=== PATIENT | female | born 1940 | race Caucasian/White ===

== ENCOUNTER 2021-05-08 10:19 | Emergency (ER) | payer OTHER ==
--- OUTSIDE RECORDS SUMMARY | 2021-05-08 10:22 | XMS REPORT | Continuity of Care Document ---
:1940 Author Organization [facility] t Address [address] [place] [address] Care Team Providers Name Role Phone Unavailable Unavailable Unavailable Problems This patient has no known problems. Allergies, Adverse Reactions, Alerts This patient has no known allergies or adverse reactions. Medications This patient has no known medications. Procedures This patient has no known procedures. Encounters Start End Encounter Admission Attending Care Care Encounter Source Date/Time Date/Time Type Type Clinicians Facility Department ID 2021-03-26 Outpatient [facility] [id number] [facility] 14:26:11 [id number] [facility] ent Clinics 2021-03-26 Outpatient [facility] [id number] [facility] 14:24:29 [id number] [facility] ent [facility] Results This patient has no known results.
--- NOTE | 2021-05-08 11:59 | RAD REPORT ---
EXAM DESCRIPTION: US - Extremity Venous Uni Ltd - 05/08/2021 11:47 am CLINICAL HISTORY: PAIN Leg swelling and edema. COMPARISON: Upper Lower Extrem Art Multi dated 04/16/2021 FINDINGS: Left lower extremity venous system was interrogated with Doppler technique. Normal flow, c ompressibility and augmentation was noted. There is no DVT present. IMPRESSION: No evidence of left lower extremity deep venous thrombosis.
--- NOTE | 2021-05-08 12:05 | EDPHYS ---
Physician Documentation [facility] Name: Jami Woodruff Age: 80 yrs Sex: Female : 1940 Arrival Date: 05/08/2021 Time: 10:22 Bed 23 Private MD: ED Physician Trevon De La Cruz HPI: 05/08 10:22 This 80 yrs old Female presents to ER via EMS with complaints of Wound Check. ms3 10:22 Patient presents to ED for recheck of: Ulcerations. The affected area is on the left ms3 leg. Previous treatment: [facility]. Progress: The patient reports no change in pain. 80 yo female presents from [place] via [facility] for Left leg pain. Patient states the pain is a 5/10 and aching. Patient denies alleviating or inciting factors. Patient denies fever, chills, cp, or sob.. Historical: - Allergies: 10:33 No Known Allergies; aa5 - PMHx: 10:33 Venous Insufficiency; aa5 - Immunization history:: Adult Immunizations up to date. - Social history:: Smoking status: Patient denies any tobacco usage or history of. ROS: 10:22 Constitutional: Negative for fever, and chills. Eyes: Negative for injury, pain, ms3 redness, and discharge, ENT: Negative for injury, pain, and discharge, Cardiovascular: Negative for chest pain, and palpitations. Respiratory: Negative for shortness of breath, cough, wheezing, and pleuritic chest pain, Abdomen/GI: Negative for abdominal pain, nausea, vomiting, diarrhea, and constipation, Back: Negative for injury and pain, MS/Extremity: Negative for injury and deformity. 10:22 Skin: Positive for Bilateral leg wounds. Exam: 10:22 Constitutional: This is a well developed, well nourished patient who is awake, alert, ms3 and in no acute distress. Head/Face: Normocephalic, atraumatic. Eyes: Pupils equal round and reactive to light, extra-ocular motions intact. Lids and lashes normal. Conjunctiva and sclera are non-icteric and not injected. Periorbital areas with no swelling, redness, or edema. Neck: Trachea midline, no cervical lymphadenopathy. Supple, full range of motion without nuchal rigidity, or vertebral point tenderness. No Meningismus. Chest/axilla: Normal chest wall appearance and motion. Nontender with no deformity. Cardiovascular: Regular rate and rhythm with a normal S1 and S2. No gallops, murmurs, or rubs. Normal PMI, no JVD. No pulse deficits. Respiratory: Lungs have equal breath sounds bilaterally, clear to auscultation and percussion. No rales, rhonchi or wheezes noted. No increased work of breathing, no retractions or nasal flaring. Abdomen/GI: Soft, non-tender, with normal bowel sounds. No distension or tympany. No guarding or rebound. No evidence of tenderness throughout. 10:22 Skin: lesion(s), located on the left leg, Scabbed patches on bilateral lower extremities. No surrounding erythema, no drainage, no fluctuance.. Vital Signs: 10:22 BP 117 / 60; Pulse 75; Resp 16 S; Temp 97.9(O); Pulse Ox 100% on R/A; Weight 72.57 kg aa5 (R); 12:20 BP 135 / 64; Pulse 79; Resp 18; Pulse Ox 100% on R/A; lr4 13:13 BP 132 / 74; Pulse 76; Resp 18; Pulse Ox 100% ; Pain 3/10; jh6 MDM: 10:22 Differential diagnosis: Venous insufficiency vs DVT vs Cellulitis. Data reviewed: vital ms3 signs, nurses notes, radiologic studies. 10:41 Patient medically screened. ms3 12:05 Data interpreted: Pulse oximetry: on is 100 %. Counseling: I had a detailed discussion ms3 with the patient and/or guardian regarding: the historical points, exam findings, and any diagnostic results supporting the discharge/admit diagnosis, radiology results, the need for outpatient follow up, [facility], to return to the emergency department if symptoms worsen or persist or if there are any questions or concerns that arise at home. ED course: Discussed US results with patient. Wounds do not appear to be cellulitis. Patient to continue wound treatment with [facility]. patient understands/ agrees with plan. All questions answered. Return precautions given to include worsening symptoms, or any other concerns.. 05/08 11:09 Order name: US Extremity Venous Unilateral Ltd; Complete Time: 12:04 ms3 Administered Medications: 12:27 Not Given (Patient Refused): HYDROcodone-acetaminophen 5 mg-325 mg 1 tabs PO once; RASS lr4 on ADMIN: Combtv4, Very Agttd3, Agttd2, Rstlss1, AlertClm0, Drwsy-1, Lt Sdtn-2, Mod Sdtn-3, Dp Sdtn-4, UnArsble-5 Disposition Summary: 05/08/21 12:05 Discharge Ordered Location: Home ms3 Condition: Stable ms3 Diagnosis - Pain in left leg ms3 - Venous insufficiency (chronic) (peripheral) ms3 Followup: ms3 - With: Private Physician - When: 2 - 3 days - Reason: Recheck today's complaints Forms: - Medication Reconciliation Form ms3 - Thank You Letter ms3 - Antibiotic Education ms3 - Prescription Opioid Use ms3 Signatures: Dispatcher [employer] EDMS Klaudia Powers, RN RN aa5 Trevon De La Cruz, DO ms3 Vidya Daniels RN RN jh6 Faiza Campbell RN lr4
--- NOTE | 2021-05-08 12:05 | ER ---
Nurse's Notes [facility] Name: Jami Woodruff Age: 80 yrs Sex: Female : 1940 Arrival Date: 05/08/2021 Time: 10:22 Bed 23 Private MD: Diagnosis: Pain in left leg;Venous insufficiency (chronic) (peripheral) Presentation: 05/08 10:22 Chief complaint: EMS states: pt has history of venous insufficiency with multiple aa5 wounds to mary lower extremities. Sent here for possible infection to wounds and increased pain. Pt lives at [facility] and has wound care by [facility]. 10:22 Acuity: MARTIR 4 aa5 10:22 Method Of Arrival: EMS: [facility] aa5 10:22 Onset of symptoms was May 08, 2021. aa5 10:22 Coronavirus screen: At this time, the client does not indicate any symptoms associated aa5 with coronavirus-19. Ebola Screen: No symptoms or risks identified at this time. Initial Sepsis Screen: Does the patient meet any 2 criteria? No. Patient's initial sepsis screen is negative. Does the patient have a suspected source of infection? No. Patient's initial sepsis screen is negative. Risk Assessment: Do you want to hurt yourself or someone else? Patient reports no desire to harm self or others. 10:22 Care prior to arrival: Glucose check: 140. aa5 Historical: - Allergies: 10:33 No Known Allergies; aa5 - PMHx: 10:33 Venous Insufficiency; aa5 - Immunization history:: Adult Immunizations up to date. - Social history:: Smoking status: Patient denies any tobacco usage or history of. Screenin:39 Abuse screen: Denies threats or abuse. jh6 10:39 Nutritional screening: No deficits noted. Tuberculosis screening: No symptoms or risk jh6 factors identified. Fall Risk None identified. Assessment: 10:39 General: Appears in no apparent distress. Behavior is calm, cooperative. jh6 10:39 Pain: Complains of pain in left leg Pain currently is 6 out of 10 on a pain scale. jh6 Quality of pain is described as aching, Pain began 2-3 days ago. Is continuous. 12:31 Reassessment: Report given to Lilliana palmer, at [facility]. Pt departed ed via wheelchair lr4 with all personal effects, pt in nad, vss. 12:34 Reassessment: Pt awaiting [facility] ride. lr4 Vital Signs: 10:22 BP 117 / 60; Pulse 75; Resp 16 S; Temp 97.9(O); Pulse Ox 100% on R/A; Weight 72.57 kg aa5 (R); 12:20 BP 135 / 64; Pulse 79; Resp 18; Pulse Ox 100% on R/A; lr4 13:13 BP 132 / 74; Pulse 76; Resp 18; Pulse Ox 100% ; Pain 3/10; 6 ED Course: 10:22 Patient arrived in ED. em1 10:22 Arm band placed on Patient placed in an exam room, on a stretcher. aa5 10:22 Patient has correct armband on for positive identification. Bed in low position. Call aa5 light in reach. Side rails up X2. 10:25 Trevon De La Cruz DO is Attending Physician. ms3 10:33 Triage completed. aa5 11:01 Vidya Daniels, RN is Primary Nurse. jh6 11:25 No provider procedures requiring assistance completed. jh6 11:26 Patient taken to ultrasound. via stretcher. jh6 11:47 US Extremity Venous Unilateral Ltd In Process Unspecified. EDMS 12:35 Patient did not have IV access during this emergency room visit. lr4 Administered Medications: 12:27 Not Given (Patient Refused): HYDROcodone-acetaminophen 5 mg-325 mg 1 tabs PO once; RASS lr4 on ADMIN: Combtv4, Very Agttd3, Agttd2, Rstlss1, AlertClm0, Drwsy-1, Lt Sdtn-2, Mod Sdtn-3, Dp Sdtn-4, UnArsble-5 Outcome: 12:05 Discharge ordered by . ms3 12:34 Discharged to [facility]. Report called to Lilliana Pt going back to assisted living lr4 facility[facility] 12:34 Condition: stable 12:34 Discharge instructions given to patient, [facility]. 13:13 Patient left the ED. 6 Signatures: Dispatcher [employer] EDMS Jace Catalan em1 Klaudia Powers, RN RN aa5 Trevon De La Cruz DO DO ms3 Vidya Daniels, RN RN 6 Campbell, Faiza, RN RN lr4
[2021-05-08] MEDS ORDERED: HYDROCODONE/APAP 5/325 MG TAB ONE (12:13)
[2021-05-08 13:23] VITALS: TEMP 97.9; O2SAT 100
[2021-05-08 13:26] VITALS: BP 132/74
== END 2021-05-08 13:13 | disposition home or self-care (01) ==
LOC: ER 10:19
DX: I87.2 Venous insufficiency (chronic) (peripheral) (principal)
CPT/HCPCS: 93971; 99284

== ENCOUNTER 2021-05-29 18:36 | Emergency (ER) | payer OTHER ==
--- OUTSIDE RECORDS SUMMARY | 2021-05-29 18:41 | XMS REPORT | Continuity of Care Document ---
:1940 Author Organization [facility] t Address [address] [place] [address] Care Team Providers Name Role Phone MARY Attending Clinician Unavailable Payers Payer Name Policy Type Policy Number Effective Date Expiration Date S emy [employer] MEDICARE [id number] 2021 ADVANTAGE HMO 00:00:00 Problems This patient has no known problems. Allergies, Adverse Reactions, Alerts This patient has no known allergies or adverse reactions. Medications This patient has no known medications. Procedures This patient has no known procedures. Encounters Start End Encounter Admission Attending Care Care Encounter Source Date/Time Date/Time Type Type Clinicians Facility Department ID 2021-05-29 Outpatient [facility] [id number] [place] 14:19:57 [place] [id number] [facility] 2021-05-19 Outpatient [facility] [id number] [place] 10:27:29 [facility] 2021-03-26 Outpatient [facility] [id number] [facility] 14:26:11 [id number] [facility] ent Clinics 2021-03-26 Outpatient [facility] [id number] [facility] [address] 14:24:29 [id number] [facility] Clinics Results This patient has no known results.
--- NOTE | 2021-05-29 20:38 | RAD REPORT ---
EXAM DESCRIPTION: CT - Head Brain Wo Cont - 05/29/2021 8:10 pm CLINICAL HISTORY: ams COMPARISON: No comparisons TECHNIQUE: Axial 5 mm thick images of the head were obtained without IV contrast. All CT scans are performed using dose optimization technique as appropriate and may include automated exposure control or mA/KV adjustment according to patient size. FINDINGS: No intracranial hemorrhage, mass, edema or shift of mid-line structures. No cortical level acute infarction. Moderate severity atrophy changes are present with ventricles in proportion. No ab normal extra-axial fluid collections. Advanced chronic ischemic change seen throughout the cerebral w jhon matter extending into the basal ganglia. Dense arterial tree calcifications are present. Mastoid air cells and visualized portions of the paranasal sinuses are clear. No acute bony findings. IMPRESSION: No acute intracranial finding identifiable. Prominent atrophy and advanced chronic ische serenity changes are present.
--- NOTE | 2021-05-29 20:40 | RAD REPORT ---
EXAM DESCRIPTION: RAD - Chest Single View - 05/29/2021 8:30 pm CLINICAL HISTORY: DYSPNEA COMPARISON: Two view chest 02/04/2021 TECHNIQUE: AP portable chest image was obtained 05/29/2021 8:30 pm . FINDINGS: Minimal focus of opacification in the left base in the setting of a mild chronic interstit ial pattern. A very minimal left base pneumonia cannot be excluded. Patient can be monitored for any left base clinical findings with re- imaging performed the patient has persistent or progressive find ings. Elsewhere the lung celis are clear. Heart and vasculature are normal. No measurable pleural effusion and no pneumothorax. No acute bony abnormality seen. No acute aortic findings suspected. IMPRESSION: Very minimal left base opacification possibly atelectasis rather than early pneumonia pe er Correlation be made with any left base symptoms with follow-up imaging obtained of the patient has pe rsistent or progressive exam findings.
[2021-05-29 20:45] LABS: Absolute Lymphocytes (CBC) 1.5 K/uL (0.7-4.9); Hematocrit 31.7 % (36.0-45.0); MPV 6.4 fL (7.6-11.3); RBC Red Blood Cell Count 3.59 M/uL (3.86-4.86)
[2021-05-29 20:46] LABS: Protime INR 1.13
[2021-05-29 21:10] LABS: Potassium 3.2 mmol/L (3.5-5.1)
[2021-05-29 21:10] LABS: Blood Gas Oxyhemoglobin 96.7 % (94-97); Blood O2 Saturation 98.8 % (92-98.5)
[2021-05-29 21:11] LABS: Albumin 2.2 g/dL (3.4-5.0); Bilirubin Direct 0.1 mg/dL (0-0.2); Bilirubin Total 0.4 mg/dL (0.2-1.0); Protein, Total 7.2 g/dL (6.4-8.2)
[2021-05-29 21:12] LABS: Troponin High Sensitivity 8.6 (<58.9)
[2021-05-29 21:27] LABS: Urine Blood 3+ (Negative); Urine Glucose Negative (Negative); Urine Protein 2+ (Negative)
--- NOTE | 2021-05-29 21:53 | RAD REPORT ---
EXAM DESCRIPTION: CT - Thorax Wo Con - 05/29/2021 9:41 pm CLINICAL HISTORY: pna COMPARISON: <Comparisons> TECHNIQUE: Axial 5 mm thick images of the chest were obtained without IV contrast. All CT scans are performed using dose optimization technique as appropriate and may include automated exposure control or mA/KV adjustment according to patient size. FINDINGS: No acute infiltrate, pulmonary hemorrhage or other acute lung parenchymal finding. Patient has a few scattered less than 6 mm sized noncalcified nodules in the lung parenchyma. No worrisome m ass or infiltrate. No pleural thickening or pleural effusion. No pneumothorax. No abnormal mediastinal or hilar masses or lymphadenopathy seen. No gross aortic or pulmonary artery finding suspected. Assessment is limited in the absence of IV contrast. No cardiomegaly or pericardi al effusion. Coronary artery and aortic calcifications are present. Small hiatal hernia is present wi th approximately 20% of the stomach intrathoracic. There is tortuosity of the aorta. No chest wall mass or abnormal axillary lymphadenopathy. Thoracic spine degenerative changes are present. No acute findings seen. The small pulmonary nodules are not likely of significance. Fleischner Society 2017 criteria indicate no follow-up recommended if the patient is considered low risk. A 12 month follow-up CT chest could be obtained if the patient is considered high risk. IMPRESSION: CT chest imaging shows no acute or significant finding. The small less than 6 mm pulmonary nodules are not likely clinically significant. Follow-up recommen dation detailed in the body of the report.
--- NOTE | 2021-05-29 22:19 | ER ---
Nurse's Notes [facility] Name: Jami Woodruff Age: 80 yrs Sex: Female : 1940 Arrival Date: 05/29/2021 Time: 18:51 Bed 18 Private MD: Diagnosis: Dementia in other diseases classified elsewhere without behavioral disturbance;Solitary pulmonary nodule;Hypokalemia;Unspecified kidney failure-renal insufficency Presentation: 05/29 18:53 Chief complaint: Patient states: pt presented to ED with EMS reporting low O2 sats. mariee when EMS got to facility O2 around 96-97 RA. EMS assess mental status and pt unable to answer time and date and current president correctly. per facility unaware that PT has any memory issues. Pt presented to ED with Alter mental status. Coronavirus screen: Vaccine status: Patient reports being unvaccinated. Coronavirus screen: Vaccine status: Patient reports receiving the 2nd dose of the covid vaccine. Ebola Screen: Patient denies travel to an Ebola-affected area in the 21 days before illness onset. Initial Sepsis Screen: Does the patient meet any 2 criteria? No. Patient's initial sepsis screen is negative. Does the patient have a suspected source of infection? No. Patient's initial sepsis screen is negative. Risk Assessment: Do you want to hurt yourself or someone else? Patient reports no desire to harm self or others. Onset of symptoms was May 29, 2021. 18:53 Method Of Arrival: EMS: [facility] 18:53 Acuity: MARTIR 3 mariee Triage Assessment: 19:01 General: Appears in no apparent distress. Behavior is cooperative, agitated. Pain: mariee Denies pain. Historical: - Allergies: 18:58 No Known Allergies; mariee - Home Meds: 18:58 clopidogrel 75 mg oral tab [Active]; hydrochlorothiazide 12.5 mg Oral cap [Active]; mariee Myrbetriq 50 mg oral Tb24 1 tab once daily [Active]; Santyl 250 unit/gram Topical oint [Active]; - PMHx: 19:01 venous insufficiency; mariee - Immunization history:: Adult Immunizations up to date. - Social history:: Smoking status: Patient denies any tobacco usage or history of. - Family history:: not pertinent. Screenin:01 Abuse screen: Denies threats or abuse. Denies injuries from another. Nutritional mariee screening: No deficits noted. Tuberculosis screening: No symptoms or risk factors identified. Fall Risk Mental Status-. Assessment: 19:01 General: Appears in no apparent distress. Behavior is cooperative, agitated. Pain: mariee Denies pain. 19:01 Neuro: Level of Consciousness is awake, alert, obeys commands, Oriented to person. mariee 20:00 General: Appears in no apparent distress. Behavior is cooperative, appropriate for age. sm5 Pain: Denies pain. Neuro: Level of Consciousness is awake, alert, obeys commands, Oriented to person. Cardiovascular: No deficits noted. Capillary refill < 3 seconds Patient's skin is warm and dry. Respiratory: No deficits noted. Airway is patent Trachea midline Respiratory effort is even, unlabored. 21:04 Reassessment: No changes from previously documented assessment. Patient and/or family 5 updated on plan of care and expected duration. Pain level reassessed. 22:00 Reassessment: No changes from previously documented assessment. 5 23:17 Reassessment: No changes from previously documented assessment. [facility] Vital Signs: 18:53 BP 122 / 98; Pulse 70; Resp 16; Temp 97.6; Pulse Ox 98% on R/A; Weight 61.23 kg; Height mariee 5 ft. 4 in. (162.56 cm); 21:00 BP 125 / 89; Pulse 79; Resp 18; Pulse Ox 100% on R/A; sm5 23:16 BP 117 / 87; Pulse 75; Resp 17; Pulse Ox 99% on R/A; sm5 18:53 Body Mass Index 23.17 (61.23 kg, 162.56 cm) ED Course: 18:51 Patient arrived in ED. kz 18:53 Maria Eugenia Nevarez, RN is Primary Nurse. mariee 18:58 Triage completed. mariee 19:01 Arm band placed on. mariee 19:01 Patient has correct armband on for positive identification. Bed in low position. mariee 19:22 Bryce Perez MD is Attending Physician. [facility] 20:12 CT Head Brain wo Cont In Process Unspecified. EDMS 20:30 X-ray completed. Portable x-ray completed in exam room. Patient tolerated procedure mh1 well. 20:32 XRAY Chest (1 view) In Process Unspecified. EDMS 20:50 Inserted saline lock: 22 gauge in right antecubital area, using aseptic technique. 5 Blood collected. 21:29 Urine Culture Sent. 5 21:43 CT Chest Wo Con In Process Unspecified. EDMS 23:17 No provider procedures requiring assistance completed. IV discontinued, intact, sm5 bleeding controlled, No redness/swelling at site. Pressure dressing applied. Administered Medications: 22:29 Drug: NS 0.9% 500 ml Route: IV; Rate: bolus; Site: left antecubital; 5 Outcome: 22:18 Discharge ordered by MD. stewart 23:18 Discharged to home via ambulance. 5 23:18 Condition: stable 23:18 Discharge instructions given to patient, Instructed on discharge instructions, follow up and referral plans. Demonstrated understanding of instructions, follow-up care. 23:19 Patient left the ED. 5 Signatures: Dispatcher [employer] EDMS Bryce Perez MD MD cha Harvey, [facility] Clarice Nieves RN Maria Eugenia Minor RN RN ha Zapata, Kelly kz Corrections: (The following items were deleted from the chart) 20:50 19:01 Assist provider with bone marrow aspiration jaylene campbell
--- NOTE | 2021-05-29 22:19 | EDPHYS ---
Physician Documentation [facility] Name: Jami Woodruff Age: 80 yrs Sex: Female : 1940 Arrival Date: 05/29/2021 Time: 18:51 Bed 18 Private MD: ED Physician Bryce Perez HPI: 05/29 19:55 This 80 yrs old Female presents to ER via EMS with unknown complaint. terry 19:55 This 80 yrs old Female presents to ER via EMS with complaints of dementia and terry sob. 19:55 The patient has shortness of breath at rest, with light activity. Onset: The terry symptoms/episode began/occurred just prior to arrival. Duration: The symptoms are continuous, and are unchanged since they started. The patient's shortness of breath has no apparent modifying factors. The patient presents with confusion. Possible causes: unknown. Associated signs and symptoms: The patient has no apparent associated signs or symptoms. Severity of symptoms: At their worst the symptoms were mild in the emergency department the symptoms are unchanged. Associated signs and symptoms: The patient has no apparent associated signs or symptoms. Historical: - Allergies: 18:58 No Known Allergies; mariee - Home Meds: 18:58 clopidogrel 75 mg oral tab [Active]; hydrochlorothiazide 12.5 mg Oral cap [Active]; mariee Myrbetriq 50 mg oral Tb24 1 tab once daily [Active]; Santyl 250 unit/gram Topical oint [Active]; - PMHx: 19:01 venous insufficiency; mariee - Immunization history:: Adult Immunizations up to date. - Social history:: Smoking status: Patient denies any tobacco usage or history of. - Family history:: not pertinent. ROS: 19:55 Constitutional: Negative for fever, chills, and weight loss, Eyes: Negative for injury, terry pain, redness, and discharge, ENT: Negative for injury, pain, and discharge, Neck: Negative for injury, pain, and swelling, Cardiovascular: Negative for chest pain, palpitations, and edema, Respiratory: Negative for shortness of breath, cough, wheezing, and pleuritic chest pain, Abdomen/GI: Negative for abdominal pain, nausea, vomiting, diarrhea, and constipation, Back: Negative for injury and pain, : Negative for injury, bleeding, discharge, and swelling, MS/Extremity: Negative for injury and deformity, Skin: Negative for injury, rash, and discoloration, Psych: Negative for depression, anxiety, suicide ideation, homicidal ideation, and hallucinations, Allergy/Immunology: Negative for hives, rash, and allergies, Endocrine: Negative for neck swelling, polydipsia, polyuria, polyphagia, and marked weight changes, Hematologic/Lymphatic: Negative for swollen nodes, abnormal bleeding, and unusual bruising. 19:55 Neuro: Positive for dementia. Exam: 19:55 Constitutional: This is a well developed, well nourished patient who is awake, alert, terry and in no acute distress. Head/Face: Normocephalic, atraumatic. Eyes: Pupils equal round and reactive to light, extra-ocular motions intact. Lids and lashes normal. Conjunctiva and sclera are non-icteric and not injected. Cornea within normal limits. Periorbital areas with no swelling, redness, or edema. ENT: Nares patent. No nasal discharge, no septal abnormalities noted. Tympanic membranes are normal and external auditory canals are clear. Oropharynx with no redness, swelling, or masses, exudates, or evidence of obstruction, uvula midline. Mucous membranes moist. Neck: Trachea midline, no thyromegaly or masses palpated, and no cervical lymphadenopathy. Supple, full range of motion without nuchal rigidity, or vertebral point tenderness. No Meningismus. Chest/axilla: Normal chest wall appearance and motion. Nontender with no deformity. No lesions are appreciated. Cardiovascular: Regular rate and rhythm with a normal S1 and S2. No gallops, murmurs, or rubs. Normal PMI, no JVD. No pulse deficits. Respiratory: Lungs have equal breath sounds bilaterally, clear to auscultation and percussion. No rales, rhonchi or wheezes noted. No increased work of breathing, no retractions or nasal flaring. Abdomen/GI: Soft, non-tender, with normal bowel sounds. No distension or tympany. No guarding or rebound. No evidence of tenderness throughout. Back: No spinal tenderness. No costovertebral tenderness. Full range of motion. Female : Normal external genitalia. Skin: Warm, dry with normal turgor. Normal color with no rashes, no lesions, and no evidence of cellulitis. MS/ Extremity: Pulses equal, no cyanosis. Neurovascular intact. Full, normal range of motion. Psych: Awake, alert, with orientation to person, place and time. Behavior, mood, and affect are within normal limits. 19:55 Neuro: Orientation: to person, Not oriented to place, time, situation, Mentation: is normal, Memory: immediate memory is impaired, remote memory is impaired, recent memory is impaired, Cerebellar function: is grossly normal, Motor: is grossly normal based on the patient's age, no acute changes, moves all fours, Sensation: is normal, Gait: not tested. seizure activity, is not displayed by the patient. 21:01 ECG was reviewed by the Attending Physician. terry 22:16 Musculoskeletal/extremity: DVT Exam: No signs of deep vein thrombosis. no pain, no terry swelling, no tenderness, negative Homans' sign noted on exam, no appreciated bluish discoloration, no erythema, no increased warmth. Vital Signs: 18:53 BP 122 / 98; Pulse 70; Resp 16; Temp 97.6; Pulse Ox 98% on R/A; Weight 61.23 kg; Height mariee 5 ft. 4 in. (162.56 cm); 21:00 BP 125 / 89; Pulse 79; Resp 18; Pulse Ox 100% on R/A; sm5 23:16 BP 117 / 87; Pulse 75; Resp 17; Pulse Ox 99% on R/A; sm5 18:53 Body Mass Index 23.17 (61.23 kg, 162.56 cm) mariee MDM: 19:22 Patient medically screened. terry 20:01 Differential diagnosis: Anxiety Reaction asthma, Bronchitis CHF exacerbation, Chronic terry Obstructive Pulmonary Disease pneumonia, Pneumothorax reactive airway disease. Antibiotic administration: Not indicated. Antibiotic administration: Not indicated, the patient does not have an appreciated infiltrate. Differential Diagnosis: CVA, electrolyte abnormality, hypoglycemia, intracranial bleed, pneumonia, volume depletion. The patient's Wells Deep Vein Thrombosis Score was calculated as follows: Total Score: 0-2 Pts- Low Risk. The patient's pulmonary embolism risk score was calculated as follows: Total Score: 0-2 points. This patient was found to be at low risk for a pulmonary embolism by using the Well's assessment criteria. Immunization status: Pneumococcal vaccine: Influenza vaccine: Data reviewed: vital signs, nurses notes, lab test result(s), EKG, radiologic studies, CT scan, plain films. Data interpreted: manager bridge: rate is 70 beats/min, rhythm is regular, Pulse oximetry: on room air is 98 %. Test interpretation: by ED physician or midlevel provider: ECG, plain radiologic studies. Counseling: I had a detailed discussion with the patient and/or guardian regarding: the historical points, exam findings, and any diagnostic results supporting the discharge/admit diagnosis, lab results, radiology results, the need for outpatient follow up, for definitive care, an physician advisor, a psychiatrist. 05/29 19:52 Order name: Basic Metabolic Panel; Complete Time: 21:20 [facility] 05/29 19:52 Order name: CBC with Diff; Complete Time: 20:56 [facility] 05/29 19:52 Order name: LFT's; Complete Time: 21:20 [facility] 05/29 19:52 Order name: Magnesium; Complete Time: 21:20 [facility] 05/29 19:52 Order name: NT PRO-BNP; Complete Time: 21:20 [facility] 05/29 19:52 Order name: PT-INR; Complete Time: 20:56 [facility] 05/29 19:00 Order name: XRAY Chest (1 view); Complete Time: 20:56 05/29 19:52 Order name: Troponin HS; Complete Time: 21:20 [facility] 05/29 19:52 Order name: Urine Culture [facility] 05/29 19:52 Order name: CT Head Brain wo Cont; Complete Time: 20:56 [facility] 05/29 20:04 Order name: ABG; Complete Time: 21:12 [facility] 05/29 21:21 Order name: CT Chest Wo Con; Complete Time: 22:15 [facility] 05/29 21:27 Order name: Urine Dipstick-Ancillary; Complete Time: 21:41 [facility] 05/29 19:52 Order name: EKG; Complete Time: 19:53 [facility] 05/29 19:52 Order name: Cardiac monitoring; Complete Time: 20:29 [facility] 05/29 19:52 Order name: EKG - Nurse/Tech; Complete Time: 20:29 [facility] 05/29 19:52 Order name: IV Saline Lock; Complete Time: 20:49 [facility] 05/29 19:52 Order name: Labs collected and sent; Complete Time: 20:49 [facility] 05/29 19:52 Order name: O2 Per Protocol; Complete Time: 20:29 [facility] 05/29 19:52 Order name: O2 Sat Monitoring; Complete Time: 20:29 [facility] 05/29 19:52 Order name: Urine Dipstick-Ancillary (obtain specimen); Complete Time: terry 05/29 22:17 Order name: PO challenge: juice; Complete Time: : [facility] EC: Rate is 73 beats/min. Rhythm is regular. QRS [place] is Normal. [place] interval is normal. QRS terry interval is normal. QT interval is normal. No Q waves. T waves are Normal. No ST changes noted. Clinical impression: Normal ECG and No evidence of ischemia. Interpreted by me. Reviewed by me. Administered Medications: Drug: NS 0.9% 500 ml Route: IV; Rate: bolus; Site: left antecubital; sm5 Disposition Summary: 05/29/21 22:18 Discharge Ordered Location: Home terry Problem: new terry Symptoms: have improved terry Condition: Stable terry Diagnosis - Dementia in other diseases classified elsewhere without behavioral disturbance terry - Solitary pulmonary nodule terry - Hypokalemia terry - Unspecified kidney failure - renal insufficency terry Followup: terry - With: Private Physician - When: 2 - 3 days - Reason: Recheck today's complaints, Continuance of care, Re-evaluation by your physician Discharge Instructions: - Discharge Summary Sheet terry - Dementia terry - Chronic Kidney Disease, Adult, Cllt-yq-Nhhm terry - Pulmonary Nodule terry - Pulmonary Nodule, Ijro-sl-Fbrt terry - Hypokalemia terry - Dementia, Svch-if-Apzt terry Forms: - Medication Reconciliation Form terry - Thank You Letter terry - Antibiotic Education terry - Prescription Opioid Use terry Signatures: Dispatcher [employer] EDMS Bryce Perez MD MD cha Attema, Lee, CAREER CENTER DIRECTOR-C CAREER CENTER DIRECTOR-[facility] Clarice Nieves, RN RN sm5 Au-ChristopherrMaria Eugenia RN RN mariee Corrections: (The following items were deleted from the chart) 21: 21:11 Chest For PE Angio+CT.RAD.BRZ ordered. EDMS EDMS
[2021-05-29] MEDS ORDERED: NA CHLORIDE 0.9% 500 ML ONE (22:22)
[2021-05-30 04:03] VITALS: TEMP 97.6
[2021-05-30 04:06] VITALS: BP 117/87; O2SAT 99
--- NOTE | 2021-06-02 11:23 | EKG ---
Test Date: 2021-05-29 Test Time: 20:20:30 Vp Human Resources: SARAI MEASUREMENT RESULTS: Intervals: Rate: 73 UT: 182 QRSD: 80 QT: 442 QTc: 486 [place]: P: 96 UT: 182 QRS: 23 T: 49 INTERPRETIVE STATEMENTS: Sinus rhythm with premature supraventricular complexes Low voltage QRS Cannot rule out Anterior infarct, age undetermined Abnormal ECG Compared to ECG 12/24/2020 12:50:32 Atrial premature complex(es) now present Low QRS voltage now present Myocardial infarct finding now present Ventricular premature complex(es) no longer present Electronically Signed On 06-02-21 11:13:57 CDT by Toni Madera
== END 2021-05-29 23:19 | disposition home or self-care (01) ==
LOC: ER 18:36
DX: R91.1 Solitary pulmonary nodule (principal); F03.90 Unspecified dementia, unspecified severity, without behavioral disturbance, psychotic disturbance, mood disturbance, and anxiety; E87.6 Hypokalemia; N19 Unspecified kidney failure
CPT/HCPCS: 93005; 87088; 85025; 87086; 80048; 36415; 83735; 85610; 80076; 81003; 84484; 83880; 70450; 71250; 71045; 82805; 99284; J7040

== ENCOUNTER 2021-06-03 20:48 | Inpatient (IN) | payer OTHER ==
--- OUTSIDE RECORDS SUMMARY | 2021-06-03 20:51 | XMS REPORT | Continuity of Care Document ---
:1940 Author Organization [facility] t Address [address] [place] [address] Care Team Providers Name Role Phone MATTHEW Attending Clinician Unavailable Payers Payer Name Policy Type Policy Number Effective Date Expiration Date S ource [employer] MEDICARE [id number] 2021 2021 ADVANTAGE HMO 00:00:00 00:00:00 Problems Condition Condition Condition Status Onset Resolution Last Treating Co mments Source Name Details Category Date Date Treatment Clinician Date Venous Venous Disease Active [facility] stasis stasis [facility] 00:00: 00 Varicose Varicose Disease Active [facility] veins of veins of [facility] both lower both lower 00:00: extremitie extremitie 00 s with s with inflammati inflammati on on Allergies, Adverse Reactions, Alerts This patient has no known allergies or adverse reactions. Social History Social Habit Start Date Stop Date Quantity Comments Source Tobacco use and 2021-06-02 2021-06-02 [facility]okeless tobacco [facility] exposure 00:00:00 00:00:00 non-user Sex [facility]igned At [birth year] [facility] 00:[facility] 00[facility]:00 Smoking Status Start Date Stop Date Source Never smoked tobacco [facility] [place] [facility] Medications Ordered Filled Start Stop Current Ordering Indication Dosage Frequency Signature Comments Components Source Medication Medication Date Date Medication? Clinician (SIG) Name Name acetaminoph 2021- Yes 1 (one) [facility] en-codeine 330 04-10 time each Hea lth (Tylenol 00:00: 04:59 day at the #4) 300-60 00 :00 same time. MG tablet clopidogrel Yes 1{tbl} 1 tablet. [facility] (Plavix) 75 3-09 Health MG tablet 00:00: 00 hydroCHLORO Yes 1 (one) [facility] thiazide 3-02 time each Health (HYDRODiuri 00:00: day at the ) 12.5 MG 00 same time. tablet Mirabegron Yes 1{tbl} 1 tablet. [facility] 1-05 [facility] (Myrbetriq) 00:00: 50 MG 00 tablet sustained-r elease 24 hour Procedures This patient has no known procedures. Encounters Start End Encounter Admission Attending Care Care Encounter Source Date/Time Date/Time Type Type Clinicians Facility Department ID 2021-06-03 Outpatient [facility] [id number] [facility] 07:[place] [place] [address] 2021-06-02 Outpatient [facility] [id number] [facility] 10:25:35 [place] [id number] [facility] 2021-05-30 [facility] [id number] 10:21:15 JORGE [id number] [facility] 2021-05-29 Outpatient [facility] [id number] [facility] 14:19:57 JORGE [id number] [facility] 2021-03-26 Outpatient [facility] [id number] [facility] [address] 14:26:11 [id number] [facility] 2021-03-26 Outpatient [facility] [id number] 14:24:29 [id number] [facility] 2021-06-02 2021-06-02 Office Matthew [facility] [id number] [facility] 10:00:00 10:15:00 Visit Jorge HERZOG [id number] Jose F [facility]ADLEY [id number] [facility] [id number] 1 Results This patient has no known results.
--- NOTE | 2021-06-03 21:30 | EDPHYS ---
Physician Documentation [facility] Name: Jami Woodruff Age: 80 yrs Sex: Female : 1940 Arrival Date: 06/03/2021 Time: 20:54 Bed 5 Private MD: ED Physician Bryce Perez HPI: 06/03 21:18 This 80 yrs old Female presents to ER via EMS with complaints of bilateral le terry venous ulcerations. 21:18 The patient presents with decreased range of motion, an injury, pain. The complaints terry affect the right leg and left leg. Context: The problem was sustained at home, resulted from venous ulcerations. Onset: The symptoms/episode began/occurred 14 day(s) ago. Modifying factors: The symptoms are alleviated by nothing. the symptoms are aggravated by nothing. Associated signs and symptoms: The patient has no apparent associated signs or symptoms. The patient presents with decreased range of motion, an injury. The complaints affect the right foot, left foot, right leg and left leg. Context: The problem was sustained at home, resulted from a chronic condition, venous stasis. Historical: - Allergies: 21:04 No Known Allergies; bb - Home Meds: 21:04 Tylenol-Codeine #4 300-60 mg Oral tab daily [Active]; clopidogrel 75 mg Oral tab bb [Active]; hydrochlorothiazide 12.5 mg Oral cap [Active]; Myrbetriq 50 mg Oral Tb24 1 tab once daily [Active]; Santyl 250 unit/gram Topical oint [Active]; Zofran Oral [Active]; - PMHx: 21:04 venous insufficiency; bb - Immunization history:: Adult Immunizations up to date. - Social history:: Smoking status: unknown. - Family history:: not pertinent. ROS: 21:18 Constitutional: Negative for fever, chills, and weight loss, Eyes: Negative for injury, terry pain, redness, and discharge, ENT: Negative for injury, pain, and discharge, Neck: Negative for injury, pain, and swelling, Cardiovascular: Negative for chest pain, palpitations, and edema, Respiratory: Negative for shortness of breath, cough, wheezing, and pleuritic chest pain, Abdomen/GI: Negative for abdominal pain, nausea, vomiting, diarrhea, and constipation, Back: Negative for injury and pain, : Negative for injury, bleeding, discharge, and swelling, Neuro: Negative for headache, weakness, numbness, tingling, and seizure, Psych: Negative for depression, anxiety, suicide ideation, homicidal ideation, and hallucinations, Allergy/Immunology: Negative for hives, rash, and allergies, Endocrine: Negative for neck swelling, polydipsia, polyuria, polyphagia, and marked weight changes, Hematologic/Lymphatic: Negative for swollen nodes, abnormal bleeding, and unusual bruising. 21:18 MS/extremity: Positive for decreased range of motion, erythema, pain, swelling, tenderness, of the right foot, left foot, right leg and left leg. Exam: 21:18 Constitutional: This is a well developed, well nourished patient who is awake, alert, terry and in no acute distress. Head/Face: Normocephalic, atraumatic. Eyes: Pupils equal round and reactive to light, extra-ocular motions intact. Lids and lashes normal. Conjunctiva and sclera are non-icteric and not injected. Cornea within normal limits. Periorbital areas with no swelling, redness, or edema. ENT: Nares patent. No nasal discharge, no septal abnormalities noted. Tympanic membranes are normal and external auditory canals are clear. Oropharynx with no redness, swelling, or masses, exudates, or evidence of obstruction, uvula midline. Mucous membranes moist. Neck: Trachea midline, no thyromegaly or masses palpated, and no cervical lymphadenopathy. Supple, full range of motion without nuchal rigidity, or vertebral point tenderness. No Meningismus. Chest/axilla: Normal chest wall appearance and motion. Nontender with no deformity. No lesions are appreciated. Cardiovascular: Regular rate and rhythm with a normal S1 and S2. No gallops, murmurs, or rubs. Normal PMI, no JVD. No pulse deficits. Respiratory: Lungs have equal breath sounds bilaterally, clear to auscultation and percussion. No rales, rhonchi or wheezes noted. No increased work of breathing, no retractions or nasal flaring. Abdomen/GI: Soft, non-tender, with normal bowel sounds. No distension or tympany. No guarding or rebound. No evidence of tenderness throughout. Back: No spinal tenderness. No costovertebral tenderness. Full range of motion. Female : Normal external genitalia. Skin: Warm, dry with normal turgor. Normal color with no rashes, no lesions, and no evidence of cellulitis. Neuro: Awake and alert, GCS 15, oriented to person, place, time, and situation. Cranial nerves II-XII grossly intact. Motor strength 5/5 in all extremities. Sensory grossly intact. Cerebellar exam normal. Normal gait. Psych: Awake, alert, with orientation to person, place and time. Behavior, mood, and affect are within normal limits. 21:18 Musculoskeletal/extremity: Circulation is intact in all extremities. Sensation intact. Compartment Syndrome exam of affected extremity: is normal. DVT Exam: negative Homans' sign noted on exam, no appreciated bluish discoloration, no erythema, no increased warmth, pain, swelling, tenderness. 23:36 ECG was reviewed by the Attending Physician. [facility] Vital Signs: 21:02 BP 129 / 72; Pulse 89; Resp 16 S; Pulse Ox 95% on R/A; Weight 67.59 kg (R); Height 5 bb ft. 8 in. (172.72 cm) (R); 21:45 BP 124 / 71; Pulse 89; Resp 16; Pulse Ox 100% on R/A; al4 22:45 BP 119 / 55; Pulse 69; Resp 17; Pulse Ox 100% on R/A; al4 23:15 BP 134 / 64; Pulse 86; Resp 16 S; Pulse Ox 100% on R/A; al4 06/04 02:31 BP 112 / 56; Pulse 90; Resp 17; Pulse Ox 100% on R/A; al4 02:49 BP 116 / 56; Pulse 89; Resp 17; Pulse Ox 99% ; al4 06/03 21:02 Body Mass Index 22.66 (67.59 kg, 172.72 cm) Procedures: 01:30 Peripheral line: by aseptic technique a peripheral line was placed in the left external [facility] jugular vein. MDM: 06/03 21:05 Patient medically screened. [facility] 21:25 Differential diagnosis: contusion, tendonitis, sprain, cellulitis. Data reviewed: vital [facility] signs, nurses notes, lab test result(s), EKG, radiologic studies, plain films. Data interpreted: site monitor: rate is 89 beats/min. Test interpretation: by ED physician or midlevel provider: ECG, plain radiologic studies. Counseling: I had a detailed discussion with the patient and/or guardian regarding: the historical points, exam findings, and any diagnostic results supporting the discharge/admit diagnosis, lab results, radiology results, the need for further work-up and treatment in the hospital. 06/03 21:18 Order name: Basic Metabolic Panel; Complete Time: :26 06/03 21:18 Order name: CBC with Diff; Complete Time: 23:19 06/03 21:18 Order name: LFT's; Complete Time: :06/03 21:18 Order name: Magnesium; Complete Time: :06/03 21:18 Order name: NT PRO-BNP; Complete Time: :06/03 21:18 Order name: PT-INR; Complete Time: :06/03 21:18 Order name: Troponin HS; Complete Time: :06/03 21:18 Order name: XRAY Chest (1 view); Complete Time: :06/03 21:18 Order name: Foot Left 3 View XRAY; Complete Time: :06/03 21:18 Order name: Foot Right 3 View XRAY; Complete Time: :06/03 21:18 Order name: Wound Culture 06/03 21:18 Order name: SARS-COV-2 RT PCR (Document "Date of Onset" if Symptomatic) 06/03 23:35 Order name: Blood Culture Adult (2) 06/03 21:18 Order name: EKG; Complete Time: 21:19 06/03 21:18 Order name: Cardiac monitoring; Complete Time: 00:01 06/03 21:18 Order name: EKG - Nurse/Tech; Complete Time: 23:24 06/03 21:18 Order name: IV Saline Lock; Complete Time: 00:01 06/03 21:18 Order name: Labs collected and sent; Complete Time: 23:23 06/03 21:18 Order name: O2 Per Protocol; Complete Time: 23:23 06/03 21:18 Order name: O2 Sat Monitoring; Complete Time: 23:23 terry EC:36 Rate is 91 beats/min. Rhythm is regular. QRS [place] is Normal. [place] interval is normal. QRS terry interval is normal. QT interval is normal. No Q waves. T waves are Normal. No ST changes noted. Clinical impression: Normal ECG and No evidence of ischemia. Interpreted by me. Reviewed by me. Administered Medications: 23:08 Drug: Tetanus-Diphtheria Toxoid Adult 0.5 ml {Aging Room Operator: Camp[place]. Exp: al4 05/10/2023. Lot #: [id number]. } Route: IM; Site: right deltoid; 06/04 01:28 Follow up: Response: No adverse reaction al4 00:00 Drug: Zosyn (piperacillin-tazobactam) 3.375 grams Route: IVPB; Infused Over: 60 mins; al4 Site: left antecubital; 03:05 Follow up: IV Status: Completed infusion al4 00:00 Drug: NS 0.9% 1000 ml Route: IV; Rate: 125 ml/hr; Site: left antecubital; al4 02:30 Drug: Zofran (Ondansetron) 4 mg Route: IVP; Site: left jugular; al4 03:05 Follow up: Response: No adverse reaction al4 02:31 Drug: morphine 2 mg Route: IVP; Site: left jugular; al4 03:05 Follow up: Response: No adverse reaction; RASS: Alert and Calm (0) al4 Disposition Summary: 06/03/21 21:29 Hospitalization Ordered Hospitalization Status: Inpatient Admission terry Provider: Vic Mejia cha [facility] Condition: Fair terry Problem: new terry Symptoms: have improved terry Bed/Room Type: Standard terry Room Assignment: 204(06/04/21 00:48) cg Diagnosis - Venous insufficiency (chronic) (peripheral) terry - Cellulitis of other parts of limb - bilateral lower extremties, bilateral feet terry Forms: - Medication Reconciliation Form terry - SBAR form terry Signatures: Dispatcher [employer] Bryce Bush MD MD cha Ballard, Brenda, RN RN Bhavani Diaz RN RN cg Ledbetter, Alexis al4 Jessica Camarillo PA PA sb3 Corrections: (The following items were deleted from the chart) 00:48 06/03 21:29 terry cg
--- NOTE | 2021-06-03 21:30 | ER ---
Nurse's Notes [facility] Name: Jami Woodruff Age: 80 yrs Sex: Female : 1940 Arrival Date: 06/03/2021 Time: 20:54 Bed 5 Private MD: Diagnosis: Venous insufficiency (chronic) (peripheral);Cellulitis of other parts of limb-bilateral lower extremties, bilateral feet Presentation: 06/03 21:02 Chief complaint: EMS states: they were toned out for report of pt with stain to sock bb possible bleeding pt was seen by wound care yesterday and had dressing changed kevin wrap does not have a stain. Coronavirus screen: At this time, the client does not indicate any symptoms associated with coronavirus-19. Ebola Screen: No symptoms or risks identified at this time. Initial Sepsis Screen: Does the patient meet any 2 criteria? No. Patient's initial sepsis screen is negative. Does the patient have a suspected source of infection? No. Patient's initial sepsis screen is negative. Risk Assessment: Do you want to hurt yourself or someone else? Patient reports no desire to harm self or others. Onset of symptoms was June 03, 2021. 21:02 Method Of Arrival: EMS: [facility] bb 21:02 Acuity: MARTIR 5 bb Historical: - Allergies: 21:04 No Known Allergies; bb - Home Meds: 21:04 Tylenol-Codeine #4 300-60 mg Oral tab daily [Active]; clopidogrel 75 mg Oral tab bb [Active]; hydrochlorothiazide 12.5 mg Oral cap [Active]; Myrbetriq 50 mg Oral Tb24 1 tab once daily [Active]; Santyl 250 unit/gram Topical oint [Active]; Zofran Oral [Active]; - PMHx: 21:04 venous insufficiency; bb - Immunization history:: Adult Immunizations up to date. - Social history:: Smoking status: unknown. - Family history:: not pertinent. Screenin/06 00:03 Abuse screen: Denies threats or abuse. Nutritional screening: No deficits noted. al4 Tuberculosis screening: No symptoms or risk factors identified. 01:39 Fall Risk No fall in past 12 months (0 pts). IV access (20 points). Ambulatory Aid- al4 Furniture (30 pts.). Gait- Impaired (20 pts.). Mental Status- Overestimates/Forgets Limitations (15 pts.). Total Acuna Fall Scale indicates High Risk Score (45 or more points). Fall prevention measures have been instituted. Side Rails Up X 2. Assessment: 06/03 22:44 Reassessment: lab called to come draw labs. al4 22:45 General: Appears in no apparent distress. uncomfortable, Behavior is calm, cooperative. al4 Neuro: Level of Consciousness is awake, alert, obeys commands, Oriented to person, situation. Cardiovascular: Capillary refill < 3 seconds Patient's skin is warm and dry. Respiratory: Airway is patent Respiratory effort is unlabored, Respiratory pattern is regular. 22:45 Pain: Complains of pain in left foot and right foot and left leg and right leg. Derm: al4 Wound noted left foot and right foot and left leg and right leg Wound is open, oozing, bleeding BL LL Reports pain. 23:30 Reassessment: Patient appears in no apparent distress at this time. Patient and/or al4 family updated on plan of care and expected duration. Pain level reassessed. Patient is awake and alert. 06/04 00:00 Reassessment: Patient and/or family updated on plan of care and expected duration. Pain al4 level reassessed. 00:30 Reassessment: Patients IV quit working. notified of need for EJ. Antibiotics and al4 Fluids on hold waiting for access. 01:39 Reassessment: Antibiotics and NS restarted. al4 01:41 Reassessment: patient assisted to BSC. patient overestimates strength in legs. al4 02:19 Reassessment: Patient appears in no apparent distress at this time. Patient and/or al4 family updated on plan of care and expected duration. Pain level reassessed. 02:33 Reassessment: patient is c/o pain in right foot. pain medication given as ordered. al4 02:34 Reassessment: Krystal Camarillo gave permission for patient to have a sandwich and water. al4 food and drink given. 02:35 Reassessment: Patient is alert, oriented x 3, equal unlabored respirations, skin al4 warm/dry/pink. Vital Signs: 06/03 21:02 BP 129 / 72; Pulse 89; Resp 16 S; Pulse Ox 95% on R/A; Weight 67.59 kg (R); Height 5 bb ft. 8 in. (172.72 cm) (R); 21:45 BP 124 / 71; Pulse 89; Resp 16; Pulse Ox 100% on R/A; al4 22:45 BP 119 / 55; Pulse 69; Resp 17; Pulse Ox 100% on R/A; al4 23:15 BP 134 / 64; Pulse 86; Resp 16 S; Pulse Ox 100% on R/A; al4 06/04 02:31 BP 112 / 56; Pulse 90; Resp 17; Pulse Ox 100% on R/A; al4 02:49 BP 116 / 56; Pulse 89; Resp 17; Pulse Ox 99% ; al4 06/03 21:02 Body Mass Index 22.66 (67.59 kg, 172.72 cm) ED Course: 06/03 20:54 Patient arrived in ED. mw2 21:04 Triage completed. bb 21:04 Arm band placed on Patient placed in an exam room, on a stretcher, on pulse oximetry. bb 21:05 Bryce Perez MD is Attending Physician. terry 21:28 Vic Mejia MD is Hospitalizing Provider. terry 21:58 XRAY Chest (1 view) In Process Unspecified. EDMS 21:58 Foot Left 3 View XRAY In Process Unspecified. EDMS 21:58 Foot Right 3 View XRAY In Process Unspecified. EDMS 22:44 Jaquan Ross is Primary Nurse. al4 22:45 Missed attempt(s): 20 gauge in right forearm. Bleeding controlled, band aid applied, al4 catheter tip intact. 23:50 Inserted saline lock: 22 gauge in left antecubital area, using aseptic technique. 06/04 00:03 Patient has correct armband on for positive identification. Bed in low position. al4 01:49 No provider procedures requiring assistance completed. Patient admitted, IV remains in al4 place. Administered Medications: 06/03 23:08 Drug: Tetanus-Diphtheria Toxoid Adult 0.5 ml {Ammonia Box Tender: [employer]. Exp: al4 05/10/2023. Lot #: [id number]. } Route: IM; Site: right deltoid; 06/04 01:28 Follow up: Response: No adverse reaction al4 00:00 Drug: Zosyn (piperacillin-tazobactam) 3.375 grams Route: IVPB; Infused Over: 60 mins; al4 Site: left antecubital; 03:05 Follow up: IV Status: Completed infusion al4 00:00 Drug: NS 0.9% 1000 ml Route: IV; Rate: 125 ml/hr; Site: left antecubital; al4 02:30 Drug: Zofran (Ondansetron) 4 mg Route: IVP; Site: left jugular; al4 03:05 Follow up: Response: No adverse reaction al4 02:31 Drug: morphine 2 mg Route: IVP; Site: left jugular; al4 03:05 Follow up: Response: No adverse reaction; RASS: Alert and Calm (0) al4 Outcome: 06/03 21:29 Decision to Hospitalize by Provider. terry 06/04 01:50 Admitted to Med/surg Report called to GARRETT Davenport al4 Condition: stable Instructed on the need for admit, Demonstrated understanding of instructions. 03:11 Patient left the ED. al4 Signatures: Dispatcher [employer] EDMS Bryce Perez MD MD cha Ballard, Brenda, RN RN Edmar Mathur 2 Jaquan Ross al4 Corrections: (The following items were deleted from the chart) 01:29 06/03 23:30 Reassessment: Patient appears in no apparent distress at this time. Patient al4 is awake and alert. al4 06/04 01:44 04 22:45 Neuro: Level of Consciousness is awake, alert, obeys commands, Oriented to al4 person, place, time, al4
--- NOTE | 2021-06-03 22:07 | RAD REPORT ---
EXAM DESCRIPTION: RAD - Chest Single View - 06/03/2021 9:56 pm CLINICAL HISTORY: COUGH Chest pain. COMPARISON: Chest Single View dated 05/29/2021; Chest Pa And Lat (2 Views) dated 02/04/2021 FINDINGS: Portable technique limits examination quality. The lungs are grossly clear. The heart is normal in size. No displaced fractures. IMPRESSION: No acute intrathoracic process suspected.
--- NOTE | 2021-06-03 22:08 | RAD REPORT ---
EXAM DESCRIPTION: RAD - Foot Left 3 View - 06/03/2021 9:56 pm CLINICAL HISTORY: PAIN COMPARISON: Foot Left 3 View dated 06/02/2021 FINDINGS: Soft tissue swelling is seen along the dorsum of the forefoot with mild soft tissue ulcera tion. The bones are diffusely osteopenic. No fracture seen. Small calcaneal spurs. No radiographic ev idence of osteomyelitis seen.
--- NOTE | 2021-06-03 22:09 | RAD REPORT ---
EXAM DESCRIPTION: RAD - Foot Right 3 View - 06/03/2021 9:56 pm CLINICAL HISTORY: PAIN COMPARISON: Foot Right 3 View dated 01/29/2021 FINDINGS: Diffuse osteopenia is noted. Moderate calcaneal spur is seen. Extensive ankle hardware is in place. 2 screws are present medial ankle which are not fully flush with the bone. Soft tissue swel ling with focal soft tissue ulceration is noted adjacent to the more anterior screw. No osteomyelitis evident.
[2021-06-03] MEDS ORDERED: NA CHLORIDE 0.9% 1,000 ML ONE (22:59)
[2021-06-03] MEDS ORDERED: PIPERACIL/TAZO 3.375 GM VIAL IV ONE (22:59)
[2021-06-03] MEDS ORDERED: NA CHLORIDE 0.9% 100 ML IV ONE (22:59)
[2021-06-03] MEDS ORDERED: TETANUS & DIPHTHERIA TOX,ADULT 0.5 ML VIAL ONE (22:59)
[2021-06-03 23:09] LABS: Absolute Lymphocytes (CBC) 1.7 K/uL (0.7-4.9); Hematocrit 28.9 % (36.0-45.0); Lymphocytes % 32.4 % (15.3-44.8); MPV 6.6 fL (7.6-11.3); RBC Red Blood Cell Count 3.27 M/uL (3.86-4.86)
[2021-06-03 23:10] LABS: Protime INR 1.16
[2021-06-03 23:20] LABS: Bilirubin Direct 0.2 mg/dL (0-0.2); Bilirubin Total 0.4 mg/dL (0.2-1.0); Magnesium 1.8 mg/dL (1.8-2.4); Potassium 3.5 mmol/L (3.5-5.1); Protein, Total 6.6 g/dL (6.4-8.2); Troponin High Sensitivity 7.8 pg/mL (<58.9)
[2021-06-04] MEDS ORDERED: ONDANSETRON 4 MG/2 ML VIAL ONE (00:11)
[2021-06-04] MEDS ORDERED: MORPHINE 2 MG/ML SYR ONE (00:11)
--- NOTE | 2021-06-04 00:17 | P.HP ---
Certification for Inpatient Patient admitted to: Inpatient With expected LOS: <2 Midnights Patient will require the following post-hospital care: None Practitioner: I am a practitioner with admitting privileges, knowledge of patient current condition, hospital course, and medical plan of care. Services: Services provided to patient in accordance with Admission requirements found in Title 42 Section 412.3 of the Code of Federal Regulations <Jessica Camarillo - Last Filed: 06/04/21 00:39> Patient History Date of Service: 06/04/21 Primary Care Provider: Dr. Lowe Reason for admission: BLE Cellulitus History of Present Illness: Patient is a 80-year-old female with venous insufficiency and chronic venous stasis ulcers of bilateral lower extremities who presented to the ED via EMS who stated that they were toned out for report of patient with possible bleeding/oozing of her wounds. However EMS stated that there was no evidence of that. Patient was seen by wound care yesterday and had her dressing changed. In the ED, wounds appear erythematous and infected. X-rays did not show any willi dence of osteomyelitis. WBC within normal limits. Other labs significant for creatinine 1.39 (unsure of baseline), hemoglobin 10 calcium 8.2, AST 62, alk phos 138, BNP 735. Patient does have a history of memory loss/dementia and she is slightly confused in the ED. She does not understand why she is being admitted to the hospital however explained to her multiple times. She received a Tdap shot, normal saline, and Zosyn in the ED. Will admit for further evaluation and treatment. Home medications list reviewed: Yes - Past Medical/Surgical History Diabetic: No -: Overactive Bladder -: Lymphedema -: Depression -: Venous Insufficiency -: Appendectomy -: Cholecystectomy Psychosocial/ Personal History: Patient lives at [facility]. - Family History Sister -: Diabetes - Social History Smoking Status: Never smoker Alcohol use: No CD- Drugs: No Caffeine use: Yes [facility] <Jessica Camarillo - Last Filed: 06/04/21 00:39> Date of Service: 06/04/21 <Vci Mejia - Last Filed: 06/07/21 16:35> Allergies No Known Allergies Allergy (Verified 06/04/21 03:58) Home Medications: Acetaminophen 500 mg PO Q6HP PRN 04/14/21 Ascorbic Acid [Vitamin C] 500 mg PO DAILY 04/14/21 Cholecalciferol (Vitamin D3) [Vitamin D3] 25 mcg PO DAILY 04/14/21 Mirabegron [Myrbetriq] 50 mg PO DAILY 04/14/21 Naproxen Sodium 220 mg PO Q12HP PRN 04/14/21 Zinc Sulfate 50 mg PO DAILY 04/14/21 Review of Systems 10-point ROS is otherwise unremarkable Musculoskeletal: Leg Pain <Jessica Camarillo - Last Filed: 06/04/21 00:39> Physical Examination - Physical Exam General: Alert, In no apparent distress, Confused HEENT: Atraumatic, PERRLA, Mucous membr. moist/pink, EOMI, Sclerae nonicteric Neck: Supple, 2+ carotid pulse no bruit, No LAD, Without JVD or thyroid abnormality Respiratory: Clear to auscultation bilaterally, Normal air movement Cardiovascular: Regular rate/rhythm, Normal S1 S2 Gastrointestinal: Normal bowel sounds, No tenderness Musculoskeletal: No tenderness Integumentary: Warmth, Venous stasis ulcer Neurological: Normal speech, Normal strength at 5/5 x4 extr, Normal tone, Normal affect - Studies Laboratory Data (last 24 hrs) 06/03/21 22:50: PT 12.8 H, INR 1.16 06/03/21 22:50: WBC 5.3, Hgb 10.0 L, Hct 28.9 L, Plt Count 195 06/03/21 22:50: Sodium 138, Potassium 3.5, BUN 30 H, Creatinine 1.39 H, Glucose 102, Magnesium 1.8, Total Bilirubin 0.4, AST 62 H, ALT 35, Alkaline Phosphatase 138 H <Jessica Camarillo - Last Filed: 06/04/21 00:39> - Studies Microbiology Data (last 24 hrs): 06/03/21 23:00 Wound - Left Foot Gram Stain - Final 06/03/21 23:00 Wound - Left Foot Culture & Sensitivity - Final Meth Resistant Staph Aureus Citrobacter Freundii Complex <Vic Mejia - Last Filed: 06/07/21 16:35> Assessment and Plan - Problems (Diagnosis) (1) Dementia Current Visit: Yes Status: Acute Qualifiers: Dementia type: unspecified type Dementia behavioral disturbance: without behavioral disturbance Qualified Code(s): F03.90 - Unspecified dementia without behavioral disturbance (2) Chronic venous hypertension (idiopathic) with ulcer of left lower extremity Current Visit: Yes Status: Chronic (3) Chronic venous hypertension (idiopathic) with ulcer of right lower extremity Current Visit: Yes Status: Chronic (4) Lymphedema Current Visit: Yes Status: Chronic - Plan -wounds appear to be somewhat infected. Wound culture has been sent. WBC within normal limits. Patient is not showing any signs of systemic infection. Received 1 dose of Zosyn in the ED. -Unsure of patient's baseline kidney function but creatinine is elevated at 1.39. We will continue gentle IV hydration and to monitor renal function -X-rays did not show signs of osteomyelitis. Consider MRI if worsening signs of infection. Patient will require wound care consult. Wet-to-dry dressings recommended by ED provider. -Patient's liver enzymes are slightly elevated. Will monitor. -Reconcile continue home medications DVT PPx: Lovenox Code: Full Discharge Plan: [facility] Plan to discharge in: Greater than 2 days - Advance Directives Does patient have a Living Will: No Does patient have a Durable POA for Healthcare: No - Code Status/Comfort Care Code Status Assessed: Yes (Full) Critical Care: No Time Spent Managing Pts Care (In Minutes): 70 <Jessica Camarillo - Last Filed: 06/04/21 00:39> - Problems (Diagnosis) (1) Osteomyelitis Current Visit: Yes Status: Acute (2) Exposed orthopaedic hardware Current Visit: Yes Status: Acute (3) Chronic venous hypertension (idiopathic) with ulcer of left lower extremity Current Visit: Yes Status: Chronic (4) Chronic venous hypertension (idiopathic) with ulcer of right lower extremity Current Visit: Yes Status: Chronic (5) Open wound of right foot with complication Current Visit: No Status: Ruled-out <Vic Mejia - Last Filed: 06/07/21 16:35> Date of Service: 06/04/21 Subjective: HPI as mentioned above Physical Examination: Vitals: Afebrile vital signs are stable Physical exam: Cardiovascular: Within normal limits. Lungs: Within normal limits Abdomen: Within normal limits Neuro: Awake, alert, oriented to person place and time Assessment: 1. Questionable osteomyelitis Plan: 1. Continue with current plan of care as mentioned above <Vic Mejia - Last Filed: 06/07/21 16:35>
[2021-06-04] MEDS ORDERED: ZOLPIDEM TARTRATE 5 MG TABLET PO PRN (02:21)
[2021-06-04] MEDS ORDERED: ONDANSETRON 4 MG/2 ML VIAL IV PRN (02:21)
[2021-06-04 04:14] VITALS: BMI 25.1
[2021-06-04 04:56] LABS: Absolute Lymphocytes (CBC) 1.2 K/uL (0.7-4.9); Hematocrit 26.8 % (36.0-45.0); Lymphocytes % 26.9 % (15.3-44.8); MPV 6.8 fL (7.6-11.3); RBC Red Blood Cell Count 2.97 M/uL (3.86-4.86)
[2021-06-04 05:18] LABS: Albumin 1.7 g/dL (3.4-5.0); Bilirubin Total 0.5 mg/dL (0.2-1.0); Protein, Total 5.7 g/dL (6.4-8.2); Thyroid Stimulating Hormone 2.21 uIU/mL (0.360-3.740)
--- NOTE | 2021-06-04 07:10 | EKG ---
Test Date: 2021-06-03 Test Time: 23:17:18 Hospitality Associate: KP MEASUREMENT RESULTS: Intervals: Rate: 91 KS: 168 QRSD: 84 QT: 392 QTc: 482 [place]: P: 64 KS: 168 QRS: 23 T: 55 INTERPRETIVE STATEMENTS: Normal sinus rhythm Normal ECG Compared to ECG 05/29/2021 20:20:30 Atrial premature complex(es) no longer present Myocardial infarct finding no longer present Electronically Signed On 06-04-21 07:09:25 CDT by Toni Madera
[2021-06-04] MEDS ORDERED: PNEUMOCOCCAL VACCINE 0.5 ML IMVAC ONE (08:00)
[2021-06-04] MEDS: ACETAMINOPHEN 500 MG TAB PO PRN ×2 (08:14→20:02)
[2021-06-04] MEDS: ENOXAPARIN 40 MG/0.4 ML SQ SCH (08:14)
[2021-06-04] MEDS: CALCIUM CARB 500MG/VIT D 200 IU TAB PO SCH ×2 (08:15→20:02)
[2021-06-05 05:30] LABS: Absolute Lymphocytes (CBC) 1.4 K/uL (0.7-4.9); Hematocrit 26.6 % (36.0-45.0); MPV 6.7 fL (7.6-11.3); RBC Red Blood Cell Count 2.93 M/uL (3.86-4.86)
[2021-06-05 06:02] LABS: Albumin 1.6 g/dL (3.4-5.0); Bilirubin Total 0.5 mg/dL (0.2-1.0); Potassium 3.2 mmol/L (3.5-5.1); Protein, Total 5.8 g/dL (6.4-8.2)
[2021-06-05] MEDS: CALCIUM CARB 500MG/VIT D 200 IU TAB PO SCH ×2 (08:59→20:18)
[2021-06-05] MEDS: ENOXAPARIN 40 MG/0.4 ML SQ SCH (08:59)
[2021-06-05] MEDS ORDERED: POTASSIUM CL SA 10 MEQ TAB PO ONE ×2 (09:00→21:00)
[2021-06-05 12:01] LABS: Urine Appearance CLOUDY (Clear); Urine Bilirubin NEGATIVE (Negative); Urine Blood 3+ (Negative); Urine Color DK YELLOW (Yellow); Urine Glucose NEGATIVE (Negative); Urine Protein 2+ (Negative); Urine Specific Gravity 1.015 (1.005-1.030); Urine Urobilinogen 0.2 mg/dL (0.2-1.0)
[2021-06-05 12:11] LABS: Urine Microscopic Reflex ORDER UMIC
[2021-06-05 12:26] LABS: Urine Bacteria 20-50 /HPF (<20); Urine RBC >50 /HPF (NONE SEEN)
[2021-06-05] MEDS: ACETAMINOPHEN 500 MG TAB PO PRN (12:41)
[2021-06-05] MEDS: COLLAGENASE 30 GM OINTMENT TOP SCH (13:26)
[2021-06-05] MEDS: MORPHINE 2 MG/ML SYR IV PRN ×2 (14:22→21:48)
[2021-06-06] MEDS: MORPHINE 2 MG/ML SYR IV PRN ×2 (03:31→18:32)
[2021-06-06 03:45] LABS: Absolute Lymphocytes (CBC) 1.2 K/uL (0.7-4.9); Hematocrit 27.7 % (36.0-45.0); RBC Red Blood Cell Count 3.04 M/uL (3.86-4.86)
[2021-06-06 03:58] LABS: Albumin 1.6 g/dL (3.4-5.0); Bilirubin Total 0.3 mg/dL (0.2-1.0); Potassium 3.9 mmol/L (3.5-5.1)
[2021-06-06] MEDS ORDERED: ALBUMIN HUMAN 25% 50 ML IV ONE (08:05)
[2021-06-06] MEDS: ENOXAPARIN 40 MG/0.4 ML SQ SCH (09:00)
[2021-06-06] MEDS ORDERED: POTASSIUM CL SA 10 MEQ TAB PO ONE (09:00)
[2021-06-06] MEDS: VANCOMYCIN 1.25 GM in NA CHLORIDE 0.9% 250 ML IVPB SCH (10:14)
[2021-06-06] MEDS: CALCIUM CARB 500MG/VIT D 200 IU TAB PO SCH ×2 (10:16→22:46)
[2021-06-06] MEDS: COLLAGENASE 30 GM OINTMENT TOP SCH (10:17)
--- NOTE | 2021-06-06 14:17 | P.PN ---
Subjective Date of Service: 06/05/21 Patient is a 72-year-old female who came to the hospital with venous insufficiency ulcers bilaterally. The ulcer on her right foot was opened and tendons and bone is exposed. Patient also has a screw that is protruding out of the tissue. Patient with osteomyelitis. She will need IV antibiotic therapy for minimal 6 weeks along with aggressive wound care. She will probably need a skin graft once this is completed healing. If it does not heal completely she is at high risk for amputation. Review of Systems 10-point ROS is otherwise unremarkable Physical Examination - Vital Signs Temperature: 98.4 F Blood Pressure: 113/56 Pulse: 75 Respirations: 16 Pulse Ox (%): 100 - Physical Exam General: Alert, In no apparent distress, Oriented x3 Respiratory: Clear to auscultation bilaterally, Normal air movement Cardiovascular: Regular rate/rhythm, Normal S1 S2 Gastrointestinal: Normal bowel sounds, Soft and benign, Non-distended, No tenderness Integumentary: Skin breakdown, Tenderness/swelling, Erythema, Warmth, Pressure ulcer, Venous stasis ulcer Neurological: Sensation intact, Cranial nerves 3-12 intact - Studies Microbiology Data (last 24 hrs): 06/03/21 23:00 Wound - Left Foot Gram Stain - Final Medications List Reviewed: Yes Assessment & Plan - Problems (Diagnosis) (1) Osteomyelitis Current Visit: Yes Status: Acute (2) Exposed orthopaedic hardware Current Visit: Yes Status: Acute (3) Chronic venous hypertension (idiopathic) with ulcer of left lower extremity Current Visit: Yes Status: Chronic (4) Chronic venous hypertension (idiopathic) with ulcer of right lower extremity Current Visit: Yes Status: Chronic (5) Open wound of right foot with complication Current Visit: No Status: Ruled-out - Plan PLAN: 1. Continue with IV antibiotic x 6 weeks 2. Continue with local wound care 3. Wound care consultation/surgical consultation 4. Gentle IV hydration 5. Monitor CBC 6. Strict blood sugar monitoring 7. Pain control 8. GI and DVT prophylaxis Discharge Plan: Home Plan to discharge in: Greater than 2 days - Advance Directives Does patient have a Living Will: No Does patient have a Durable POA for Healthcare: No - Code Status/Comfort Care Code Status Assessed: Yes Code Status: Full Code Critical Care: No Time Spent Managing PTS Care (In Minutes): 40
--- NOTE | 2021-06-06 14:18 | P.PN ---
Date of Service: 06/06/21 Subjective Wound still draining and extremely painful Review of Systems 10-point ROS is otherwise unremarkable Physical Examination - Vital Signs reviewed - Physical Exam General: Alert, In no apparent distress, Oriented x3 Respiratory: Clear to auscultation bilaterally, Normal air movement Cardiovascular: Regular rate/rhythm, Normal S1 S2 Gastrointestinal: Normal bowel sounds, Soft and benign, Non-distended, No tenderness Integumentary: Skin breakdown, Tenderness/swelling, Erythema, Warmth, Pressure ulcer, Venous stasis ulcer; exposed tendons and bone; screw exposure Neurological: Sensation intact, Cranial nerves 3-12 intact Assessment & Plan - Problems (Diagnosis) (1) Osteomyelitis Current Visit: Yes Status: Acute (2) Exposed orthopaedic hardware Current Visit: Yes Status: Acute (3) Chronic venous hypertension (idiopathic) with ulcer of left lower extremity Current Visit: Yes Status: Chronic (4) Chronic venous hypertension (idiopathic) with ulcer of right lower extremity Current Visit: Yes Status: Chronic (5) Open wound of right foot with complication Current Visit: No Status: Ruled-out - Plan PLAN: 1. Continue with IV antibiotic x 6 weeks 2. Continue with local wound care 3. Wound care consultation/surgical consultation/orthopedic consult 4. Gentle IV hydration 5. Monitor CBC 6. Strict blood sugar monitoring 7. Pain control 8. GI and DVT prophylaxis Discharge Plan: Home Plan to discharge in: Greater than 2 days - Advance Directives Does patient have a Living Will: No Does patient have a Durable POA for Healthcare: No - Code Status/Comfort Care Code Status Assessed: Yes Code Status: Full Code Critical Care: No Time Spent Managing PTS Care (In Minutes): 40
[2021-06-07 04:20] LABS: Albumin 1.6 g/dL (3.4-5.0); Bilirubin Total 0.3 mg/dL (0.2-1.0); Potassium 3.9 mmol/L (3.5-5.1); Protein, Total 5.5 g/dL (6.4-8.2)
[2021-06-07] MEDS: ENOXAPARIN 30 MG/0.3 ML SQ SCH (08:57)
[2021-06-07] MEDS: CALCIUM CARB 500MG/VIT D 200 IU TAB PO SCH ×2 (08:57→20:20)
[2021-06-07] MEDS: COLLAGENASE 30 GM OINTMENT TOP SCH (08:57)
[2021-06-07] MEDS: MORPHINE 2 MG/ML SYR IV PRN ×2 (11:27→16:24)
--- NOTE | 2021-06-07 14:03 | CON ---
Date of Consultation: 06/07/2021 Brief History Of Present Illness: The patient is a 80-year-old female with a history of ve nous insufficiency, chronic venous stasis ulcers of bilateral lower extremities, who presented to the ER via EMS with complaints that she had bleeding/worsening and oozing of her bilateral lower extremi ty venous stasis wounds. She was brought to the hospital with the above-stated issue, and I am consu lted for the above-stated issue. She has had surgical repair with hardware placement of a right ankl e before in the past for fractures apparently. Past Medical History: Significant for overactive bladder, lymphedema, depression, venous insufficien cy. Past Surgical History: Includes an appendectomy, cholecystectomy, and repair of right foot and ankle fracture. Allergies: NO KNOWN DRUG ALLERGIES. Home Medications: Include Tylenol, vitamin C, vitamin D, Myrbetriq, Naprosyn, zinc sulfate. Social History: She denies smoking, alcohol, or recreational drug use. She lives in a retirement currently. Review of Systems: 10-point review of systems other than HPI, she complains of bilateral lower extremity pain, tendernes s, burning in her wounds which were predominantly over the bilateral lower extremities. There are mu ltiple wounds of her lower extremities. They have been tender and burning by her report. Physical Examination: Vital Signs: At the time of my examination, her blood pressure was 118/57, respiratory rate was 16, heart rate 88, temperature 97.9. Her pain level was 5. SpO2 98% on room air. GENERAL: She is awake, alert, and oriented. PSYCHIATRIC: She is appropriately conversive. HEENT: She is normocephalic. Sclerae are icteric. Mucous membranes are moist. Oropharynx clear. Neck: Supple without JVD. Chest: Expansion excursion. Cardiovascular: Regular rate and rhythm. Pulmonary: Clear to auscultation bilaterally. Abdomen: Soft, nontender, nondistended. Pelvis: Stable. Extremities: Focused examination of the bilateral lower extremities, she has multiple venous stasis ulcers in the calf area as well as anterior tibial area. Both dorsal aspects of the foot have bilate ral wounds. The left has a large necrotic wound with exposed tendon. Significant necrosis is eviden t here. She has exposed hardware on the medial ankle of the right foot near the malleolus. These wo unds all appear infected, and there is surrounding cellulitis and edema surrounding these areas. Laboratory Data: She had a laboratory exam which revealed a white blood cell count of 4.6, hemoglobi n 9.3, hematocrit 27.7, platelet count was 181. Neutrophils were 63%. Her sodium 142, potassium 3.9 , chloride 111, carbon dioxide 29, BUN 32, creatinine 1.16, glucose was 101. She had imaging perform ed which included x-rays of her bilateral lower extremities, officially read as left foot three-view x-ray showed soft tissue swelling along the dorsum of the forefoot with mild soft tissue ulceration. The bones are diffusely osteopenic. No fracture seen. Small calcaneal spur. There is no radiologi c evidence of osteomyelitis seen. She additionally had an x-ray of the right foot, three-view, which was officially read as diffuse osteopenia is noted, moderate calcaneal spur, extensive ankle hardwar e is in place. Two screws are present medial ankle which are not fully flush with the bone. Soft ti ssue swelling with focal soft tissue ulceration is noted adjacent to the more anterior screw. No ost eomyelitis is seen. Assessment And Plan: This is a 80-year-old female who comes in with venous stasis ulcers and necroti c wounds of bilateral lower extremities. 1.Medical management. 2.Antibiotic coverage with vancomycin. 3.The patient is in need of debridement of these obviously infected wounds with necrosis. 4.I have recommended Orthopedic Surgery consultation as her right ankle appears to have infected [place] dware. 5.I recommend surgical debridement of her soft tissue wounds in the interim of the left lower extrem ity, and we will attempt to consult Orthopedic Surgery. However, if none is available, we will likel y proceed with surgery on the affected areas not involving the affected hardware and as such we will await consultation from Orthopedic Surgery or discuss timing with Orthopedic Surgery to see if we can proceed at the same time to subject the patient to only one anesthesia time. Additionally, I will o rder a duplex venous ultrasound of bilateral lower extremities. 6.Continue wound care currently with Hydrofera Blue wraps until surgical debridement is performed, w raps elevation required and pressure reduction strategies in addition. I have explained the risks, b enefits, and alternatives of the above-stated plan. The patient agrees to proceed as indicated. TK/SANJIV Voice ID: [id number] Report ID: [id number]
--- NOTE | 2021-06-07 16:34 | P.PN ---
Date of Service: 06/07/21 Subjective Spoke with general surgery and they will debride on Wednesday.-Orthopedic can evaluate on Wednesday and remove hardware if needed. Continue with IV antibiotic therapy. Arrange for placement. Patient will need prolonged IV antibiotic and wound care along with therapy. Infectious disease consulted as well. Review of Systems 10-point ROS is otherwise unremarkable Physical Examination - Vital Signs reviewed - Physical Exam General: Alert, In no apparent distress, Oriented x3 Respiratory: Clear to auscultation bilaterally, Normal air movement Cardiovascular: Regular rate/rhythm, Normal S1 S2 Gastrointestinal: Normal bowel sounds, Soft and benign, Non-distended, No tenderness Integumentary: Skin breakdown, Tenderness/swelling, Erythema, Warmth, Pressure ulcer, Venous stasis ulcer; exposed tendons and bone; screw exposure Neurological: Sensation intact, Cranial nerves 3-12 intact Assessment & Plan - Problems (Diagnosis) (1) Osteomyelitis Current Visit: Yes Status: Acute (2) Exposed orthopaedic hardware Current Visit: Yes Status: Acute (3) Chronic venous hypertension (idiopathic) with ulcer of left lower extremity Current Visit: Yes Status: Chronic (4) Chronic venous hypertension (idiopathic) with ulcer of right lower extremity Current Visit: Yes Status: Chronic (5) Open wound of right foot with complication Current Visit: No Status: Ruled-out - Plan PLAN: 1. Continue with IV antibiotic x 6 weeks 2. Continue with local wound care 3. Wound care consultation/surgical consultation/orthopedic consult to remove hardware-plan to go to operating room on Wednesday 4. Hep-Lock IV 5. Monitor labs closely 6. Strict blood sugar monitoring 7. Pain control 8. GI and DVT prophylaxis Discharge Plan: Home Plan to discharge in: Greater than 2 days - Advance Directives Does patient have a Living Will: No Does patient have a Durable POA for Healthcare: No - Code Status/Comfort Care Code Status Assessed: Yes Code Status: Full Code Critical Care: No Time Spent Managing PTS Care (In Minutes): 40
[2021-06-07] MEDS ORDERED: TRAMADOL HCL 50 MG TAB PO ONE (20:44)
[2021-06-07] MEDS ORDERED: SODIUM HYPOCHLORITE 0.25% 473 ML TOP SCH (21:00)
[2021-06-07] MEDS: VANCOMYCIN 1.25 GM in NA CHLORIDE 0.9% 250 ML IVPB SCH (21:16)
--- NOTE | 2021-06-07 22:03 | RAD REPORT ---
EXAM DESCRIPTION: USExtrem Venous W Compress Bil06/07/2021 9:48 pm CLINICAL HISTORY: Leg swelling COMPARISON: April 2021 FINDINGS: The common femoral, superficial femoral and popliteal veins bilaterally are compressible a nd demonstrate augmentation. Posterior tibial veins were not imaged due to overlying dressings Doppler demonstrates good flow. IMPRESSION: No evidence of deep venous thrombosis involving either lower extremity.
[2021-06-08] MEDS: ENOXAPARIN 30 MG/0.3 ML SQ SCH (08:26)
[2021-06-08] MEDS: SODIUM HYPOCHLORITE 0.125% TOP SCH (08:26)
[2021-06-08] MEDS: COLLAGENASE 30 GM OINTMENT TOP SCH (08:26)
[2021-06-08] MEDS: CALCIUM CARB 500MG/VIT D 200 IU TAB PO SCH ×2 (08:26→22:13)
--- NOTE | 2021-06-08 12:15 | P.PN ---
Subjective Date of Service: 06/08/21 Primary Care Provider: Dr. Lowe Chief Complaint: BLE Cellulitus Subjective: No new changes (Patient feels well.) Physical Examination - Vital Signs Temperature: 97.6 F Blood Pressure: 106/57 Pulse: 75 Respirations: 16 Pulse Ox (%): 94 - Physical Exam General: Alert, In no apparent distress, Cooperative Integumentary: Other (Bilateral lower extremity necrotic wound are unchanged.) - Studies Microbiology Data (last 24 hrs): 06/03/21 23:00 Wound - Left Foot Gram Stain - Final 06/03/21 23:00 Wound - Left Foot Culture & Sensitivity - Final Meth Resistant Staph Aureus Citrobacter Freundii Complex Medications List Reviewed: Yes Assessment And Plan - Current Problems (Diagnosis) (1) Venous stasis ulcer limited to breakdown of skin without varicose veins Current Visit: Yes Status: Acute Plan: Bilateral lower extremity venous stasis ulcers - continue antibiotics - continue local wound care - I have recommeded surgical debridment of bilateral lower extremity wounds and await orthopedic surgery consult for exposed RIGHT Lower extremity hardware - continue medical management (2) Exposed orthopaedic hardware Current Visit: Yes Status: Acute
[2021-06-08] MEDS: MORPHINE 2 MG/ML SYR IV PRN (13:12)
[2021-06-08] MEDS: VANCOMYCIN 1.25 GM in NA CHLORIDE 0.9% 250 ML IVPB SCH (22:14)
--- NOTE | 2021-06-09 04:22 | P.PN ---
Date of Service: 06/08/21 Subjective Patient scheduled to get wound debridement tomorrow; however, decided to be put on hold because patient has screws that are exposed and these will need to be removed on Wednesday. Patient will be seen by Dr. Covington for consultation. Dr. Adame will do the debridement of the wounds on the foot. Continue with wound care arrange for outpatient IV antibiotics with retirement facility placement ; Review of Systems 10-point ROS is otherwise unremarkable Physical Examination - Vital Signs reviewed - Physical Exam General: Alert, In no apparent distress, Oriented x3 Respiratory: Clear to auscultation bilaterally, Normal air movement Cardiovascular: Regular rate/rhythm, Normal S1 S2 Gastrointestinal: Normal bowel sounds, Soft and benign, Non-distended, No tenderness Integumentary: Skin breakdown, Tenderness/swelling, Erythema, Warmth, Pressure ulcer, Venous stasis ulcer; exposed tendons and bone; (R)screw exposure Neurological: Sensation intact, Cranial nerves 3-12 intact Assessment & Plan - Problems (Diagnosis) (1) Osteomyelitis Current Visit: Yes Status: Acute (2) Exposed orthopaedic hardware Current Visit: Yes Status: Acute (3) Chronic venous hypertension (idiopathic) with ulcer of left lower extremity Current Visit: Yes Status: Chronic (4) Chronic venous hypertension (idiopathic) with ulcer of right lower extremity Current Visit: Yes Status: Chronic (5) Open wound of right foot with complication Current Visit: No Status: Ruled-out - Plan Continue with plan of care as mentioned below: 1. Continue with IV antibiotic x 6 weeks 2. Continue with local wound care 3. Wound care consultation/surgical consultation/orthopedic consult pending 4. Diet as tolerated; Hep-Lock IV pending surgery 5. Monitor CBC 6. Strict blood sugar monitoring 7. Pain control 8. GI and DVT prophylaxis Discharge Plan: Home Plan to discharge in: Greater than 2 days - Advance Directives Does patient have a Living Will: No Does patient have a Durable POA for Healthcare: No - Code Status/Comfort Care Code Status Assessed: Yes Code Status: Full Code Critical Care: No Time Spent Managing PTS Care (In Minutes): 40
[2021-06-09 06:12] LABS: Absolute Lymphocytes (CBC) 1.4 K/uL (0.7-4.9); Hematocrit 26.9 % (36.0-45.0); RBC Red Blood Cell Count 2.99 M/uL (3.86-4.86)
[2021-06-09 06:21] LABS: Protime INR 1.1
[2021-06-09 06:27] LABS: Albumin 1.5 g/dL (3.4-5.0); Bilirubin Total 0.4 mg/dL (0.2-1.0); Magnesium 1.8 mg/dL (1.8-2.4); Potassium 3.6 mmol/L (3.5-5.1); Protein, Total 5.6 g/dL (6.4-8.2)
[2021-06-09 07:48] LABS: Blood Morphology Comment NOT SEEN (NOT SEEN); Platelet Estimate ADEQ
[2021-06-09] MEDS ORDERED: KCL 20 MEQ/100 mL IVPB 20 MEQ/100 ML BAG IV SCH (08:00)
[2021-06-09] MEDS: ENOXAPARIN 30 MG/0.3 ML SQ SCH (08:16)
[2021-06-09] MEDS: COLLAGENASE 30 GM OINTMENT TOP SCH ×2 (08:16→10:41)
[2021-06-09] MEDS: CALCIUM CARB 500MG/VIT D 200 IU TAB PO SCH ×2 (08:16→22:01)
[2021-06-09] MEDS: SODIUM HYPOCHLORITE 0.125% TOP SCH (08:16)
--- NOTE | 2021-06-09 08:53 | P.PN ---
Subjective Date of Service: 06/10/21 Primary Care Provider: Dr. Lowe Chief Complaint: BLE Cellulitus Subjective: No new changes Physical Examination - Vital Signs Temperature: 97.6 F Blood Pressure: 111/62 Pulse: 70 Respirations: 16 Pulse Ox (%): 96 - Physical Exam General: Alert HEENT: Atraumatic, Normocephalic Respiratory: Normal air movement Cardiovascular: Regular rate/rhythm, Normal S1 S2 Gastrointestinal: Soft and benign Neurological: Normal speech - Studies Microbiology Data (last 24 hrs): 06/03/21 23:27 Blood - Blood Aerobic Blood Culture - Final No growth in 5 days. 06/03/21 23:27 Blood - Blood Anaerobic Blood Culture - Final 06/03/21 23:38 Blood - Blood Aerobic Blood Culture - Final No growth in 5 days. 06/03/21 23:38 Blood - Blood Anaerobic Blood Culture - Final Medications List Reviewed: Yes Assessment And Plan - Plan Continue with plan of care as mentioned below: 1. Continue with IV antibiotic x 6 weeks 2. Continue with local wound care 3. Wound care consultation/surgical consultation/orthopedic consult pending 4. Diet as tolerated; Hep-Lock IV pending surgery 5. Monitor CBC 6. Strict blood sugar monitoring 7. Pain control 8. GI and DVT prophylaxis
[2021-06-09] MEDS: MORPHINE 2 MG/ML SYR IV PRN ×2 (10:40→16:34)
--- NOTE | 2021-06-09 10:52 | RAD REPORT ---
EXAM DESCRIPTION: NM - Bone Imaging Three Phase - 06/09/2021 10:10 am CLINICAL HISTORY: osteomyelitis COMPARISON: Foot Right 3 View dated 06/03/2021; Foot Left 3 View dated 06/03/2021 TECHNIQUE: The patient was administered 26.8 mCi Tc 99m MDP. Dynamic flow imaging was performed at t he area of interest. Immediate blood pool and 3-4 hour delayed images were obtained. FINDINGS: The blood flow study show increased activity to the feet more pronounced in the distal lef t foot. Delayed imaging shows abnormal activity in the right ankle. The patient does have very extensive surg ical hardware in the distal tibia and fibula. The presence of this hardware can result in chronic act ivity. Additional abnormal right foot activity is seen near the head of the fifth metatarsal, calcane us and to a lesser degree the first metatarsal head and first phalanx. Left foot shows abnormal activity near the tibiotalar joint space posteriorly. Abnormal activity is s een in the dorsum of the midfoot. Soft tissue ulceration is evident on the recent plain film. IMPRESSION: Numerous bilateral foot and ankle areas of abnormal three-phase imaging including at a s ite of surgical hardware in the distal left tibia and fibula. Abnormal activity can be present in the setting of surgical hardware is well is the setting of degene rative change. However, collective findings would favor bilateral foci of osteomyelitis.
--- NOTE | 2021-06-09 11:04 | P.PN ---
Subjective Date of Service: 06/09/21 Primary Care Provider: Dr. Lowe Chief Complaint: BLE Cellulitus Subjective: Other (no acute changes, wounds are stable) Physical Examination - Vital Signs Temperature: 97.6 F Blood Pressure: 111/62 Pulse: 70 Respirations: 16 Pulse Ox (%): 96 - Physical Exam General: Alert, In no apparent distress, Cooperative Integumentary: Other (wounds of bilateral lower extremities unchanged, exposed hardware noted on RIGHT foot) - Studies Microbiology Data (last 24 hrs): 06/03/21 23:27 Blood - Blood Aerobic Blood Culture - Final No growth in 5 days. 06/03/21 23:27 Blood - Blood Anaerobic Blood Culture - Final 06/03/21 23:38 Blood - Blood Aerobic Blood Culture - Final No growth in 5 days. 06/03/21 23:38 Blood - Blood Anaerobic Blood Culture - Final Medications List Reviewed: Yes Assessment And Plan - Current Problems (Diagnosis) (1) Venous stasis ulcer limited to breakdown of skin without varicose veins Current Visit: Yes Status: Acute Plan: Bilateral lower extremity venous stasis ulcers - continue antibiotics - continue local wound care - I have recommeded surgical debridment of bilateral lower extremity wounds and await orthopedic surgery consult for exposed RIGHT Lower extremity hardware - continue medical management (2) Exposed orthopaedic hardware Current Visit: Yes Status: Acute
--- NOTE | 2021-06-09 11:09 | P.CNS ---
Date of Consult: 06/09/21 Primary Care Provider: Dr. Lowe Chief Complaint: BLE Cellulitus History of Present Illness: The patient is a 80-year-old female with a past medical history of venous insufficiency and bilateral chronic venous stasis ulcers who presented to the emergency department via EMS. Patient states that she does not remember why/how she came to the hospital, states that she just woke up and she was here. Per chart review patient has a history of memory loss/dementia. On admission she was slightly confused and did not understand why she was being admitted. On exam patient was noted to have multiple bilateral lower extremity ulcers, with exposed hardware to the right medial malleoli. Bone nuclear medicine scan showed signs concerning for bilateral foci of osteomyelitis. Surgical team plans to take the patient to the OR this Wednesday for debridement of wounds and possible removal of it eroded hardware. Patient had left arm PICC line placed on 06/07. Left foot wound cultures growing MRSA and Citrobacter freundii. Patient was empirically started on vancomycin, Rocephin will be answered to patient's antibiotic regimen. Blood culture showed no growth. Patient currently denies nausea/vomiting/diarrhea/shortness of breath/chest pain. Patient reports pain and a burning sensation to her bilateral lower extremity wounds. Allergies No Known Allergies Allergy (Verified 06/04/21 03:58) Home Medications: Acetaminophen 500 mg PO Q6HP PRN 04/14/21 Ascorbic Acid [Vitamin C] 500 mg PO DAILY 04/14/21 Cholecalciferol (Vitamin D3) [Vitamin D3] 25 mcg PO DAILY 04/14/21 Mirabegron [Myrbetriq] 50 mg PO DAILY 04/14/21 Naproxen Sodium 220 mg PO Q12HP PRN 04/14/21 Zinc Sulfate 50 mg PO DAILY 04/14/21 - Past Medical/Surgical History Diabetic: No -: Overactive Bladder -: Lymphedema -: Depression -: Venous Insufficiency -: Appendectomy -: Cholecystectomy Psychosocial/ Personal History: Patient lives at [facility]. - Family History Sister Medical History: Diabetes - Social History Smoking Status: Unknown if ever smoked Alcohol use: No CD- Drugs: No Caffeine use: Yes Place of Residence: [facility] Review of Systems 10-point ROS is otherwise unremarkable Physical Examination Temp Pulse Resp BP Pulse Ox 97.6 F 70 16 111/62 96 06/09/21 08:53 06/09/21 08:53 06/09/21 08:53 06/09/21 08:53 06/09/21 08:53 General: Mild distress, Confused HEENT: Atraumatic, Normocephalic Neck: Supple, 2+ carotid pulse no bruit Respiratory: Clear to auscultation bilaterally, Normal air movement Cardiovascular: Normal pulses, Regular rate/rhythm Gastrointestinal: Normal bowel sounds, Soft and benign Integumentary: Other (Multiple wounds to bilateral lower extremities. Right medial malleoli wound has hardware that has eroded to the skin.) Conclusions/Impression: Antibiotics: Vancomycin: 06/08current Rocephin: urrent Assessment/plan Multiple bilateral lower extremity venous stasis ulcerations with right medial malleoli exposed hardware -Secondary to exposed hardware and bone nuclear medicine scan findings patient will need IV antibiotics for 6 weeks Wound culture growing MRSA and Citrobacter freundii, recommend continuing vancomycin and Rocephin. Patient had left arm PICC line placed on 06/07 General surgery consulted, plans to take patient to the OR this Wednesday for surgical debridement of wounds and possible removal of eroded hardware Continue local wound care. Recommend keeping legs elevated Protein caloric malnutrition Recommend supplemental Ensure protein drinks. Adequate nutrition needed for proper wound healing/infection control Anemia Continue to monitor H&H Altered mental status with history of underlying dementia -Medical management per primary team Plan of care discussed with Dr. Pruitt Thank you for consultation
--- NOTE | 2021-06-09 12:58 | RAD REPORT ---
EXAM DESCRIPTION: RAD - Chest Single View - 06/07/2021 2:16 am CLINICAL HISTORY: The patient is 80 years old and is Female; S/P PICC insertion TECHNIQUE: Frontal view of the chest. COMPARISON: No relevant prior studies available. FINDINGS: Lungs: Haziness in the right lung base which may be due to atelectasis. Pleural space: Unremarkable. No pneumothorax. Heart: Unremarkable. Mediastinum: Unremarkable. Bones/joints: Unremarkable. Tubes, lines and devices: Right PICC with tip in the SVC. IMPRESSION: 1. Right PICC with tip in the SVC. 2. Haziness in the right lung base which may be due to atelectasis. Electronically signed by: Saleem Hensley MD 06/07/2021 2:25 AM CDT Due to temporary technical issues with the PACS/Fluency reporting system, reports are being signed by the in house radiologist without review as a courtesy to ensure prompt reporting. The interpreting r adiologist is fully responsible for the content of the report.
[2021-06-09] MEDS: ACETAMINOPHEN 500 MG TAB PO PRN (13:18)
[2021-06-09] MEDS ORDERED: MORPHINE 2 MG/ML SYR IV ONE (14:28)
[2021-06-09] MEDS: VANCOMYCIN 1.25 GM in NA CHLORIDE 0.9% 250 ML IVPB SCH (22:01)
[2021-06-10 05:00] LABS: Potassium 3.7 mmol/L (3.5-5.1)
[2021-06-10] MEDS ORDERED: NA CHLORIDE 0.9% 100 ML ONE (08:35)
[2021-06-10] MEDS ORDERED: POTASSIUM CL SA 10 MEQ TAB PO ONE (09:00)
[2021-06-10] MEDS: CEFTRIAXONE 2,000 MG in NA CHLORIDE 0.9% 100 ML IV SCH (09:06)
[2021-06-10] MEDS: CALCIUM CARB 500MG/VIT D 200 IU TAB PO SCH ×2 (09:06→20:13)
[2021-06-10] MEDS: ENOXAPARIN 30 MG/0.3 ML SQ SCH (09:06)
[2021-06-10] MEDS: COLLAGENASE 30 GM OINTMENT TOP SCH (09:07)
[2021-06-10] MEDS: SODIUM HYPOCHLORITE 0.125% TOP SCH (09:07)
[2021-06-10] MEDS: MORPHINE 2 MG/ML SYR IV PRN ×2 (09:08→21:35)
--- NOTE | 2021-06-10 11:37 | P.PN ---
Subjective Date of Service: 06/10/21 Primary Care Provider: Dr. Lowe Chief Complaint: BLE Cellulitus Patient seen and examined at bedside, still having pain to bilateral lower extremities/feet. Review of Systems 10-point ROS is otherwise unremarkable Physical Examination - Vital Signs Temperature: 98.8 F Blood Pressure: 119/60 Pulse: 79 Respirations: 17 Pulse Ox (%): 93 - Studies Microbiology 06/03/21 23:27 Blood - Blood Aerobic Blood Culture - Final No growth in 5 days. 06/03/21 23:27 Blood - Blood Anaerobic Blood Culture - Final 06/03/21 23:38 Blood - Blood Aerobic Blood Culture - Final No growth in 5 days. 06/03/21 23:38 Blood - Blood Anaerobic Blood Culture - Final 06/03/21 23:00 Wound - Left Foot Gram Stain - Final 06/03/21 23:00 Wound - Left Foot Culture & Sensitivity - Final Meth Resistant Staph Aureus Citrobacter Freundii Complex Medications List Reviewed: Yes Assessment And Plan - Plan Physical Exam: General: Mild distress, Confused HEENT: Atraumatic, Normocephalic Neck: Supple, 2+ carotid pulse no bruit Respiratory: Clear to auscultation bilaterally, Normal air movement Cardiovascular: Normal pulses, Regular rate/rhythm Gastrointestinal: Normal bowel sounds, Soft and benign Integumentary: Other (Multiple wounds to bilateral lower extremities. Right medial malleoli wound has hardware that has eroded to the skin.) Conclusions/Impression: Antibiotics: Vancomycin: 06/08current Rocephin: urrent Assessment/plan Multiple bilateral lower extremity venous stasis ulcerations with right medial malleoli exposed hardware -Secondary to exposed hardware and bone nuclear medicine scan findings patient will need IV antibiotics for 6 weeks Wound culture growing MRSA and Citrobacter freundii, recommend continuing vancomycin and Rocephin. Patient had left arm PICC line placed on 06/07 General surgery consulted, plans to take patient to the OR this Wednesday for surgical debridement of wounds and possible removal of eroded hardware Continue local wound care. Recommend keeping legs elevated Protein caloric malnutrition Recommend supplemental Ensure protein drinks. Adequate nutrition needed for proper wound healing/infection control Anemia Continue to monitor H&H Altered mental status with history of underlying dementia -Medical management per primary team Plan of care discussed with Dr. Pruitt Thank you for consultation
[2021-06-10] MEDS: ACETAMINOPHEN 500 MG TAB PO PRN ×2 (12:24→20:13)
--- NOTE | 2021-06-10 13:28 | P.PN ---
Subjective Date of Service: 06/10/21 Primary Care Provider: Dr. Lowe Chief Complaint: BLE Cellulitus Subjective: No new changes, Improving Physical Examination - Vital Signs Temperature: 97.6 F Blood Pressure: 111/62 Pulse: 70 Respirations: 16 Pulse Ox (%): 96 - Physical Exam General: Alert, Oriented x3 HEENT: Atraumatic, Normocephalic Neck: Supple Respiratory: Normal air movement Cardiovascular: Regular rate/rhythm, Normal S1 S2 Gastrointestinal: Soft and benign Musculoskeletal: No swelling Neurological: Normal strength at 5/5 x4 extr, Sensation intact - Studies Medications List Reviewed: Yes Assessment And Plan - Plan Continue with plan of care as mentioned below: 1. Continue with IV antibiotic x 6 weeks 2. Continue with local wound care 3. Wound care consultation/surgical consultation/orthopedic consult pending 4. Diet as tolerated; Hep-Lock IV pending surgery 5. Monitor CBC 6. Strict blood sugar monitoring 7. Pain control as needed. 8. we will add gabapentin for better neuropathy management. 9. GI and DVT prophylaxis
--- NOTE | 2021-06-10 17:24 | CON ---
Date of Consultation: 06/09/2021 Reason For Consultation: Right ankle exposed hardware. History Of Present Illness: Ms. Woodruff is a 80-year-old female who presented to the ER with bilater al lower extremity cellulitis as well as history of venous insufficiency and stasis ulcers. Upon carolyn luation in the emergency room, she was noted to have exposed hardware over the medial aspect of her r ight ankle. The patient is also under the care of Dr. Adame who has scheduled the patient for debr idement of her wounds on her bilateral lower extremities. I was called for help with removal of the exposed hardware. The patient does not recall when she had the procedure done and no outside records from her prior surgery were available at this time. She was started on IV antibiotics after admissi on and was noted to have some increased uptake on her bone scan in her bilateral feet. Review of Systems: As above, otherwise negative. Past Medical History: Includes lymphedema, depression, magnesium deficiency. Past Surgical History: Includes appendectomy, cholecystectomy, and right ankle ORIF with tibial nail . Family History: Positive for diabetes in her sister. Social History: Denies tobacco or alcohol use. [facility] at [facility]. Allergies: NO KNOWN DRUG ALLERGIES. Medications: Per home med rec. Physical Examination: General: No apparent distress. HEENT: Normocephalic, atraumatic. Neck: Supple. Cardiovascular: Brisk cap refill to all digits. Chest: Nonlabored breathing. Abdomen: Nondistended. Psychiatric: Responsive to exam. However, some mild confusion is noted. Extremities: Right lower extremity demonstrates an ulcer over the medial malleolus with head of a sc rew noted within the wound and minimal erythema noted. No active drainage noted. X-rays: X-rays of the right ankle were reviewed which demonstrated a loose medial malleolus screw wh ich has backed out at least 1 cm. The remainder of the hardware in the right ankle appears to be fix ed with no obvious loosening noted. Assessment And Plan: Ms. Woodruff is a 80-year-old female with bilateral lower extremity ulcers with exposed hardware over the right medial malleolus. I discussed with the patient at length the diagnos is as well as treatment plan. She is scheduled for bilateral lower extremity irrigation and debridem ent. Given the exposed hardware, I recommended to remove the hardware to aid with wound healing. At this time the single medial malleolus screw which has backed out the only hardware I recommend remov ing at this time and we will follow up for a complete wound healing after the removal. If she contin ues to have difficulty in clearing any infection, she may need a more complete ankle and tibial hardw are removal in the future. However, that would be a very large surgery and it would be extremely ris ky for the patient given her bone quality and multiple medical comorbidities. We will proceed with r emoval of the medial malleolus screw tomorrow and further debridement of the wound will be per the [facility] Surgery team. CV/MODL Voice ID: [id number] Report ID: [id number]
[2021-06-10] MEDS: VANCOMYCIN 1.25 GM in NA CHLORIDE 0.9% 250 ML IVPB SCH (20:13)
[2021-06-10] MEDS ORDERED: MORPHINE 2 MG/ML SYR IV ONE (22:53)
[2021-06-11 04:52] LABS: Potassium 3.5 mmol/L (3.5-5.1)
[2021-06-11] MEDS ORDERED: NA CHLORIDE 0.9% 250 ML ONE (05:38)
[2021-06-11] MEDS ORDERED: KCL 20 MEQ/100 mL IVPB 20 MEQ/100 ML BAG IV SCH (06:00)
[2021-06-11] MEDS: SODIUM HYPOCHLORITE 0.125% TOP SCH (08:44)
[2021-06-11] MEDS: CALCIUM CARB 500MG/VIT D 200 IU TAB PO SCH ×2 (08:44→20:26)
[2021-06-11] MEDS: ENOXAPARIN 40 MG/0.4 ML SQ SCH (08:44)
[2021-06-11] MEDS: MORPHINE 2 MG/ML SYR IV PRN (08:45)
[2021-06-11] MEDS: CEFTRIAXONE 2,000 MG in NA CHLORIDE 0.9% 100 ML IV SCH (08:45)
[2021-06-11] MEDS: COLLAGENASE 30 GM OINTMENT TOP SCH (08:46)
[2021-06-11] MEDS ORDERED: Ringers Lactate 1,000 ML IV ONE (10:39)
--- NOTE | 2021-06-11 11:19 | P.PN ---
Subjective Date of Service: 06/11/21 Primary Care Provider: Dr. Lowe Chief Complaint: BLE Cellulitus Patient seen and examined at bedside, surgical team plans to take patient to the OR today for irrigation debridement of bilateral venous wounds and removal of eroded hardware. Review of Systems 10-point ROS is otherwise unremarkable Physical Examination - Vital Signs Temperature: 97.2 F Blood Pressure: 133/59 Pulse: 71 Respirations: 18 Pulse Ox (%): 98 - Studies Laboratory Last Values WBC 5.3 K/uL (4.3-10.9) 06/03/21 22:50 RBC 3.27 M/uL (3.86-4.86) L 06/03/21 22:50 Hgb 10.0 g/dL (12.0-15.0) L 06/03/21 22:50 Hct 28.9 % (36.0-45.0) L 06/03/21 22:50 MCV 88.3 fL (80-100) 06/03/21 22:50 MCH 30.7 pg (27.0-35.0) 06/03/21 22:50 MCHC 34.8 g/dL (32.0-36.0) 06/03/21 22:50 RDW 14.9 % (12.1-15.2) 06/03/21 22:50 Plt Count 195 K/uL (152-406) 06/03/21 22:50 MPV 6.6 fL (7.6-11.3) L 06/03/21 22:50 Neutrophils % 55.7 % (41.7-73.7) 06/03/21 22:50 Lymphocytes % 32.4 % (15.3-44.8) 06/03/21 22:50 Monocytes % 9.6 % (3.3-12.3) 06/03/21 22:50 Eosinophils % 1.2 % (0-4.4) 06/03/21 22:50 Basophils % 1.1 % (0-1.3) 06/03/21 22:50 Absolute Neutrophils 2.9 K/uL (1.8-8.0) 06/03/21 22:50 Absolute Lymphocytes 1.7 K/uL (0.7-4.9) 06/03/21 22:50 Absolute Monocytes 0.5 K/uL (0.1-1.3) 06/03/21 22:50 Absolute Eosinophils 0.1 K/uL (0-0.5) 06/03/21 22:50 Absolute Basophils 0.1 K/uL (0-0.5) 06/03/21 22:50 PT 12.8 SECONDS (9.5-12.5) H 06/03/21 22:50 INR 1.16 06/03/21 22:50 Sodium 138 mmol/L (136-145) 06/03/21 22:50 Potassium 3.5 mmol/L (3.5-5.1) 06/03/21 22:50 Chloride 104 mmol/L (98-107) 06/03/21 22:50 Carbon Dioxide 29 mmol/L (21-32) 06/03/21 22:50 BUN 30 mg/dL (7-18) H 06/03/21 22:50 Creatinine 1.39 mg/dL (0.55-1.3) H 06/03/21 22:50 Estimated GFR 37 mL/min (=/>90) L 06/03/21 22:50 Glucose 102 mg/dL (74-106) 06/03/21 22:50 Calcium 8.2 mg/dL (8.5-10.1) L 06/03/21 22:50 Magnesium 1.8 mg/dL (1.8-2.4) 06/03/21 22:50 Total Bilirubin 0.4 mg/dL (0.2-1.0) 06/03/21 22:50 Direct Bilirubin 0.2 mg/dL (0-0.2) 06/03/21 22:50 AST 62 U/L (15-37) H 06/03/21 22:50 ALT 35 U/L (12-78) 06/03/21 22:50 Alkaline Phosphatase 138 U/L (45-117) H 06/03/21 22:50 Troponin I High Sens 7.8 pg/mL (<58.9) 06/03/21 22:50 NT-Pro-B Natriuret Pep 735 pg/mL (<450) H 06/03/21 22:50 Serum Total Protein 6.6 g/dL (6.4-8.2) 06/03/21 22:50 Albumin 2.0 g/dL (3.4-5.0) L 06/03/21 22:50 Globulin 4.6 g/dL (2.3-3.5) H 06/03/21 22:50 Albumin/Globulin Ratio 0.4 (1.1-1.8) L 06/03/21 22:50 SARS-CoV-2 Rap RNA(RT-PCR) Negative (NEGATIVE) 06/03/21 22:59 Medications List Reviewed: Yes Assessment And Plan - Plan Physical Exam: General: Mild distress, Confused HEENT: Atraumatic, Normocephalic Neck: Supple, 2+ carotid pulse no bruit Respiratory: Clear to auscultation bilaterally, Normal air movement Cardiovascular: Normal pulses, Regular rate/rhythm Gastrointestinal: Normal bowel sounds, Soft and benign Integumentary: Other (Multiple wounds to bilateral lower extremities. Right medial malleoli wound has hardware that has eroded to the skin.) Conclusions/Impression: Antibiotics: Vancomycin: 06/08current Rocephin: urrent Assessment/plan Multiple bilateral lower extremity venous stasis ulcerations with right medial malleoli exposed hardware -Secondary to exposed hardware and bone nuclear medicine scan findings patient will need IV antibiotics for 6 weeks Wound culture growing MRSA and Citrobacter freundii, recommend continuing vancomycin and Rocephin. Patient had left arm PICC line placed on 06/07 General surgery consulted, plans to take patient to the OR this Wednesday for surgical debridement of wounds and possible removal of eroded hardware Continue local wound care. Recommend keeping legs elevated Protein caloric malnutrition Recommend supplemental Ensure protein drinks. Adequate nutrition needed for proper wound healing/infection control Anemia Continue to monitor H&H Altered mental status with history of underlying dementia -Medical management per primary team Plan of care discussed with Dr. Pruitt Thank you for consultation
[2021-06-11] MEDS ORDERED: FENTANYL CITR 100 MCG/2 ML ONE (11:43)
[2021-06-11] MEDS ORDERED: LIDOCAINE 1% MPF 5 ML VIAL ONE (11:43)
[2021-06-11] MEDS ORDERED: propofoL 200 MG/20 ML VIAL IV ONE (11:43)
--- NOTE | 2021-06-11 12:01 | P.PN ---
Subjective Date of Service: 06/11/21 Primary Care Provider: Dr. Lowe Chief Complaint: BLE Cellulitus Subjective: No new changes, Improving (wounds to be debrided today.) Physical Examination - Vital Signs Temperature: 97.2 F Blood Pressure: 133/59 Pulse: 71 Respirations: 18 Pulse Ox (%): 98 - Physical Exam General: Alert, Oriented x3 HEENT: Atraumatic, Normocephalic Neck: Supple Respiratory: Normal air movement Cardiovascular: Regular rate/rhythm, Normal S1 S2 Gastrointestinal: Soft and benign Musculoskeletal: Other (wounds in leg noted.) Neurological: Normal speech - Studies Medications List Reviewed: Yes Assessment And Plan - Plan Continue with plan of care as mentioned below: 1. Continue with IV antibiotic x 6 weeks 2. Continue with local wound care 3. Wounds to be debrided today and hardware to be removed as per orthopedics surgeon. 4. Diet as tolerated; Hep-Lock IV pending surgery 5. Monitor CBC 6. Strict blood sugar monitoring 7. Pain control as needed. 8. we will continue gabapentin for better neuropathy management. 9. GI and DVT prophylaxis
[2021-06-11] MEDS ORDERED: ONDANSETRON 4 MG/2 ML VIAL ONE (12:16)
[2021-06-11] MEDS ORDERED: EPHEDRINE SULF 50 MG/ML VIAL ONE (12:38)
--- NOTE | 2021-06-11 12:43 | P.BOP ---
Preoperative diagnosis: right ankle wound with loose hardware Postoperative diagnosis: same Primary procedure: removal of hardware right ankle Nursing Informatics Clinical Analyst: NONE,NONE Estimated blood loss: 3 cc Specimen: right medial malleolus screw Findings: see dictation Anesthesia: General Complications: None Implants: none Fluids & blood products: per anesthesia record Transferred to: Recovery Room Condition: Good
--- NOTE | 2021-06-11 12:48 | P.OP ---
Preoperative diagnosis: Bilateral Lower Extremity and LEFT foot dorsal wound Postoperative diagnosis: Bilateral Lower Extremity and LEFT foot dorsal wound Primary procedure: Debridement of Bilateral Lower Extremity and LEFT foot dorsal wound Secondary procedure: Pulse lavage of above wound Anesthesia: GETA Estimated blood loss: <10cc Specimen: debridement tissue Findings: exposed tendon with necrosis of LEFT foot Complications: None Transferred to: Recovery Room Condition: Good
[2021-06-11] MEDS: HYDROMORPHONE HCL 1 MG/ML INJ ONE ×2 (13:27→13:32)
[2021-06-11] MEDS: GABAPENTIN 100 MG CAP PO SCH ×2 (14:26→20:26)
[2021-06-11] MEDS: HYDROMORPHONE HCL 0.5 MG/0.5 ML INJ IV PRN ×2 (14:26→18:45)
[2021-06-11] MEDS: VANCOMYCIN 1.25 GM in NA CHLORIDE 0.9% 250 ML IVPB SCH (20:26)
--- NOTE | 2021-06-11 23:44 | OP ---
Date of Procedure: 06/11/2021 Surgeon: Shahriar Adame MD, Preoperative Diagnosis: Bilateral lower extremity and left foot dorsal wound. Postoperative Diagnosis: Bilateral lower extremity and left foot dorsal wound. Procedure Performed: 1. Debridement of bilateral lower extremity wounds. 2. Left foot dorsal wound debridement down to exposed tendon,procedure with pulse lavage of above wound. Anesthesia: General endotracheal. Estimated Blood Loss: Less than 10 mL. Specimens: Debridement tissue. Findings: Exposed tendon with necrosis, left foot. Complications: None. Disposition: Patient was transferred to the recovery room in good condition. Procedure In Detail: After informed consent was obtained, the patient was brought to the operating room, prepped and draped in the usual sterile fashion. Please see Dr. Covington's note for removal of hardware of the right foot on the medial malleolus, which was exposed associated with concomitant infection. I then entered the room performed curette and sharp debridement of all necrotic tissues and 5 open exposed wounds of the left lower extremity including the dorsum of the foot with exposed tendons and necrosis overlying these areas. These were all cleaned using a combination of sharp and blunt dissection as well as electrocautery along with a curette to clean out the necrotic tissue. After this was completed, I then turned my attention to the right lower extremity and in a similar fashion 4 wounds were appreciated. All of these were debrided sharply with a curette as well as electrocautery. Hemostasis was achieved with electrocautery and the area was pulse lavaged as well. Hemostasis was achieved in bilateral lower extremities with electrocautery alone after this was completed, pulse lavage was once again completed and the wounds were then covered with sterile dressing. The patient tolerated the procedure well without any evidence of complication, transferred to PACU in good condition. All counts were correct at the end of the case. ALVERTO/MODHaley Voice ID: [id number] Report ID: [id number] SOSA
[2021-06-12] MEDS: HYDROMORPHONE HCL 0.5 MG/0.5 ML INJ IV PRN ×3 (00:01→12:09)
--- NOTE | 2021-06-12 00:51 | OP ---
Date of Procedure: 06/11/2021 Surgeon: Dell Covington MD Preoperative Diagnosis: Right ankle loose hardware. Postoperative Diagnosis: Right ankle loose hardware. Procedure: Removal of hardware, right ankle. Anesthesia: General LMA. Fluids: Per Anesthesia record. Estimated Blood Loss: 3 cc. Implants: None. Complications: None. Indication: Jami is a 80-year-old female who had a nonhealing wound over the medial aspect of her right ankle with exposed medial malleolus screw. I discussed with the patient at length risks and be nefits associated with operative and nonoperative treatment. She expressed understanding and elected to proceed with operative treatment. The patient is also undergoing surgery during this time by Dr. Adame for debridement of her right foot and ankle wounds as well as left foot and ankle wounds. Description Of Procedure: After informed consent was obtained, the patient was identified in the pre operative holding area and brought back to the operating room, transferred to the operative table in supine fashion and placed under general LMA anesthesia. The bilateral lower extremities then prepped and draped in usual sterile fashion. A time-out was initiated. The correct patient and procedure w ere confirmed and identified. The patient has been receiving antibiotics on the floor. There was an exposed partially threaded cancellous screw noted medially which was superficial. X-rays demonstrat ed a loose medial malleolar screw. The remaining hardware was found to be intact and would not need to be removed. Screwdriver was then used to remove the single loose medial malleolar screw without c omplication. The screw tract was then debrided using a curette. At that point, Dr. Aadme took ove r for further debridement of her foot and ankle wounds on her bilateral lower extremities. Postoperative Plan: The patient may be weightbearing as tolerated on her right lower extremity and f urther wound care will be per Dr. Adame. CV/MODL Voice ID: [id number] Report ID: [id number]
[2021-06-12 05:00] LABS: Potassium 3.9 mmol/L (3.5-5.1)
[2021-06-12] MEDS ORDERED: NA CHLORIDE 0.9% 100 ML ONE (07:53)
[2021-06-12] MEDS: ENOXAPARIN 40 MG/0.4 ML SQ SCH (08:10)
[2021-06-12] MEDS: GABAPENTIN 100 MG CAP PO SCH ×3 (08:10→23:15)
[2021-06-12] MEDS: CALCIUM CARB 500MG/VIT D 200 IU TAB PO SCH ×2 (08:10→21:00)
[2021-06-12] MEDS: SODIUM HYPOCHLORITE 0.125% TOP SCH (08:11)
[2021-06-12] MEDS: COLLAGENASE 30 GM OINTMENT TOP SCH (08:11)
[2021-06-12] MEDS: CEFTRIAXONE 2,000 MG in NA CHLORIDE 0.9% 100 ML IV SCH (08:14)
[2021-06-12] MEDS ORDERED: CEFTRIAXONE 2000 MG/VIAL ONE (08:17)
[2021-06-12] MEDS ORDERED: POTASSIUM CL SA 10 MEQ TAB PO ONE (09:00)
[2021-06-12] MEDS: MORPHINE 2 MG/ML SYR IV PRN (10:19)
[2021-06-12] MEDS: ACETAMINOPHEN 500 MG TAB PO PRN ×3 (12:09→23:14)
--- NOTE | 2021-06-12 12:15 | P.PN ---
Subjective Date of Service: 06/12/21 Primary Care Provider: Dr. Lowe Chief Complaint: BLE Cellulitus Patient seen and examined at bedside, having significant pain to bilateral lower extremities despite being on IV morphine and IV Dilaudid. Review of Systems 10-point ROS is otherwise unremarkable Physical Examination - Vital Signs Temperature: 98.2 F Blood Pressure: 98/50 Pulse: 84 Respirations: 18 Pulse Ox (%): 99 - Studies Laboratory Last Values WBC 5.3 K/uL (4.3-10.9) 06/03/21 22:50 RBC 3.27 M/uL (3.86-4.86) L 06/03/21 22:50 Hgb 10.0 g/dL (12.0-15.0) L 06/03/21 22:50 Hct 28.9 % (36.0-45.0) L 06/03/21 22:50 MCV 88.3 fL (80-100) 06/03/21 22:50 MCH 30.7 pg (27.0-35.0) 06/03/21 22:50 MCHC 34.8 g/dL (32.0-36.0) 06/03/21 22:50 RDW 14.9 % (12.1-15.2) 06/03/21 22:50 Plt Count 195 K/uL (152-406) 06/03/21 22:50 MPV 6.6 fL (7.6-11.3) L 06/03/21 22:50 Neutrophils % 55.7 % (41.7-73.7) 06/03/21 22:50 Lymphocytes % 32.4 % (15.3-44.8) 06/03/21 22:50 Monocytes % 9.6 % (3.3-12.3) 06/03/21 22:50 Eosinophils % 1.2 % (0-4.4) 06/03/21 22:50 Basophils % 1.1 % (0-1.3) 06/03/21 22:50 Absolute Neutrophils 2.9 K/uL (1.8-8.0) 06/03/21 22:50 Absolute Lymphocytes 1.7 K/uL (0.7-4.9) 06/03/21 22:50 Absolute Monocytes 0.5 K/uL (0.1-1.3) 06/03/21 22:50 Absolute Eosinophils 0.1 K/uL (0-0.5) 06/03/21 22:50 Absolute Basophils 0.1 K/uL (0-0.5) 06/03/21 22:50 PT 12.8 SECONDS (9.5-12.5) H 06/03/21 22:50 INR 1.16 06/03/21 22:50 Sodium 138 mmol/L (136-145) 06/03/21 22:50 Potassium 3.5 mmol/L (3.5-5.1) 06/03/21 22:50 Chloride 104 mmol/L (98-107) 06/03/21 22:50 Carbon Dioxide 29 mmol/L (21-32) 06/03/21 22:50 BUN 30 mg/dL (7-18) H 06/03/21 22:50 Creatinine 1.39 mg/dL (0.55-1.3) H 06/03/21 22:50 Estimated GFR 37 mL/min (=/>90) L 06/03/21 22:50 Glucose 102 mg/dL (74-106) 06/03/21 22:50 Calcium 8.2 mg/dL (8.5-10.1) L 06/03/21 22:50 Magnesium 1.8 mg/dL (1.8-2.4) 06/03/21 22:50 Total Bilirubin 0.4 mg/dL (0.2-1.0) 06/03/21 22:50 Direct Bilirubin 0.2 mg/dL (0-0.2) 06/03/21 22:50 AST 62 U/L (15-37) H 06/03/21 22:50 ALT 35 U/L (12-78) 06/03/21 22:50 Alkaline Phosphatase 138 U/L (45-117) H 06/03/21 22:50 Troponin I High Sens 7.8 pg/mL (<58.9) 06/03/21 22:50 NT-Pro-B Natriuret Pep 735 pg/mL (<450) H 06/03/21 22:50 Serum Total Protein 6.6 g/dL (6.4-8.2) 06/03/21 22:50 Albumin 2.0 g/dL (3.4-5.0) L 06/03/21 22:50 Globulin 4.6 g/dL (2.3-3.5) H 06/03/21 22:50 Albumin/Globulin Ratio 0.4 (1.1-1.8) L 06/03/21 22:50 SARS-CoV-2 Rap RNA(RT-PCR) Negative (NEGATIVE) 06/03/21 22:59 Medications List Reviewed: Yes Assessment And Plan - Plan Physical Exam: General: Mild distress, Confused HEENT: Atraumatic, Normocephalic Neck: Supple, 2+ carotid pulse no bruit Respiratory: Clear to auscultation bilaterally, Normal air movement Cardiovascular: Normal pulses, Regular rate/rhythm Gastrointestinal: Normal bowel sounds, Soft and benign Integumentary: Other (Multiple wounds to bilateral lower extremities status post debridement) Conclusions/Impression: Antibiotics: Vancomycin: 06/08current Rocephin: urrent Assessment/plan Multiple bilateral lower extremity venous stasis ulcerations with right medial malleoli exposed hardware -Secondary to exposed hardware and bone nuclear medicine scan findings patient will need IV antibiotics for 6 weeks Wound culture growing MRSA and Citrobacter freundii, recommend continuing vancomycin and Rocephin. Patient had left arm PICC line placed on 06/07 Patient was taken to the OR on 06/11 for irrigation and debridement of multiple bilateral lower extremity wounds as well as removal of eroded screw to the right mat medial malleoli. Patient tolerated surgery well. Continue local wound care. Recommend keeping legs elevated Protein caloric malnutrition Recommend supplemental Ensure protein drinks. Adequate nutrition needed for proper wound healing/infection control Anemia Continue to monitor H&H Altered mental status with history of underlying dementia -Medical management per primary team Plan of care discussed with Dr. Pruitt Thank you for consultation
--- NOTE | 2021-06-12 17:56 | RAD REPORT ---
EXAM DESCRIPTION: RAD - Ankle Right 2 View - 06/12/2021 5:37 pm CLINICAL HISTORY: Ankle surgery FINDINGS: Since June 02, 2021 a screw has been removed from the medial malleolus. Additional orthopedic hardware unchanged. Osteoporosis. No acute fracture or dislocation
[2021-06-12] MEDS: VANCOMYCIN 1 GM in NA CHLORIDE 0.9% 250 ML IVPB SCH (23:14)
[2021-06-13 06:09] LABS: Potassium 3.9 mmol/L (3.5-5.1)
[2021-06-13] MEDS ORDERED: POTASSIUM CL SA 10 MEQ TAB PO ONE (09:00)
[2021-06-13] MEDS: ENOXAPARIN 40 MG/0.4 ML SQ SCH (09:29)
[2021-06-13] MEDS: CALCIUM CARB 500MG/VIT D 200 IU TAB PO SCH ×2 (09:30→21:40)
[2021-06-13] MEDS: CEFTRIAXONE 2,000 MG in NA CHLORIDE 0.9% 100 ML IV SCH (09:30)
[2021-06-13] MEDS: ACETAMINOPHEN 500 MG TAB PO PRN ×4 (09:31→21:40)
[2021-06-13] MEDS: GABAPENTIN 100 MG CAP PO SCH ×3 (09:31→21:40)
[2021-06-13] MEDS: COLLAGENASE 30 GM OINTMENT TOP SCH (09:32)
[2021-06-13] MEDS: SODIUM HYPOCHLORITE 0.125% TOP SCH (09:32)
--- NOTE | 2021-06-13 09:48 | P.PN ---
Subjective Date of Service: 06/12/21 Primary Care Provider: Dr. Lowe Chief Complaint: BLE Cellulitus Subjective: No new changes (Had wound debrided.) Physical Examination - Vital Signs Temperature: 97.2 F Blood Pressure: 116/58 Pulse: 73 Respirations: 12 Pulse Ox (%): 97 - Physical Exam General: Alert, Oriented x3 HEENT: Atraumatic, Normocephalic Neck: Supple Respiratory: Normal air movement Cardiovascular: Regular rate/rhythm, Normal S1 S2 Gastrointestinal: Soft and benign Integumentary: Skin breakdown, Skin lesion - Studies Medications List Reviewed: Yes Assessment And Plan - Plan Continue with plan of care as mentioned below: 1. Continue with IV antibiotic x 6 weeks 2. Continue with local wound care 3. Wounds debrided yesterday and hardware removed by orthopedics surgeon. 4. Diet as tolerated; Hep-Lock IV pending surgery 5. Monitor CBC 6. Strict blood sugar monitoring 7. Pain control as needed. 8. we will continue gabapentin for better neuropathy management. 9. GI and DVT prophylaxis
--- NOTE | 2021-06-13 09:50 | P.PN ---
Subjective Date of Service: 06/13/21 Primary Care Provider: Dr. Lowe Chief Complaint: BLE Cellulitus Subjective: No new changes Physical Examination - Vital Signs Temperature: 97.2 F Blood Pressure: 116/58 Pulse: 73 Respirations: 12 Pulse Ox (%): 97 - Physical Exam General: Alert, Oriented x3 HEENT: Atraumatic, Normocephalic Neck: Supple Respiratory: Normal air movement Cardiovascular: Regular rate/rhythm, Normal S1 S2 Gastrointestinal: Soft and benign Integumentary: Skin lesion, Tenderness/swelling - Studies Medications List Reviewed: Yes Assessment And Plan - Plan Continue with plan of care as mentioned below: 1. Continue with IV antibiotic x 6 weeks 2. Continue with local wound care 3. Wounds debrided, routine wound care as per surgeon and wound care team. 4. Diet as tolerated; Hep-Lock IV pending surgery 5. Monitor CBC 6. Strict blood sugar monitoring 7. Pain control as needed. 8. we will continue gabapentin for better neuropathy management. 9. GI and DVT prophylaxis
--- NOTE | 2021-06-13 10:41 | P.PN ---
Subjective Date of Service: 06/13/21 Primary Care Provider: Dr. Lowe Chief Complaint: BLE Cellulitus Subjective: Improving (Patient states her leg pain has been improving since surgery) Physical Examination - Vital Signs Temperature: 97.2 F Blood Pressure: 116/58 Pulse: 73 Respirations: 12 Pulse Ox (%): 97 - Physical Exam General: Alert, In no apparent distress, Cooperative Integumentary: Other (wounds well wrapped, no cellulitis, no infection, wounds clean) - Studies Medications List Reviewed: Yes Assessment And Plan - Current Problems (Diagnosis) (1) Venous stasis ulcer limited to breakdown of skin without varicose veins Current Visit: Yes Status: Acute Plan: Bilateral lower extremity venous stasis ulcers - continue antibiotics - continue local wound care with daily dressing changes, keep xeroform to exposed tendons, and damp to dry dressings, other wounds to be covered with Vashe / Santyl daily - continue medical management (2) Exposed orthopaedic hardware Current Visit: Yes Status: Acute
--- NOTE | 2021-06-13 11:22 | P.PN ---
Subjective Date of Service: 06/13/21 Primary Care Provider: Dr. Lowe Chief Complaint: BLE Cellulitus Patient seen and examined at bedside, states pain is better controlled today. Review of Systems 10-point ROS is otherwise unremarkable Physical Examination - Vital Signs Temperature: 97.2 F Blood Pressure: 116/58 Pulse: 73 Respirations: 12 Pulse Ox (%): 97 - Studies Laboratory Last Values WBC 5.3 K/uL (4.3-10.9) 06/03/21 22:50 RBC 3.27 M/uL (3.86-4.86) L 06/03/21 22:50 Hgb 10.0 g/dL (12.0-15.0) L 06/03/21 22:50 Hct 28.9 % (36.0-45.0) L 06/03/21 22:50 MCV 88.3 fL (80-100) 06/03/21 22:50 MCH 30.7 pg (27.0-35.0) 06/03/21 22:50 MCHC 34.8 g/dL (32.0-36.0) 06/03/21 22:50 RDW 14.9 % (12.1-15.2) 06/03/21 22:50 Plt Count 195 K/uL (152-406) 06/03/21 22:50 MPV 6.6 fL (7.6-11.3) L 06/03/21 22:50 Neutrophils % 55.7 % (41.7-73.7) 06/03/21 22:50 Lymphocytes % 32.4 % (15.3-44.8) 06/03/21 22:50 Monocytes % 9.6 % (3.3-12.3) 06/03/21 22:50 Eosinophils % 1.2 % (0-4.4) 06/03/21 22:50 Basophils % 1.1 % (0-1.3) 06/03/21 22:50 Absolute Neutrophils 2.9 K/uL (1.8-8.0) 06/03/21 22:50 Absolute Lymphocytes 1.7 K/uL (0.7-4.9) 06/03/21 22:50 Absolute Monocytes 0.5 K/uL (0.1-1.3) 06/03/21 22:50 Absolute Eosinophils 0.1 K/uL (0-0.5) 06/03/21 22:50 Absolute Basophils 0.1 K/uL (0-0.5) 06/03/21 22:50 PT 12.8 SECONDS (9.5-12.5) H 06/03/21 22:50 INR 1.16 06/03/21 22:50 Sodium 138 mmol/L (136-145) 06/03/21 22:50 Potassium 3.5 mmol/L (3.5-5.1) 06/03/21 22:50 Chloride 104 mmol/L (98-107) 06/03/21 22:50 Carbon Dioxide 29 mmol/L (21-32) 06/03/21 22:50 BUN 30 mg/dL (7-18) H 06/03/21 22:50 Creatinine 1.39 mg/dL (0.55-1.3) H 06/03/21 22:50 Estimated GFR 37 mL/min (=/>90) L 06/03/21 22:50 Glucose 102 mg/dL (74-106) 06/03/21 22:50 Calcium 8.2 mg/dL (8.5-10.1) L 06/03/21 22:50 Magnesium 1.8 mg/dL (1.8-2.4) 06/03/21 22:50 Total Bilirubin 0.4 mg/dL (0.2-1.0) 06/03/21 22:50 Direct Bilirubin 0.2 mg/dL (0-0.2) 06/03/21 22:50 AST 62 U/L (15-37) H 06/03/21 22:50 ALT 35 U/L (12-78) 06/03/21 22:50 Alkaline Phosphatase 138 U/L (45-117) H 06/03/21 22:50 Troponin I High Sens 7.8 pg/mL (<58.9) 06/03/21 22:50 NT-Pro-B Natriuret Pep 735 pg/mL (<450) H 06/03/21 22:50 Serum Total Protein 6.6 g/dL (6.4-8.2) 06/03/21 22:50 Albumin 2.0 g/dL (3.4-5.0) L 06/03/21 22:50 Globulin 4.6 g/dL (2.3-3.5) H 06/03/21 22:50 Albumin/Globulin Ratio 0.4 (1.1-1.8) L 06/03/21 22:50 SARS-CoV-2 Rap RNA(RT-PCR) Negative (NEGATIVE) 06/03/21 22:59 Medications List Reviewed: Yes Assessment And Plan - Plan Physical Exam: General: Mild distress, Confused HEENT: Atraumatic, Normocephalic Neck: Supple, 2+ carotid pulse no bruit Respiratory: Clear to auscultation bilaterally, Normal air movement Cardiovascular: Normal pulses, Regular rate/rhythm Gastrointestinal: Normal bowel sounds, Soft and benign Integumentary: Other (Multiple wounds to bilateral lower extremities status post debridement) Conclusions/Impression: Antibiotics: Vancomycin: 06/08current Rocephin: urrent Assessment/plan Multiple bilateral lower extremity venous stasis ulcerations with right medial malleoli exposed hardware -Secondary to exposed hardware and bone nuclear medicine scan findings patient will need IV antibiotics for 6 weeks Wound culture growing MRSA and Citrobacter freundii. MRSA sensitive to both Bactrim and vancomycin. Recommend continuing vancomycin and Rocephin for duration of hospital stay. If patient is sent to secondary facility can continue with vancomycin however patient is sent home with home health recommend sending patient home on Bactrim. Patient had left arm PICC line placed on 06/07. Patient was taken to the OR on 06/11 for irrigation and debridement of multiple bilateral lower extremity wounds as well as removal of eroded screw to the right mat medial malleoli. Tolerated surgery well. Continue local wound care. Recommend keeping legs elevated Protein caloric malnutrition Recommend supplemental Ensure protein drinks. Adequate nutrition needed for proper wound healing/infection control Anemia Continue to monitor H&H Altered mental status with history of underlying dementia -Medical management per primary team Plan of care discussed with Dr. Pruitt Thank you for consultation
[2021-06-13 12:26] LABS: Absolute Lymphocytes (CBC) 1.2 K/uL (0.7-4.9); Hematocrit 25.9 % (36.0-45.0); Lymphocytes % 25.7 % (15.3-44.8); MPV 7.4 fL (7.6-11.3); RBC Red Blood Cell Count 2.81 M/uL (3.86-4.86)
[2021-06-13] MEDS: HYDROCODONE/APAP 7.5/325 MG TAB PO PRN ×2 (12:51→22:30)
[2021-06-13] MEDS: VANCOMYCIN 1 GM in NA CHLORIDE 0.9% 250 ML IVPB SCH (21:40)
[2021-06-14 05:05] LABS: Potassium 3.8 mmol/L (3.5-5.1)
--- NOTE | 2021-06-14 07:31 | P.PN ---
Subjective Date of Service: 06/14/21 Primary Care Provider: Dr. Lowe Chief Complaint: BLE Cellulitus Subjective: No new changes, Improving (still has leg pain.) Physical Examination - Vital Signs Temperature: 97.6 F Blood Pressure: 97/48 Pulse: 71 Respirations: 16 Pulse Ox (%): 95 - Physical Exam General: Alert, Oriented x3 HEENT: Atraumatic, Normocephalic Neck: Supple Respiratory: Normal air movement Cardiovascular: Regular rate/rhythm, Normal S1 S2 Gastrointestinal: Soft and benign Integumentary: Skin breakdown, Skin lesion Neurological: Normal speech - Studies Medications List Reviewed: Yes Assessment And Plan - Plan Assessment: Cellulitis Leg Pain DM 2 Hyperlipidemia Hypertension Plan: Continue with plan of care as mentioned below: 1. Continue with IV antibiotic x 6 weeks 2. Continue with local wound care 3. Wounds debrided, routine wound care as per surgeon and wound care team. 4. Diet as tolerated; Hep-Lock IV pending surgery 5. Monitor CBC 6. Strict blood sugar monitoring 7. Pain control as needed. 8. Pain control meds changed to [place]. we will continue gabapentin for better neuropathy management. 9. GI and DVT prophylaxis
[2021-06-14] MEDS: ACETAMINOPHEN 500 MG TAB PO PRN ×2 (08:18→13:59)
[2021-06-14] MEDS: CEFTRIAXONE 2,000 MG in NA CHLORIDE 0.9% 100 ML IV SCH (08:18)
[2021-06-14] MEDS: CALCIUM CARB 500MG/VIT D 200 IU TAB PO SCH ×2 (08:18→20:39)
[2021-06-14] MEDS: SODIUM HYPOCHLORITE 0.125% TOP SCH (08:19)
[2021-06-14] MEDS: COLLAGENASE 30 GM OINTMENT TOP SCH (08:19)
[2021-06-14] MEDS: ENOXAPARIN 40 MG/0.4 ML SQ SCH (08:23)
[2021-06-14] MEDS: GABAPENTIN 100 MG CAP PO SCH ×3 (08:23→20:32)
[2021-06-14] MEDS ORDERED: POTASSIUM CL SA 10 MEQ TAB PO ONE (09:00)
[2021-06-14] MEDS: HYDROCODONE/APAP 7.5/325 MG TAB PO PRN ×2 (09:16→22:00)
[2021-06-14] MEDS: VANCOMYCIN 1 GM in NA CHLORIDE 0.9% 250 ML IVPB SCH (21:00)
[2021-06-15 06:45] LABS: Potassium 3.8 mmol/L (3.5-5.1)
--- NOTE | 2021-06-15 07:41 | P.PN ---
Subjective Date of Service: 06/15/21 Primary Care Provider: Dr. Lowe Chief Complaint: BLE Cellulitus Subjective: No new changes, Improving Physical Examination - Vital Signs Temperature: 98 F Blood Pressure: 102/56 Pulse: 76 Respirations: 94 Pulse Ox (%): 94 - Physical Exam General: Alert, Oriented x3 HEENT: Atraumatic, Normocephalic Neck: Supple Respiratory: Normal air movement Cardiovascular: Regular rate/rhythm, Normal S1 S2 Gastrointestinal: Soft and benign Integumentary: Skin breakdown, Skin lesion Neurological: Normal speech - Studies Medications List Reviewed: Yes Assessment And Plan - Plan Assessment: Cellulitis Leg Pain DM 2 Hyperlipidemia Hypertension Plan: Continue with plan of care as mentioned below: 1. Continue with IV antibiotic x 6 weeks 2. Continue with local wound care 3. Wounds debrided, routine wound care as per surgeon and wound care team. 4. Diet as tolerated; Hep-Lock IV pending surgery 5. Monitor CBC 6. Strict blood sugar monitoring 7. Pain control as needed. 8. Pain control meds changed to oral [place]. we will continue gabapentin for better neuropathy management. 9. GI and DVT prophylaxis
[2021-06-15] MEDS ORDERED: CEFTRIAXONE 2000 MG/VIAL ONE (08:16)
[2021-06-15] MEDS: CEFTRIAXONE 2,000 MG in NA CHLORIDE 0.9% 100 ML IV SCH (08:18)
[2021-06-15] MEDS ORDERED: NA CHLORIDE 0.9% 100 ML ONE (08:18)
[2021-06-15] MEDS: COLLAGENASE 30 GM OINTMENT TOP SCH (08:18)
[2021-06-15] MEDS: ENOXAPARIN 40 MG/0.4 ML SQ SCH (08:19)
[2021-06-15] MEDS: SODIUM HYPOCHLORITE 0.125% TOP SCH (08:20)
[2021-06-15] MEDS: CALCIUM CARB 500MG/VIT D 200 IU TAB PO SCH ×2 (08:22→19:22)
[2021-06-15] MEDS: GABAPENTIN 100 MG CAP PO SCH ×3 (08:23→19:22)
[2021-06-15] MEDS: VANCOMYCIN 0.75 GM in NA CHLORIDE 0.9% 250 ML IVPB SCH (09:49)
[2021-06-15] MEDS ORDERED: POTASSIUM CL SA 10 MEQ TAB PO ONE (10:42)
--- NOTE | 2021-06-15 17:22 | P.PN ---
Subjective Date of Service: 06/13/21 Primary Care Provider: Dr. Lowe Chief Complaint: BLE Cellulitus Subjective: Improving (pain improving, no acute issues) Physical Examination - Vital Signs Temperature: 98 F Blood Pressure: 102/56 Pulse: 76 Respirations: 94 Pulse Ox (%): 94 - Physical Exam General: Alert, Cooperative Respiratory: Clear to auscultation bilaterally Integumentary: Other (bilateral lower extremity wounds continue to improve, no infection) - Studies Medications List Reviewed: Yes Assessment And Plan - Current Problems (Diagnosis) (1) Venous stasis ulcer limited to breakdown of skin without varicose veins Current Visit: Yes Status: Acute Plan: Bilateral lower extremity venous stasis ulcers - continue antibiotics - continue local wound care with daily dressing changes, keep xeroform to exposed tendons, and damp to dry dressings, other wounds to be covered with Vashe / Santyl daily - continue medical management (2) Exposed orthopaedic hardware Current Visit: Yes Status: Acute
--- NOTE | 2021-06-15 17:23 | P.PN ---
Subjective Date of Service: 06/15/21 Primary Care Provider: Dr. Lowe Chief Complaint: BLE Cellulitus Subjective: Improving Physical Examination - Vital Signs Temperature: 98 F Blood Pressure: 102/56 Pulse: 76 Respirations: 94 Pulse Ox (%): 94 - Physical Exam General: Alert, Cooperative Integumentary: Other (bilateral lower extremity wounds continue to improve, no infection) - Studies Medications List Reviewed: Yes Assessment And Plan - Current Problems (Diagnosis) (1) Venous stasis ulcer limited to breakdown of skin without varicose veins Current Visit: Yes Status: Acute Plan: Bilateral lower extremity venous stasis ulcers - continue antibiotics - continue local wound care with daily dressing changes, keep xeroform to exposed tendons, and damp to dry dressings, other wounds to be covered with Vashe / Santyl daily - continue medical management (2) Exposed orthopaedic hardware Current Visit: Yes Status: Acute
--- NOTE | 2021-06-15 17:23 | P.PN ---
Subjective Date of Service: 06/14/21 Primary Care Provider: Dr. Lowe Chief Complaint: BLE Cellulitus Physical Examination - Vital Signs Temperature: 98 F Blood Pressure: 102/56 Pulse: 76 Respirations: 94 Pulse Ox (%): 94 - Physical Exam General: Alert, Cooperative (bilateral lower extremity wounds continue to improve, no infection) - Studies Medications List Reviewed: Yes Assessment And Plan - Current Problems (Diagnosis) (1) Venous stasis ulcer limited to breakdown of skin without varicose veins Current Visit: Yes Status: Acute Plan: Bilateral lower extremity venous stasis ulcers - continue antibiotics - continue local wound care with daily dressing changes, keep xeroform to exposed tendons, and damp to dry dressings, other wounds to be covered with Vashe / Santyl daily - continue medical management (2) Exposed orthopaedic hardware Current Visit: Yes Status: Acute
[2021-06-15] MEDS: HYDROCODONE/APAP 7.5/325 MG TAB PO PRN (19:22)
[2021-06-16 05:51] LABS: Potassium 3.8 mmol/L (3.5-5.1)
[2021-06-16] MEDS ORDERED: CEFTRIAXONE 2000 MG/VIAL ONE (07:20)
[2021-06-16] MEDS: ENOXAPARIN 40 MG/0.4 ML SQ SCH (07:58)
[2021-06-16] MEDS: CALCIUM CARB 500MG/VIT D 200 IU TAB PO SCH (07:58)
[2021-06-16] MEDS: GABAPENTIN 100 MG CAP PO SCH ×2 (07:58→13:08)
[2021-06-16] MEDS: COLLAGENASE 30 GM OINTMENT TOP SCH (07:59)
[2021-06-16] MEDS: SODIUM HYPOCHLORITE 0.125% TOP SCH (07:59)
[2021-06-16] MEDS ORDERED: POTASSIUM CL SA 10 MEQ TAB PO ONE (09:00)
[2021-06-16] MEDS: CEFTRIAXONE 2,000 MG in NA CHLORIDE 0.9% 100 ML IV SCH (09:12)
[2021-06-16] MEDS: VANCOMYCIN 0.75 GM in NA CHLORIDE 0.9% 250 ML IVPB SCH (09:12)
[2021-06-16 10:46] VITALS: O2SAT 95
[2021-06-16 12:32] VITALS: BP 115/56; TEMP 97.7
--- NOTE | 2021-06-16 15:34 | PN ---
Subjective: The patient is a 80-year-old female, lying in bed. No new acute event. Chart reviewed. Objective: Vital Signs: Temperature 97.8, pulse 70, respirations 18, blood pressure 121/62. Lungs: Basal crackles. Heart: S1, S2. Regular. Abdomen: Soft, nontender. Bowel sounds present. Extremity: Bilateral leg and left foot wound noted. Tendons are exposed with some slough noted on a ll wounds. Laboratory Data: WBC 4.5, hemoglobin 8.7, platelets are 181. Chemistry shows sodium 141, potassium 3.8, chloride 110, bicarb 28, BUN 20, creatinine 0.9, glucose is 81. Micro data is growing MRSA and Citrobacter freundii in the left foot wound. The patient is currently on Rocephin and vancomycin. Assessment And Plan: A 80-year-old female with left foot wound and exposed tendons. We will recomme nd to apply Xeroform. Lower extremity venous stasis ulcer was also recommend to apply, Xeroform befo re applying Kerlix. Continue IV antibiotic for methicillin-resistant Staphylococcus aureus infection and Citrobacter. Continue Rocephin for at least 3-4 weeks. Recommend to keep leg elevated and maldonado sfer the patient to long-term acute care for IV antibiotic and wound care. We will follow the patien t as needed. Case discussed with the hospitalist. STACIE/MODHaley Voice ID: [id number] Report ID: [id number]
--- NOTE | 2021-07-07 02:58 | P.DS ---
Discharge Date: 06/16/21 Primary Care Provider: Dr. 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 However EMS stated that there was no evidence of that. Patient was seen by wound care yesterday and had her dressing changed. In the ED, wounds appear erythematous and infected. X-rays did not show any evidence of osteomyelitis. WBC within normal limits. Other labs significant for creatinine 1.39 (unsure of baseline), hemoglobin 10 calcium 8.2, AST 62, alk phos 138, BNP 735. Patient does have a history of memory loss/dementia and she is slightly confused in the ED. She does not understand why she is being admitted to the hospital however explained to her multiple times. She received a Tdap shot, normal saline, and Zosyn in the ED. Will admit for further evaluation and treatment. Hospital Course: Patient was taken to the OR and patient had removal of hardware. Patient was given IV antibiotics. Patient's clinical symptoms are improving. Patient will continue with IV antibiotics at the nursing facility. Patient will follow-up as an outpatient with general surgery and orthopedics. Vital Signs/Physical Exam: Temp Pulse Resp BP Pulse Ox 97.7 F 70 18 115/56 L 94 06/16/21 12:00 06/16/21 12:00 06/16/21 12:00 06/16/21 12:00 06/16/21 12:00 General: Alert, In no apparent distress, Oriented x3 Laboratory Data at Discharge: WBC 4.5 K/uL (4.3-10.9) 06/13/21 12:05 Hgb 8.7 g/dL (12.0-15.0) L 06/13/21 12:05 Hct 25.9 % (36.0-45.0) L 06/13/21 12:05 Plt Count 181 K/uL (152-406) 06/13/21 12:05 PT 12.1 SECONDS (9.5-12.5) 06/09/21 06:00 INR 1.10 06/09/21 06:00 APTT 29.0 SECONDS (24.3-36.9) 06/09/21 06:00 Sodium 141 mmol/L (136-145) 06/16/21 05:25 Potassium 3.8 mmol/L (3.5-5.1) 06/16/21 05:25 BUN 20 mg/dL (7-18) H 06/16/21 05:25 Creatinine 0.98 mg/dL (0.55-1.3) 06/16/21 05:25 Glucose 81 mg/dL (74-106) 06/16/21 05:25 Magnesium 1.8 mg/dL (1.8-2.4) 06/09/21 06:00 Total Bilirubin 0.4 mg/dL (0.2-1.0) 06/09/21 06:00 AST 38 U/L (15-37) H 06/09/21 06:00 ALT 21 U/L (12-78) 06/09/21 06:00 Alkaline Phosphatase 107 U/L (45-117) 06/09/21 06:00 Triglycerides 77 mg/dL (<150) 06/04/21 04:44 Cholesterol 72 mg/dL (<200) 06/04/21 04:44 HDL Cholesterol 24 mg/dL (40-60) L 06/04/21 04:44 Cholesterol/HDL Ratio 3.00 06/04/21 04:44 Home Medications: Acetaminophen 500 mg PO Q6HP PRN 04/14/21 Mirabegron [Myrbetriq] 50 mg PO DAILY 04/14/21 Clopidogrel Bisulfate [Plavix*] 75 mg PO DAILY 06/09/21 Collagenase [Santyl Ointment*] 1 appl TOP DAILY 06/09/21 hydroCHLOROthiazide [Hydrochlorothiazide*] 12.5 mg PO DAILY 06/09/21 Ceftriaxone [Rocephin] 2,000 mg IV DAILY #14 vial 06/16/21 Vancomycin/Water For Inj (Peg) [Vancomycin 750 mg/150 ml Bag] 750 mg IV DAILY #14 piggyback 06/16/21 New Medications: Ceftriaxone [Rocephin] 2,000 mg IV DAILY #14 vial Vancomycin/Water For Inj (Peg) [Vancomycin 750 mg/150 ml Bag] 750 mg IV DAILY # 14 piggyback Physician Discharge Instructions: -DC IV and DC custodial -Follow-up with PCP in 1 to 2 weeks -Follow-up with Surgery and orthopedic surgery in 1 to 2 weeks -Please call Dr. Mejia at [phone] if any questions regarding hospital stay -Please call nursing station at [phone] if any nursing or medication question -Continue local wound care with daily dressing changes, keep xeroform to exposed tendons, and damp to dry dressings, other wounds to be covered with Vashe / Santyl daily -Return to the emergency room if symptoms worsen Diet: AHA Activity: Fall precautions Followup: Shahriar Adame MD [ACTIVE - CAN ADMIT] - 1 Week (Surgeon- very important to follow up with Dr. Adame) Dell Covington MD [ACTIVE - CAN ADMIT] - (Call to schedule appointment) Time spent managing pt's care (in minutes): 35
== END 2021-06-16 14:50 | DRG 463 ==
LOC: ER 20:48 → ERHOLD 23:52 → 2ND 06-04 02:49
PROVIDERS: ADMIT Hospitalist; ATTEND Hospitalist
PROC: 02HV33Z Insertion of Infusion Device into Superior Vena Cava, Percutaneous Approach (ICD-10-PCS; 2021-06-07)
PROC: 3E04329 Introduction of Other Anti-infective into Central Vein, Percutaneous Approach (ICD-10-PCS; 2021-06-07)
PROC: 0SPF04Z Removal of Internal Fixation Device from Right Ankle Joint, Open Approach (ICD-10-PCS; 2021-06-11)
PROC: 0JBR0ZZ Excision of Left Foot Subcutaneous Tissue and Fascia, Open Approach (ICD-10-PCS; principal; 2021-06-11 12:00)
PROC: 0JBQ0ZZ Excision of Right Foot Subcutaneous Tissue and Fascia, Open Approach (ICD-10-PCS; 2021-06-11 12:00)
DX: M86.171 Other acute osteomyelitis, right ankle and foot (principal); G92.8 Other toxic encephalopathy; M86.172 Other acute osteomyelitis, left ankle and foot; I96 Gangrene, not elsewhere classified; I87.313 Chronic venous hypertension (idiopathic) with ulcer of bilateral lower extremity; T84.293A Other mechanical complication of internal fixation device of bones of foot and toes, initial encounter; L03.116 Cellulitis of left lower limb; L03.115 Cellulitis of right lower limb; E44.0 Moderate protein-calorie malnutrition; B95.62 Methicillin resistant Staphylococcus aureus infection as the cause of diseases classified elsewhere; I87.2 Venous insufficiency (chronic) (peripheral); I89.0 Lymphedema, not elsewhere classified; F32.A Depression, unspecified; F03.90 Unspecified dementia, unspecified severity, without behavioral disturbance, psychotic disturbance, mood disturbance, and anxiety; D64.9 Anemia, unspecified; E78.5 Hyperlipidemia, unspecified; I10 Essential (primary) hypertension; Z20.822 Contact with and (suspected) exposure to COVID-19; Z68.25 Body mass index [BMI] 25.0-25.9, adult; Z23 Encounter for immunization
CPT/HCPCS: 11042; 11045; 36415; 36569; 71045; 78315; 80048; 80053; 80061; 80076; 80202; 81003; 81015; 83735; 83880; 84132; 84145; 84439; 84443; 84484; 85025; 85610; 85730; 87040; 87070; 87077; 87086; 87088; 87176; 87186; 87205; 88300; 90471; 90714; 93005; 93970; 96365; 96366; 96375; 97110; 97116; 97161; 97530; 99251; 99285; A9503; J0696; J1170; J1650; J2270; J2405; J2543; J2704; J3010; J3370; J3480; J3590; J7030; J7050; J7120; P9047; U0003

== ENCOUNTER 2021-07-24 11:15 | Emergency (ER) | payer OTHER ==
--- OUTSIDE RECORDS SUMMARY | 2021-07-24 11:17 | XMS REPORT | Continuity of Care Document ---
:1940 Author Organization [facility] t Address [address] [place] [address] Care Team Providers Name Role Phone MARY Attending Clinician Unavailable Payers Payer Name Policy Type Policy Number Effective Date Expiration Date S ource [employer] MEDICARE [id number] 2021 2021 ADVANTAGE HMO 00:00:00 00:00:00 Problems [...] 00:00:00 non-user Sex Assigned At [birth year] [place] [facility] 00:00:00 00:00:00 Smoking Status Start Date Stop Date Source Never smoked tobacco [facility] Medications Ordered Filled Start Stop Current [...] time. tablet Mirabegron Yes 1{tbl} 1 tablet. [facility] 1-05 Health (Myrbetriq) 00:00: 50 MG 00 tablet sustained-r elease 24 hour Procedures This patient has no known procedures. Encounters Start End Encounter Admission Attending Care Care Encounter Source Date/Time Date/Time Type Type Clinicians Facility Department ID 2021-06-03 Outpatient [facility] [id number] [place] 07:51:[address] [place] [address] 2021-06-02 Outpatient [facility] [id number] [place] 10:25:35 RAYMOND [id number] [facility] 2021-05-30 [facility]patient [facility] [id number] PA 10:21:15 JORGE [id number] [facility] 2021-05-29 Outpatient [facility] [id number] PA 14:19:57 RAYMOND [id number] [facility] 2021-03-26 Outpatient [facility] [id number] Common 14:26:[id number] [facility] 2021-03-26 Outpatient [facility] [id number] Common 14:24:[id number] [facility] 2021-06-02 2021-06-02 Office JARED Castro [facility] [id number] [place] 10:00:00 10:15:00 Visit Jorge HERZOG [id number] oJse F BRADLEY [id number] [facility] [id number] Results This patient has no known results.
[2021-07-24] MEDS ORDERED: LIDOCAINE 1% 20 ML MDV ONE (11:32)
--- NOTE | 2021-07-24 11:50 | RAD REPORT ---
EXAM DESCRIPTION: CT - [id number] - 07/24/2021 11:40 am CLINICAL HISTORY: Trauma, head and neck injury. head injury, neck pain COMPARISON: No comparisons TECHNIQUE: Axial 5 mm thick images of the head were obtained. Axial 2 mm thick images of the cervical spine were obtained with sagittal and coronal reconstruction images generated and reviewed. All CT scans are performed using dose optimization technique as appropriate and may include automated exposure control or mA/KV adjustment according to patient size. FINDINGS: CT HEAD WITHOUT CONTRAST: No acute hemorrhage, hydrocephalus or extra-axial collection is identified.Advanced generalized brain atrophy is present with advanced periventricular and deep white matter chronic microvascular ischemi c changes.No areas of brain edema or midline shift. The paranasal sinuses and mastoids are clear.The calvarium is intact. Moderate right posterior scalp hematoma. CT CERVICAL SPINE WITHOUT CONTRAST: No fracture or subluxation.Moderate mid and lower cervical degenerative changes.No prevertebral soft tissues swelling is identified. IMPRESSION: No acute intracranial or cervical spine findings.
[2021-07-24] MEDS ORDERED: LIDOCAINE 1% W/EPI 1:100,000 MDV 20 ML VIAL ONE (11:51)
[2021-07-24] MEDS ORDERED: ACETAMINOPHEN 325 MG TABLET ONE (13:40)
--- NOTE | 2021-07-24 13:53 | EDPHYS ---
Physician Documentation [facility] Name: Jami Woodruff Age: 80 yrs Sex: Female : 1940 Arrival Date: 07/24/2021 Time: 11:21 Bed 23 Private MD: ED Physician Bryce Perez HPI: 07/24 11:30 This 80 yrs old Female presents to ER via EMS with complaints of head injury. jmm 11:30 The patient or guardian reports injury, pain. The complaints affect the right side of jmm the back of head. Onset: The symptoms/episode began/occurred acutely, just prior to arrival. Is a 80-year-old female with history of venous insufficiency that presents emerged part with complaints of head injury. Patient states while getting out of his wheelchair, for slipped off the floor, hitting the back of her head against the bed frame. Denies LOC. Denies neck pain, denies lower back pain.. Historical: - Allergies: 11:23 No Known Allergies; [facility] - Home Meds: 13:06 clopidogrel 75 mg Oral tab [Active]; hydrochlorothiazide 12.5 mg Oral cap [Active]; mariee Myrbetriq 50 mg Oral Tb24 1 tab once daily [Active]; Santyl 250 unit/gram Topical oint [Active]; Tylenol-Codeine #4 300-60 mg Oral tab daily [Active]; Zofran Oral [Active]; - PMHx: 11:23 venous insufficiency; [facility] - Immunization history:: Adult Immunizations up to date. - Social history:: Smoking status: Patient denies any tobacco usage or history of. ROS: 11:30 Constitutional: Negative for fever, chills, and weight loss, Cardiovascular: Negative jmm for chest pain, palpitations, and edema, Respiratory: Negative for shortness of breath, cough, wheezing, and pleuritic chest pain. 11:30 Neuro: Positive for headache. 11:30 All other systems are negative. Exam: 11:30 Constitutional: This is a well developed, well nourished patient who is awake, alert, jmm and in no acute distress. 11:30 Eyes: EOMI, no conjunctival erythema appreciated ENT: Moist Mucus Membranes 11:30 Chest/axilla: Normal chest wall appearance and motion. Cardiovascular: Regular rate and rhythm. No edema appreciated Respiratory: Normal respirations, no respiratory distress appreciated Abdomen/GI: Non distended, soft Back: Normal ROM 11:30 Head/face: Bleeding hematoma noted to the posterior scalp. 11:30 Neck: C-spine: vertebral tenderness, is not appreciated. 11:30 Musculoskeletal/extremity: ROM: intact in all extremities. 11:30 Skin: Appearance: Color: normal in color. 11:30 Neuro: Orientation: is normal, Mentation: is normal, Memory: is normal. 11:30 Psych: Behavior/mood is pleasant, cooperative. Vital Signs: 11:20 BP 123 / 59; Pulse 80; Resp 16; Temp 97.7(O); Pulse Ox 100% ; Weight 72.57 kg; Height 5 jh6 ft. 5 in. (165.10 cm); Pain 6/10; 11:20 Body Mass Index 26.63 (72.57 kg, 165.10 cm) jh6 Laceration: 19:06 Wound Repair of 1cm ( 0.4in ) subcutaneous laceration to right parietal area. Distal jmm neuro/vascular/tendon intact. Anesthesia: Local anesthetic administered with 2 mls of 1% lidocaine w/ Epi. Wound prep: Simple cleansing with betadine by me. Skin closed with 1 3-0 Prolene using figure eight. Patient tolerated well. MDM: 11:[address] [facility] 13:38 Data reviewed: vital signs, nurses notes. Counseling: I had a detailed discussion with jm the patient and/or guardian regarding: the historical points, exam findings, and any diagnostic results supporting the discharge/admit diagnosis, lab results. 13:52 Counseling: I had a detailed discussion with the patient and/or guardian regarding: the jmm need for outpatient follow up, to return to the emergency department if symptoms worsen or persist or if there are any questions or concerns that arise at home. 13:52 ED course: Bleeding controlled with pressure dressing. Given head injury return [facility] precautions. . 07/24 11:24 Order name: CT Head C Spine; Complete Time: 11:54 [facility] Administered Medications: 12:00 Drug: Lidocaine-Epinephrine -1%: (1:100,000) 20 ml Volume: 20 ml; Route: Infiltration; [facility] 13:39 Drug: Tylenol 650 mg Route: PO; mariee 13:39 Follow up: Response: No adverse reaction mariee Disposition Summary: 07/24/21 13:53 Discharge Ordered Location: Home jm Condition: Stable jm Diagnosis - Unspecified injury of head, initial encounter jmm - Scalp Laceration [facility] Followup: [facility] - With: Private Physician - When: 2 - 3 days - Reason: Recheck today's complaints, Continuance of care, Re-evaluation by your physician Discharge Instructions: - Discharge Summary Sheet jmm - Head Injury, Adult jmm - Facial Laceration [facility] Forms: - Medication Reconciliation Form [facility] - Thank You Letter [facility] - Antibiotic Education jmm - Prescription Opioid Use [facility] Signatures: Dispatcher [employer] EDBryce Samaniego MD MD cha Mickail, Joel, PA PA jmm Hastedt, Jennifer, RN RN jh6 Maria Eugenia Nevarez RN GARRETT mariee
--- NOTE | 2021-07-24 13:53 | ER ---
Nurse's Notes [facility] Name: Jami Woodruff Age: 80 yrs Sex: Female : 1940 Arrival Date: 07/24/2021 Time: 11:21 Bed 23 Private MD: Diagnosis: Unspecified injury of head, initial encounter;Scalp Laceration Presentation: 07/24 11:20 Chief complaint: Patient states: attempting to get up from wheelchair and fell back. pt jh6 hit cak of head on bed frame. - loc and c/o pain to back of head . 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 11:20 Coronavirus screen: Vaccine status: Patient reports receiving the 2nd dose of the covid jh6 vaccine. Ebola Screen: Patient negative for fever greater than or equal to 101.5 degrees Fahrenheit, and additional compatible Ebola Virus Disease symptoms Patient denies exposure to infectious person. Patient denies travel to an Ebola-affected area in the 21 days before illness onset. Initial Sepsis Screen: Does the patient meet any 2 criteria? RR > 20 per min. No. Patient's initial sepsis screen is negative. Does the patient have a suspected source of infection? No. Patient's initial sepsis screen is negative. Risk Assessment: Do you want to hurt yourself or someone else? Patient reports no desire to harm self or others. Onset of symptoms was July 24, 2021. 11:20 Method Of Arrival: EMS: [facility] 11:24 Acuity: MARTIR 3 [facility] Triage Assessment: 11:27 General: Appears in no apparent distress. Behavior is calm, cooperative. [facility] Historical: - Allergies: 11:23 No Known Allergies; [facility] - Home Meds: 13:06 clopidogrel 75 mg Oral tab [Active]; hydrochlorothiazide 12.5 mg Oral cap [Active]; mariee Myrbetriq 50 mg Oral Tb24 1 tab once daily [Active]; Santyl 250 unit/gram Topical oint [Active]; Tylenol-Codeine #4 300-60 mg Oral tab daily [Active]; Zofran Oral [Active]; - PMHx: 11:23 venous insufficiency; [facility] - Immunization history:: Adult Immunizations up to date. - Social history:: Smoking status: Patient denies any tobacco usage or history of. Screenin:23 Abuse screen: Denies threats or abuse. Nutritional screening: No deficits noted. [facility] Tuberculosis screening: No symptoms or risk factors identified. Fall Risk Gait- Impaired (20 pts.). Assessment: 11:21 General: Appears in no apparent distress. Behavior is calm, cooperative. Pain: [facility] Complains of pain in scalp Pain currently is 6 out of 10 on a pain scale. Quality of pain is described as throbbing, Pain began suddenly, Is continuous, Aggravated by pressure to head. Neuro: No deficits noted. Level of Consciousness is awake, alert, obeys commands, Oriented to person, place, time. Cardiovascular: No deficits noted. Respiratory: No deficits noted. Derm: Skin laceration to back of head Wound noted scalp. 13:07 Derm: Wound noted. Injury Description: Laceration sustained to right parietal area is mariee 2.6 to 7.5 cm long, bleeding moderately. Vital Signs: 11:20 BP 123 / 59; Pulse 80; Resp 16; Temp 97.7(O); Pulse Ox 100% ; Weight 72.57 kg; Height 5 [facility] ft. 5 in. (165.10 cm); Pain 6/10; 11:20 Body Mass Index 26.63 (72.57 kg, 165.10 cm) [facility] ED Course: 11:20 Bandage applied. Pressure dressing applied. 6 11:21 Patient arrived in ED. [facility] 11:23 Johnny Hernández PA is PHCP. [facility] 11:23 Bryce Perez MD is Attending Physician. [facility] 11:23 No provider procedures requiring assistance completed. [facility] 11:24 Triage completed. [facility] 11:26 Maria Eugenia Nevarez, RN is Primary Nurse. mariee 11:28 Placed in gown. Bed in low position. Call light in reach. Side rails up X 1. 6 11:[address] 6 11:42 CT Head C Spine In Process Unspecified. EDMS 13:06 Arm band placed on right wrist. mariee Administered Medications: 12:00 Drug: Lidocaine-Epinephrine -1%: (1:100,000) 20 ml Volume: 20 ml; Route: Infiltration; [facility] 13:39 Drug: Tylenol 650 mg Route: PO; mariee 13:39 Follow up: Response: No adverse reaction mariee Medication: 13:06 VIS not applicable for this client. mariee Outcome: 13:53 Discharge ordered by . misael 14:58 Patient left the ED. ld1 Signatures: Dispatcher [employer] EDJohnny Croft PA PA jmm Dibbern, Lauren RN RN ld1 Vidya Daniels RN RN jh6 Maria Eugenia Nevarez RN RN mariee
[2021-07-24 15:05] VITALS: BP 123/59; TEMP 97.7; O2SAT 100
== END 2021-07-24 14:58 | disposition home or self-care (01) ==
LOC: ER 11:15
PROC: 0JQ00ZZ Repair Scalp Subcutaneous Tissue and Fascia, Open Approach (ICD-10-PCS; principal; 2021-07-24)
DX: S01.01XA Laceration without foreign body of scalp, initial encounter (principal); W01.198A Fall on same level from slipping, tripping and stumbling with subsequent striking against other object, initial encounter; I87.2 Venous insufficiency (chronic) (peripheral)
CPT/HCPCS: 70450; 72125; 99284

== ENCOUNTER 2021-07-24 15:41 | Emergency (ER) | payer OTHER ==
--- OUTSIDE RECORDS SUMMARY | 2021-07-24 15:45 | XMS REPORT | Continuity of Care Document ---
:1940 Author Organization [facility] t Address [address] [place] [address] Care Team Providers Name Role Phone MARY Attending Clinician Unavailable Payers Payer Name Policy Type Policy Number Effective Date Expiration Date S ource HU[employer]NA MEDICARE [id number] 2021 2021 ADVANTAGE HMO 00:00:00 00:00:00 Problems Condition Condition Condition Status Onset Resolution Last Treating Co mments Source Name Details Category Date Date Treatment Clinician Date Venous Venous Disease Active [facility] st[facility] stasis -[facility] 00:00: 00 Varicose Varicose Disease Active [...] 00:00:00 non-user Sex Assigned At [birth year] [facility] 00:00:[facility] 00:00:00 Smoking Status Start Date Stop Date Source Never smoked tobacco [place] [facility] Medications Ordered Filled Start Stop Current Ordering [...] time. tablet Mirabegron Yes 1{tbl} 1 tablet. [place] [facility] 1-05 [facility] (Myrbetriq) 00:00: 50 MG 00 tablet sustained-r elease 24 hour Procedures This patient has no known procedures. Encounters Start End Encounter Admission Attending Care Care Encounter Source Date/Time Date/Time Type Type Clinicians Facility Department ID 2021-06-03 Outpatient [facility] [id number] [place] 07:51:[address] [place] [address] 2021-06-02 Outpatient [facility] [id number] [place] 10:25:35 [place] [id number] [facility] 2021-05-30 Outpatient [facility] [id number] [place] 10:21:15 JORGE [id number] [facility] 2021-05-29 Outpatient [facility] [id number] [place] 14:19:57 [place] [id number] [facility] 2021-03-26 Outpatient [facility] [id number] [place] 14:26:11 [id number] [facility] 2021-03-26 Outpatient [facility] [id number] [place] 14:24:29 [id number] [facility] 2021-06-02 2021-06-02 Office JARED Castro [facility] [id number] [place] 10:00:00 10:15:00 Visit Jorge HERZOG [id number] Jose F BRADLEY [id number] [facility] [id number] 1 Results This patient has no known results.
--- NOTE | 2021-07-24 17:15 | RAD REPORT ---
EXAM DESCRIPTION: RAD - Lumbar Spine 3 Views - 07/24/2021 4:46 pm CLINICAL HISTORY: Back pain FINDINGS: No fracture or dislocation is seen. Osteoporosis. 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
--- NOTE | 2021-07-24 17:48 | EDPHYS ---
Physician Documentation [facility] Name: Jami Woodruff Age: 80 yrs Sex: Female : 1940 Arrival Date: 07/24/2021 Time: 15:44 Bed 23 Private MD: ED Physician Bryce Perez HPI: 07/24 15:44 This 80 yrs old Female presents to ER via EMS with complaints of Wound Recheck. [facility] 15:44 This is a 80-year-old female with history of venous insufficiency the presents emerged [facility] department with complaints of bleeding wound. Which was repaired earlier today. assisted also noticed some bruising on her lower back most likely from the fall earlier today.. Historical: - Allergies: 15:46 No Known Allergies; ld1 - Home Meds: 15:46 clopidogrel 75 mg Oral tab [Active]; ld1 - PMHx: 15:46 venous insufficiency; ld1 - Immunization history:: Adult Immunizations up to date. - Social history:: Smoking status: Patient denies any tobacco usage or history of. Patient/guardian denies using alcohol. ROS: 15:44 Constitutional: Negative for fever, chills, and weight loss, Cardiovascular: Negative [facility] for chest pain, palpitations, and edema, Respiratory: Negative for shortness of breath, cough, wheezing, and pleuritic chest pain, Abdomen/GI: Negative for abdominal pain, nausea, vomiting, diarrhea, and constipation, Neuro: Negative for headache, weakness, numbness, tingling, and seizure. 15:44 All other systems are negative. Exam: 15:44 Constitutional: This is a well developed, well nourished patient who is awake, alert, jmm and in no acute distress. Head/Face: atraumatic. Eyes: EOMI, no conjunctival erythema appreciated ENT: Moist Mucus Membranes Neck: Trachea midline, Supple Chest/axilla: Normal chest wall appearance and motion. Cardiovascular: Regular rate and rhythm. No edema appreciated Respiratory: Normal respirations, no respiratory distress appreciated Abdomen/GI: Non distended, soft 15:44 Head/face: No active bleeding appreciated to the posterior scalp. 15:44 Back: Ecchymosis noted to lower back, nontender to palpation. 15:44 Musculoskeletal/extremity: ROM: intact in all extremities. Vital Signs: 15:45 BP 111 / 73; Pulse 76; Resp 18; Temp 97.9(TE); Pulse Ox 99% on R/A; Weight 49.9 kg; ld1 Height 5 ft. 2 in. (157.48 cm); Pain 0/10; 17:36 BP 109 / 63; Pulse 86; Resp 18; Pulse Ox 99% on R/A; ld1 15:45 Body Mass Index 20.12 (49.90 kg, 157.48 cm) ld1 MDM: 15:44 Patient medically screened. [facility] 15:44 Data reviewed: vital signs, nurses notes. Counseling: I had a detailed discussion with misael the patient and/or guardian regarding: the historical points, exam findings, and any diagnostic results supporting the discharge/admit diagnosis, the need for outpatient follow up, to return to the emergency department if symptoms worsen or persist or if there are any questions or concerns that arise at home. 07/24 15:56 Order name: Lumbar Spine (3 Views) XRAY; Complete Time: 17:20 [facility] 07/24 15:44 Order name: Wound Care; Complete Time: 15:49 [facility] Administered Medications: No medications were administered Disposition Summary: 07/24/21 17:47 Discharge Ordered Location: Home [facility] Condition: Stable [facility] Diagnosis - Wound check [facility] - Ecchymosis of the lower back [facility] Followup: [facility] - With: Private Physician - When: 2 - 3 days - Reason: Recheck today's complaints, Continuance of care, Re-evaluation by your physician Discharge Instructions: - Discharge Summary Sheet jm - Hematoma [facility] Forms: - Medication Reconciliation Form [facility] - Thank You Letter [facility] - Antibiotic Education [facility] - Prescription Opioid Use [facility] Signatures: Dispatcher [employer] Johnny Abarca PA PA jmm Dibbern, Lauren, RN RN ld1
--- NOTE | 2021-07-24 17:48 | ER ---
Nurse's Notes [facility] Name: Jami Woodruff Age: 80 yrs Sex: Female : 1940 Arrival Date: 07/24/2021 Time: 15:44 Bed 23 Private MD: Diagnosis: Wound check;Ecchymosis of the lower back Presentation: 07/24 15:45 Chief complaint: EMS states: Pt c/o bleeding from stitches. Pt was discharged 30 ld1 minutes prior to EMS arrival. [facility] sent pt back check incision site. Coronavirus screen: At this time, the client does not indicate any symptoms associated with coronavirus-19. Ebola Screen: No symptoms or risks identified at this time. Initial Sepsis Screen: Does the patient meet any 2 criteria? No. Patient's initial sepsis screen is negative. Does the patient have a suspected source of infection? No. Patient's initial sepsis screen is negative. Risk Assessment: Do you want to hurt yourself or someone else? Patient reports no desire to harm self or others. Onset of symptoms was July 24, 2021. 15:45 Method Of Arrival: EMS: [facility] ld1 15:45 Acuity: MARTIR 4 ld1 Triage Assessment: 15:46 General: Appears in no apparent distress. comfortable, Behavior is calm, cooperative, ld1 appropriate for age. Pain: Denies pain. EENT: No deficits noted. No signs and/or symptoms were reported regarding the EENT system. Neuro: Level of Consciousness is awake, alert, obeys commands, Oriented to person, place, time, situation. Cardiovascular: Capillary refill < 3 seconds Patient's skin is warm and dry. Respiratory: Airway is patent Respiratory effort is even, unlabored. GI: Abdomen is flat, non-distended. : No signs and/or symptoms were reported regarding the genitourinary system. Derm: No signs and/or symptoms reported regarding the dermatologic system. Musculoskeletal: No signs and/or symptoms reported regarding the musculoskeletal system. Historical: - Allergies: 15:46 No Known Allergies; ld1 - Home Meds: 15:46 clopidogrel 75 mg Oral tab [Active]; ld1 - PMHx: 15:46 venous insufficiency; ld1 - Immunization history:: Adult Immunizations up to date. - Social history:: Smoking status: Patient denies any tobacco usage or history of. Patient/guardian denies using alcohol. Screenin:48 Abuse screen: Denies threats or abuse. Denies injuries from another. Nutritional ld1 screening: No deficits noted. Tuberculosis screening: No symptoms or risk factors identified. Fall Risk None identified. Assessment: 15:48 Reassessment: See triage assessment. ld1 Vital Signs: 15:45 BP 111 / 73; Pulse 76; Resp 18; Temp 97.9(TE); Pulse Ox 99% on R/A; Weight 49.9 kg; ld1 Height 5 ft. 2 in. (157.48 cm); Pain 0/10; 17:36 BP 109 / 63; Pulse 86; Resp 18; Pulse Ox 99% on R/A; ld1 15:45 Body Mass Index 20.12 (49.90 kg, 157.48 cm) ld1 ED Course: 15:44 Patient arrived in ED. 15:44 Johnny Hernández PA is PHCP. [facility] 15:44 Bryce Perez MD is Attending Physician. [facility] 15:44 Joanna Avelar, RN is Primary Nurse. ld1 15:46 Triage completed. ld1 15:46 Arm band placed on right wrist. ld1 15:48 Patient has correct armband on for positive identification. Placed in gown. Bed in low ld1 position. Call light in reach. Side rails up X2. residential monitor on. Pulse ox on. NIBP on. Door closed. Noise minimized. Warm blanket given. 15:48 No provider procedures requiring assistance completed. ld1 16:48 Lumbar Spine (3 Views) XRAY In Process Unspecified. EDMS 18:06 Patient did not have IV access during this emergency room visit. ld1 Administered Medications: No medications were administered Medication: 15:48 VIS not applicable for this client. ld1 Outcome: 17:47 Discharge ordered by . [facility] 18:06 Discharged to home via wheelchair. ld1 18:06 Condition: stable 18:06 Discharge instructions given to patient, shoulder boner, Instructed on discharge instructions, follow up and referral plans. Demonstrated understanding of instructions, follow-up care. 18:06 Patient left the ED. ld1 Signatures: Dispatcher [employer] EDNJ Johnny Hernández PA PA Nina Alvarenga RN RN Dibbern, Joanna, RN RN ld1
[2021-07-24 18:12] VITALS: TEMP 97.9; O2SAT 99
[2021-07-24 18:13] VITALS: BP 109/63
== END 2021-07-24 18:06 | disposition home or self-care (01) ==
LOC: ER 15:41
DX: S01.01XD Laceration without foreign body of scalp, subsequent encounter (principal); S30.0XXA Contusion of lower back and pelvis, initial encounter; I87.2 Venous insufficiency (chronic) (peripheral)
CPT/HCPCS: 72100; 99284

== ENCOUNTER 2021-07-26 03:50 | Emergency (ER) | payer OTHER ==
--- OUTSIDE RECORDS SUMMARY | 2021-07-26 03:53 | XMS REPORT | Continuity of Care Document ---
:1940 Author Organization [facility] t Address [address] [place] [address] Care Team Providers Name Role Phone MARY Attending Clinician Unavailable Payers Payer Name Policy Type Policy Number Effective Date Expiration Date S ource HUMANA MEDICARE [id number] 2021 2021 ADVANTAGE HMO 00:00:00 00:00:00 Problems [...] Date Stop Date Source Never smoked tobacco [place] [facility] Medications Ordered Filled Start Stop Current Ordering Indication Dosage Frequency Signature Comments Components Source Medication Medication Date Date Medication? Clinician (SIG) Name Name acetaminoph 2021- Yes 1 (one) [place] en-codeine 3-30 04-10 time each Hea lth (Tylenol 00:00: 04:59 day at the #4) 300-60 00 :00 same time. MG tablet clopidogrel Yes 1{tbl} 1 tablet. [place] (Plavix) 75 3-09 Health MG tablet 00:00: 00 hydroCHLORO Yes 1 (one) [place] thiazide 3-02 time each Health (HYDRODiuri 00:00: day at the ) 12.5 MG 00 same time. tablet Mirabegron Yes 1{tbl} 1 tablet. [place] ER 1-05 [facility] (Myrbetriq) 00:00: 50 MG 00 tablet sustained-r elease 24 hour Procedures This patient has no known procedures. Encounters Start End Encounter Admission Attending Care Care Encounter Source Date/Time Date/Time Type Type Clinicians Facility Department ID 2021-06-03 Outpatient [facility] [id number] [place] 07:51:[address] [place] [address] 2021-06-02 Outpatient [facility] [id number] [place] 10:25:35 [place] [id number] [facility] 2021-05-30 Outpatient [facility] [id number] [place] 10:21:15 JORGE [id number] [facility] 2021-05-29 Outpatient [facility] [id number] [place] 14:19:57 [place] [id number] [facility] 2021-03-26 Outpatient [facility] [id number] [place] 14:26:11 [id number] [facility] 2021-03-26 Outpatient [facility] [id number] [place] 14:24:29 [id number] [facility] 2021-06-02 2021-06-02 Office JARED Castro [facility] [id number] [place] 10:00:00 10:15:00 Visit Jorge EHRZOG [id number] Jose F BRADLEY [id number] [facility] [id number] 1 Results This patient has no known results.
[2021-07-26] MEDS ORDERED: ONDANSETRON 4 MG/2 ML VIAL ONE (03:54)
[2021-07-26] MEDS ORDERED: LIDOCAINE 1% W/EPI 1:100,000 MDV 20 ML VIAL ONE (07:09)
--- NOTE | 2021-07-26 07:34 | ER ---
Nurse's Notes [facility] Name: Jami Woodruff Age: 80 yrs Sex: Female : 1940 Arrival Date: 07/26/2021 Time: 03:55 Bed 14 Private MD: Diagnosis: Fall from bed, initial encounter;Laceration, Scalp Presentation: 07/26 04:04 Chief complaint: EMS states: Fell while trying to get up from bed and hit her head ke1 against edge of the bed in wood. 04:15 Coronavirus screen: Vaccine status: Patient reports receiving the 2nd dose of the covid ke1 vaccine. Ebola Screen: No symptoms or risks identified at this time. Initial Sepsis Screen: Does the patient meet any 2 criteria? No. Patient's initial sepsis screen is negative. Does the patient have a suspected source of infection? No. Patient's initial sepsis screen is negative. Risk Assessment: Do you want to hurt yourself or someone else? Patient reports no desire to harm self or others. Onset of symptoms was July 26, 2021. 04:15 Method Of Arrival: EMS ke1 04:15 Acuity: MARTIR 3 ke1 Historical: - Allergies: 04:17 No Known Allergies; ke1 - PMHx: 04:17 venous insufficiency; ke1 - Immunization history:: Client reports receiving the 2nd dose of the Covid vaccine. - Social history:: Smoking status: Patient denies any tobacco usage or history of. Screenin:43 Abuse screen: Denies threats or abuse. Tuberculosis screening: No symptoms or risk ke1 factors identified. 07:59 Nutritional screening: No deficits noted. Fall Risk Fall in past 12 months (25 points). jd3 Gait- Weak (10 pts.). Mental Status- Oriented to own ability (0 pts). Total Acuna Fall Scale indicates High Risk Score (45 or more points). Fall prevention measures have been instituted. Side Rails Up X 2 Placed Close to Nursing Station Frequent Obs/Assessments Occuring. Primary Survey: 04:22 NO uncontrolled hemorrhage observed. A: The client is alert. Airway: patent. ke1 Breathing/Chest: Respiratory effort: spontaneous, unlabored, Breath sounds: clear, Respiratory pattern: regular. Circulation: Pulses: palpable right radial artery and left radial artery. Disability Pupils are equal, round, reactive to light and accommodation. Client is alert. Exposure/Environment: Obvious injury(ies) are noted at this time: opening on head. Reassessment Alertness and Airway: Airway Patent Breathing: Respiratory effort Spontaneous Unlabored Circulation: Disability: Pupils Pupils are equal, round, reactive to light and accomodation. Secondary Survey: 05:33 HEENT: Head Other opening on head Face No injury/deformity Eyes: No injury or deformity ke1 noted. Ears: clear Nose: clear Throat: No injury or deformity noted. Gastrointestinal: Abdomen is soft, flat. :. Musculoskeletal: Reports weakness in right leg and left leg. Injury Description: Head injury sustained to left side of the back of head. Assessment: 04:21 General: Appears in no apparent distress. Behavior is appropriate for age. Pain: Denies ke1 pain. Neuro: Level of Consciousness is awake, alert, Oriented to person, place, time, situation. Respiratory: Respiratory effort is even, unlabored, Respiratory pattern is regular, symmetrical. Injury Description:. 07:56 Reassessment: [facility] reporting they do not have a transfer van today. [employer] jd3 attempting to contact family. no answer at this time. pt pending ride for discharge. General: Appears in no apparent distress. comfortable, Behavior is calm, cooperative, appropriate for age. Pain: Denies pain. Neuro: Level of Consciousness is awake, alert, obeys commands, Oriented to person, place, time, situation. Cardiovascular: Capillary refill < 3 seconds Patient's skin is warm and dry. Respiratory: Airway is patent Respiratory effort is even, unlabored, Respiratory pattern is regular, symmetrical. GI: No signs and/or symptoms were reported involving the gastrointestinal system. : No signs and/or symptoms were reported regarding the genitourinary system. EENT: No signs and/or symptoms were reported regarding the EENT system. Derm: Skin is intact, Skin is dry, Skin is normal, Skin temperature is warm Wound noted left side of the back of head Wound is small laceration that is sutured. no bleeding noted. Musculoskeletal: 08:12 Reassessment: EMS on the way for pt transportation for discharge. jd3 08:22 Reassessment: Patient appears in no apparent distress at this time. Patient and/or jd3 family updated on plan of care and expected duration. Pain level reassessed. Patient is alert, oriented x 3, equal unlabored respirations, skin warm/dry/pink. pt reported understanding of discharge instructions. Vital Signs: 04:15 BP 121 / 66; Pulse 85; Resp 18; Temp 97.2; Pulse Ox 100% on R/A; Height 5 ft. 7 in. ke1 (170.18 cm); Pain 0/10; Tatamy Coma Score: 04:24 Eye Response: spontaneous(4). Verbal Response: oriented(5). Motor Response: obeys ke1 commands(6). Total: 15. Trauma Score (Adult): 04:24 Eye Response: spontaneous(1); Verbal Response: oriented(1); Motor Response: obeys ke1 commands(2); Systolic BP: > 89 mm Hg(4); Respiratory Rate: 10 to 29 per min(4); Tatamy Score: 15; Trauma Score: 12 ED Course: 03:55 Patient arrived in ED. mw2 04:04 Jade Rubi RN is Primary Nurse. ke1 04:17 Triage completed. ke1 04:28 Eddi Ortiz MD is Attending Physician. [facility] 06:00 CT Head Brain wo Cont In Process Unspecified. EDMS 06:43 Bed in low position. Call light in reach. Side rails up X 1. Side rails up X2. ke1 06:44 Patient maintains SpO2 saturation greater than 95% on room air. ke1 07:59 Arm band placed on. jd3 08:23 Assist provider with laceration repair on left side of the back of head using sutures. jd3 Performed by Eddi Ortiz MD Patient tolerated well. Patient did not have IV access during this emergency room visit. Administered Medications: 07:15 Drug: Lidocaine-Epinephrine -1%: (1:100,000) 1 vials Volume: 20 ml; Route: Infiltration;ke1 Medication: 07:59 VIS not applicable for this client. jd3 Outcome: 07:33 Discharge ordered by . [facility] 08:23 Discharged to [facility] with EMS jd3 08:23 Condition: stable 08:23 Instructed on discharge instructions, follow up and referral plans. Demonstrated understanding of instructions, follow-up care. 08:24 Patient left the ED. jd3 Signatures: Dispatcher [employer] EDTX Carlos Manuel Hi RN RN jd3 Edmar Nino 2 Eddi Ortiz MD MD mh7 Jade Rubi, RN RN ke1
--- NOTE | 2021-07-26 07:34 | EDPHYS ---
Physician Documentation [facility] Name: Jami Woodruff Age: 80 yrs Sex: Female : 1940 Arrival Date: 07/26/2021 Time: 03:55 Bed 14 Private MD: ED Physician Eddi Ortiz HPI: 07/26 06:26 This 80 yrs old Female presents to ER via EMS with complaints of Fall. mh7 06:26 Details of fall: The patient fell from a supine position, while transferring. Onset: mh7 The symptoms/episode began/occurred today. Associated injuries: The patient sustained injury to the head, laceration, of the left side of the back of head. Severity of symptoms: At their worst the symptoms were moderate, earlier today, in the emergency department the symptoms have improved, moderately. Historical: - Allergies: 04:17 No Known Allergies; ke1 - PMHx: 04:17 venous insufficiency; ke1 - Immunization history:: Client reports receiving the 2nd dose of the Covid vaccine. - Social history:: Smoking status: Patient denies any tobacco usage or history of. ROS: 05:30 Constitutional: Negative for fever, chills, and weight loss, Eyes: Negative for injury, mh7 pain, redness, and discharge, ENT: Negative for injury, pain, and discharge, Neck: Negative for injury, pain, and swelling, Cardiovascular: Negative for chest pain, palpitations, and edema, Respiratory: Negative for shortness of breath, cough, wheezing, and pleuritic chest pain, Abdomen/GI: Negative for abdominal pain, nausea, vomiting, diarrhea, and constipation, Back: Negative for injury and pain, : Negative for injury, bleeding, discharge, and swelling, MS/Extremity: Negative for injury and deformity, Neuro: Negative for headache, weakness, numbness, tingling, and seizure, Psych: Negative for depression, anxiety, suicide ideation, homicidal ideation, and hallucinations, Allergy/Immunology: Negative for hives, rash, and allergies, Endocrine: Negative for neck swelling, polydipsia, polyuria, polyphagia, and marked weight changes, Hematologic/Lymphatic: Negative for swollen nodes, abnormal bleeding, and unusual bruising. Exam: 05:30 Constitutional: This is a well developed, well nourished patient who is awake, alert, mh7 and in no acute distress. Eyes: Pupils equal round and reactive to light, extra-ocular motions intact. Lids and lashes normal. Conjunctiva and sclera are non-icteric and not injected. Cornea within normal limits. Periorbital areas with no swelling, redness, or edema. ENT: Nares patent. No nasal discharge, no septal abnormalities noted. Tympanic membranes are normal and external auditory canals are clear. Oropharynx with no redness, swelling, or masses, exudates, or evidence of obstruction, uvula midline. Mucous membranes moist. Neck: Trachea midline, no thyromegaly or masses palpated, and no cervical lymphadenopathy. Supple, full range of motion without nuchal rigidity, or vertebral point tenderness. No Meningismus. Chest/axilla: Normal chest wall appearance and motion. Nontender with no deformity. No lesions are appreciated. Cardiovascular: Regular rate and rhythm with a normal S1 and S2. No gallops, murmurs, or rubs. Normal PMI, no JVD. No pulse deficits. Respiratory: Lungs have equal breath sounds bilaterally, clear to auscultation and percussion. No rales, rhonchi or wheezes noted. No increased work of breathing, no retractions or nasal flaring. Abdomen/GI: Soft, non-tender, with normal bowel sounds. No distension or tympany. No guarding or rebound. No evidence of tenderness throughout. Back: No spinal tenderness. No costovertebral tenderness. Full range of motion. Skin: Warm, dry with normal turgor. Normal color with no rashes, no lesions, and no evidence of cellulitis. MS/ Extremity: Pulses equal, no cyanosis. Neurovascular intact. Full, normal range of motion. Neuro: Awake and alert, GCS 15, oriented to person, place, time, and situation. Cranial nerves II-XII grossly intact. Motor strength 5/5 in all extremities. Sensory grossly intact. Cerebellar exam normal. Normal gait. Psych: Awake, alert, with orientation to person, place and time. Behavior, mood, and affect are within normal limits. Vital Signs: 04:15 BP 121 / 66; Pulse 85; Resp 18; Temp 97.2; Pulse Ox 100% on R/A; Height 5 ft. 7 in. ke1 (170.18 cm); Pain 0/10; Miki Coma Score: 04:24 Eye Response: spontaneous(4). Verbal Response: oriented(5). Motor Response: obeys ke1 commands(6). Total: 15. Trauma Score (Adult): 04:24 Eye Response: spontaneous(1); Verbal Response: oriented(1); Motor Response: obeys ke1 commands(2); Systolic BP: > 89 mm Hg(4); Respiratory Rate: 10 to 29 per min(4); [place] Score: 15; Trauma Score: 12 Laceration: 07:30 Wound Repair of 1cm ( 0.4in ) subcutaneous laceration to left side of the back of head. mh7 Irregularly shaped.. Profuse bleeding noted.. Distal neuro/vascular/tendon intact. Anesthesia: Local anesthetic administered with 3 mls of 1% lidocaine w/ Epi. Wound prep: Extensive cleansing with hibiclenz by nurse, Wound irrigation with saline by nurse, Wound explored extensively, Copious irrigation. Skin closed with 2 4-0 Prolene using simple sutures and sterile technique. Dressed with Kerlix. Patient tolerated well. MDM: 07:30 Differential diagnosis: abrasion, closed head injury, contusion, fracture. Data [facility] reviewed: vital signs, nurses notes, old medical records, radiologic studies, CT scan. Data interpreted: Pulse oximetry: on room air is 100 %. Interpretation: normal. Counseling: I had a detailed discussion with the patient and/or guardian regarding: the historical points, exam findings, and any diagnostic results supporting the discharge/admit diagnosis, radiology results, the need for outpatient follow up, to return to the emergency department if symptoms worsen or persist or if there are any questions or concerns that arise at home. Response to treatment: the patient's symptoms have resolved after treatment, the patient's blood pressure is in an acceptable range, mental status has returned to baseline, the patient no longer shows bradycardia, the patient is not short of breath, the patient is not tachycardic, the patient's pain is gone, the patient's temperature has normalized. 07:33 Patient medically screened. [facility] 07/26 05:28 Order name: CT Head Brain wo Cont [facility] Administered Medications: 07:15 Drug: Lidocaine-Epinephrine -1%: (1:100,000) 1 vials Volume: 20 ml; Route: Infiltration;ke1 Disposition Summary: 07/26/21 07:33 Discharge Ordered Location: Home [facility] Problem: new [facility] Symptoms: have improved mh Condition: Stable [facility] Diagnosis - Fall from bed, initial encounter [facility] - Laceration, Scalp 7 Followup: [facility] - With: Private Physician - When: 1 - 2 days - Reason: Wound Recheck, Worsening of condition, Recheck today's complaints, Continuance of care, Re-evaluation by your physician Discharge Instructions: - Discharge Summary Sheet [facility] - Laceration Care, Adult, Eioz-ge-Uwby [facility] - Sutured Wound Care, Xduo-dt-Yeep [facility] - Fall Prevention in the Home, Adult, Pxvn-uv-Ezml [facility] Forms: - Medication Reconciliation Form [facility] - Thank You Letter [facility] - Antibiotic Education [facility] - Prescription Opioid Use [facility] Signatures: Dispatcher [employer] Eddi Layne MD MD [facility] Jade Rubi RN RN ke1
[2021-07-26 08:36] VITALS: BP 121/66; TEMP 97.2; O2SAT 100
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
== END 2021-07-26 08:24 | disposition home or self-care (01) ==
LOC: ER 03:50
PROC: 0JQ00ZZ Repair Scalp Subcutaneous Tissue and Fascia, Open Approach (ICD-10-PCS; principal; 2021-07-26)
DX: S01.01XA Laceration without foreign body of scalp, initial encounter (principal); W06.XXXA Fall from bed, initial encounter
CPT/HCPCS: 70450; 99284; 12001; J2405

== ENCOUNTER 2022-01-30 10:42 | Emergency (ER) | payer OTHER ==
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
[2022-01-30] MEDS ORDERED: MORPHINE 2 MG/ML SYR ONE (10:56)
[2022-01-30 11:17] LABS: Hematocrit 34.1 % (36.0-45.0); Lymphocytes % 21.1 % (15.3-44.8); MPV 7.4 fL (7.6-11.3); RBC Red Blood Cell Count 3.75 M/uL (3.86-4.86)
[2022-01-30 11:32] LABS: Potassium 3.6 mmol/L (3.5-5.1)
--- NOTE | 2022-01-30 11:33 | RAD REPORT ---
EXAM DESCRIPTION: RAD - Femur Left - 01/30/2022 11:22 am CLINICAL HISTORY: PAIN COMPARISON: No comparisons FINDINGS/IMPRESSION: No acute fracture. No malalignment. Degenerative changes are present at the lef t acetabulum and at the knee. Peripheral vascular calcifications.
[2022-01-30] MEDS ORDERED: FENTANYL CITR 100 MCG/2 ML ONE (12:02)
--- NOTE | 2022-01-30 12:06 | RAD REPORT ---
EXAM DESCRIPTION: US - Extremity Venous Uni Ltd - 01/30/2022 11:54 am CLINICAL HISTORY: Pain COMPARISON: None. TECHNIQUE: Real-time sonographic evaluation of the left lower extremity deep venous system was perfo rmed. FINDINGS: Normal compressibility, flow augmentation, phasic flow and spontaneous flow is identified in the left lower extremity deep venous system. No intraluminal filling defects seen. IMPRESSION: No DVT in the left lower extremity.
--- NOTE | 2022-01-30 12:11 | RAD REPORT ---
EXAM DESCRIPTION: US - Lower Extremity Artery Uni Ltd - 01/30/2022 11:54 am CLINICAL HISTORY: Leg pain COMPARISON: None FINDINGS: The common femoral, superficial femoral and popliteal arteries demonstrate biphasic wavefo marilia The posterior tibial and dorsalis pedis arteries demonstrate biphasic waveforms. IMPRESSION: No flow limiting arterial stenosis in the left lower extremity.
[2022-01-30] MEDS ORDERED: HYDROCODONE/APAP 5/325 MG TAB ONE (13:01)
[2022-01-30] MEDS ORDERED: GABAPENTIN 300 MG CAP ONE (13:02)
--- NOTE | 2022-01-30 14:20 | ER ---
Nurse's Notes [facility] Name: Jami Woodruff Age: 81 yrs Sex: Female : 1940 Arrival Date: 01/30/2022 Time: 10:45 Bed 12 Private MD: Diagnosis: Pain in left leg Presentation: 01/30 10:46 Chief complaint: EMS states: complaining of left leg pain from mid thigh to pelvis jh5 since yesterday; denies falling. Coronavirus screen: Vaccine status: Patient reports receiving the 2nd dose of the covid vaccine. Client denies travel out of the [place] in the last 14 days. Ebola Screen: Patient negative for fever greater than or equal to 101.5 degrees Fahrenheit, and additional compatible Ebola Virus Disease symptoms Patient denies exposure to infectious person. Patient denies travel to an Ebola-affected area in the 21 days before illness onset. Initial Sepsis Screen: Does the patient meet any 2 criteria? No. Patient's initial sepsis screen is negative. Does the patient have a suspected source of infection? No. Patient's initial sepsis screen is negative. Risk Assessment: Do you want to hurt yourself or someone else? Patient reports no desire to harm self or others. 10:46 Method Of Arrival: EMS: [place] [address] 10:46 Acuity: MARTIR 3 5 Triage Assessment: 10:51 General: Appears uncomfortable, well groomed, well developed, well nourished, Behavior 5 is calm, cooperative, appropriate for age. Pain: Complains of pain in left leg. Historical: - PMHx: 10:51 venous insufficiency; [facility] - Immunization history:: Adult Immunizations up to date. - Social history:: Smoking status: Patient denies any tobacco usage or history of. - Family history:: not pertinent. - Hospitalizations: : No recent hospitalization is reported. Screenin:10 Abuse screen: Denies threats or abuse. Denies injuries from another. Nutritional [facility] screening: No deficits noted. Tuberculosis screening: No symptoms or risk factors identified. 14:27 Fall Risk Secondary diagnosis (15 points) Alzheimer's, impaired mobility. [facility] Assessment: 11:10 Reassessment: The patient states to the life insurance underwriter the gauze and co-band around her left 5 leg was placed 2 weeks ago. The life insurance underwriter removes the wrap due to inability to feel a pulse (provider is aware). The skin was wrapped so tight the co-band has extensive imprints into skin, there is 3+ edema noted to the toes distal to the wrap and the left knee above the wrap. Pt is grimacing in pain to the left leg and shows discomfort as the wrap is removed. Once wrap was removed the patient was taken straight to ultrasound. 14:26 Reassessment: spoke with Milagros at [facility] at this time and she states she will [facility] head this way to get pateint. Vital Signs: 10:46 BP 136 / 83; Pulse 88; Resp 16; Temp 98.6; Pulse Ox 98% ; Weight 90.72 kg; Height 5 ft. jh5 7 in. (170.18 cm); Pain 10/10; 10:46 Body Mass Index 31.32 (90.72 kg, 170.18 cm) [facility] ED Course: 10:45 Patient arrived in ED. eb 10:45 Collin Prasad MD is Attending Physician. rn 10:51 Triage completed. [facility] 10:51 Arm band placed on right wrist. 5 11:09 Basic Metabolic Panel Sent. jh5 11:09 CBC with Diff Sent. jh5 11:09 Inserted saline lock: 20 gauge in left antecubital area, using aseptic technique. jh5 11:24 XRAY Femur LEFT In Process Unspecified. EDMS 11:56 Extremity Venous Uni Ltd US In Process Unspecified. EDMS 11:56 Lower Extremity Artery Uni Ltd US In Process Unspecified. EDMS 12:01 Shelley Mcintosh, GARRETT is Primary Nurse. 5 12:33 Patient has correct armband on for positive identification. Side rails up X2. [facility] 14:26 No provider procedures requiring assistance completed. 5 Administered Medications: 11:09 Drug: morphine 2 mg Route: IVP; Infused Over: 4 mins; Site: left antecubital; [facility] 12:02 Drug: fentaNYL (PF) 50 mcg Route: IVP; Site: left antecubital; [facility] 13:02 Drug: HYDROcodone-acetaminophen 5 mg-325 mg 1 tabs Route: PO; 5 13:02 Drug: Gabapentin 300 mg Route: PO; [facility] Medication: 12:33 VIS not applicable for this client. [facility] Outcome: 14:20 Discharge ordered by . rn 14:45 Patient left the ED. jh5 Signatures: Dispatcher [employer] Collin Day MD MD rn Botello, Elizabeth eb Rees, Jessica, RN RN jh5
--- NOTE | 2022-01-30 14:20 | EDPHYS ---
Physician Documentation [facility] Name: Jami Woodruff Age: 81 yrs Sex: Female : 1940 Arrival Date: 01/30/2022 Time: 10:45 Bed 12 Private MD: ED Physician Collin Prasad HPI: 01/30 11:31 This 81 yrs old Female presents to ER via EMS with complaints of left leg pain. rn 11:31 The patient presents with pain. The complaints affect the left upper thigh and left rn quadriceps. 11:31 Onset: The symptoms/episode began/occurred yesterday. Modifying factors: The symptoms rn are alleviated by remaining still, the symptoms are aggravated by movement. Associated signs and symptoms: Pertinent negatives fever, rash, warmth, weakness. Severity of symptoms: At their worst the symptoms were moderate, in the emergency department the symptoms are unchanged. The patient has experienced similar episodes in the past. The patient has not recently seen a physician. Pt reports left leg pain, began yesterday, has chronic venous insufficiency and chronic pain, but worse yesterday. Pain in left upper leg/thigh. Denies fall. No fever.. Historical: - PMHx: 10:51 venous insufficiency; jh5 - Immunization history:: Adult Immunizations up to date. - Social history:: Smoking status: Patient denies any tobacco usage or history of. - Family history:: not pertinent. - Hospitalizations: : No recent hospitalization is reported. ROS: 11:31 Constitutional: Negative for fever, chills, and weight loss, Cardiovascular: Negative rn for chest pain, palpitations, and edema, Respiratory: Negative for shortness of breath, cough, wheezing, and pleuritic chest pain, Abdomen/GI: Negative for abdominal pain, nausea, vomiting, diarrhea, and constipation, Back: Negative for injury and pain, MS/Extremity: + left leg pain Skin: Negative for injury, rash, and discoloration, Neuro: Negative for headache, and seizure. Exam: 11:31 Constitutional: This is a well developed, well nourished patient who is awake, alert, rn appears in pain Head/Face: Normocephalic, atraumatic. Cardiovascular: Regular rate and rhythm. No pulse deficits. Respiratory: No increased work of breathing, no retractions or nasal flaring. Abdomen/GI: Soft, non-tender Skin: Warm, dry with normal turgor. Normal color with no rashes, no lesions, and no evidence of cellulitis. MS/ Extremity: Pulses equal, no cyanosis. Left leg dressed really tight to above knee, diminished pulses on left foot compared to right foot. No cyanosis. + painful ROM left hip. Neuro: Awake and alert, GCS 15 Vital Signs: 10:46 BP 136 / 83; Pulse 88; Resp 16; Temp 98.6; Pulse Ox 98% ; Weight 90.72 kg; Height 5 ft. jh5 7 in. (170.18 cm); Pain 10; 10:46 Body Mass Index 31.32 (90.72 kg, 170.18 cm) jh5 MDM: 10:46 Patient medically screened. rn 14:18 Differential diagnosis: closed fracture, contusion, tendonitis, arthritis, DVT, venous rn insufficiency, arterial insufficiency. Data reviewed: vital signs, nurses notes, lab test result(s), radiologic studies, and as a result, I will discharge patient. Counseling: I had a detailed discussion with the patient and/or guardian regarding: the historical points, exam findings, and any diagnostic results supporting the discharge/admit diagnosis, lab results, radiology results, the need for outpatient follow up, to return to the emergency department if symptoms worsen or persist or if there are any questions or concerns that arise at home. Response to treatment: the patient's symptoms have mildly improved after treatment. Special discussion: I discussed with the patient/guardian in detail that at this point there is no indication for admission to the hospital. It is understood, however, that if the symptoms persist or worsen the patient needs to return immediately for re-evaluation. Based on the history and exam findings, there is no indication for further emergent testing or inpatient evaluation. I discussed with the patient/guardian the need to see the primary care provider for further evaluation of the symptoms. ED course: Offered admission for pain control, states pain is better now, and brother would like to take her home now. Understands need for follow up and given return precautions. . 01/30 10:49 Order name: CBC with Diff; Complete Time: 11:37 rn 01/30 10:49 Order name: Basic Metabolic Panel; Complete Time: 11:37 rn 01/30 10:48 Order name: Extremity Venous Uni Ltd US; Complete Time: 12:40 rn 01/30 10:48 Order name: Lower Extremity Artery Uni Ltd US; Complete Time: 12:40 rn 01/30 10:48 Order name: XRAY Femur LEFT; Complete Time: 11:37 rn 01/30 10:49 Order name: IV Start; Complete Time: 10:54 rn Administered Medications: 11:09 Drug: morphine 2 mg Route: IVP; Infused Over: 4 mins; Site: left antecubital; [facility] 12:02 Drug: fentaNYL (PF) 50 mcg Route: IVP; Site: left antecubital; [facility] 13:02 Drug: HYDROcodone-acetaminophen 5 mg-325 mg 1 tabs Route: PO; 5 13:02 Drug: Gabapentin 300 mg Route: PO; [facility] Disposition Summary: 01/30/22 14:20 Discharge Ordered Location: Home rn Problem: new rn Symptoms: have improved rn Condition: Stable rn Diagnosis - Pain in left leg rn Followup: rn - With: Private Physician - When: As needed - Reason: Recheck today's complaints, Re-evaluation by your physician Discharge Instructions: - Discharge Summary Sheet rn - Musculoskeletal Pain rn - Pain Without a Known Cause rn Forms: - Medication Reconciliation Form rn - Thank You Letter rn - Antibiotic churn driller helper - Prescription Opioid Use rn Prescriptions: - Neurontin 300 mg Oral Capsule - take 1 capsule by ORAL route At bedtime; 30 capsule; Refills: 0, Product rn Selection Permitted - Tramadol 50 mg Oral Tablet - take 1 tablet by ORAL route every 8 hours as needed; 12 tablet; Refills: 0, rn Product Selection Permitted Signatures: Dispatcher [employer] Collin Day MD MD rn Rees, Jessica, RN RN [facility]
[2022-01-30 15:09] VITALS: BP 136/83; TEMP 98.6; O2SAT 98
== END 2022-01-30 14:45 | disposition home or self-care (01) ==
LOC: ER 10:42
DX: M79.605 Pain in left leg (principal)
CPT/HCPCS: 85025; 80048; 36415; 73552; 93926; 93971; 96375; 96374; 99284; J3010; J2270

== ENCOUNTER 2022-08-02 05:08 | Emergency (ER) | payer OTHER ==
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
--- NOTE | 2022-08-02 07:55 | RAD REPORT ---
EXAM DESCRIPTION: CT - CTHCSPWOC - 08/02/2022 7:20 am CLINICAL HISTORY: head injury. Fall out of bed COMPARISON: Head C Spine Mpr Wo Con dated 07/24/2021 TECHNIQUE: Axial thin cut noncontrast CT images of the head were obtained. Axial thin cut noncontrast CT images of the cervical spine were obtained. Multiplanar reformatted images were generated and reviewed. All CT scans are performed using dose optimization technique as appropriate and may include automated exposure control or mA/KV adjustment according to patient size. FINDINGS: CT HEAD WITHOUT CONTRAST: No acute hemorrhage, hydrocephalus or extra-axial collection is identified.Stable moderate diffuse pa renchymal volume loss, and confluent deep white matter hypodensities, nonspecific, but most suggestiv e of chronic small vessel ischemic changes.No areas of brain edema or midline shift. The paranasal sinuses and mastoids are clear.The calvarium is intact, with stable areas of calvarial thinning along the bilateral parietal regions and a small region in the left supra involving frontal bone. Left occipital scalp small hematoma. CT CERVICAL SPINE WITHOUT CONTRAST: No fracture or subluxation. Stable multilevel degenerative changes with variable degrees of disc heig ht loss most pronounced at C5-6. Variable degrees of neural foraminal narrowing, at least moderate bi laterally at C4-5, and moderate to severe on the right at C5-6. No prevertebral soft tissues swelling is identified. IMPRESSION: No acute traumatic intracranial or cervical spine findings. Small left occipital scalp hematoma. Stable chronic findings as above.
--- NOTE | 2022-08-02 08:30 | ER ---
Nurse's Notes [facility] Name: Jami Woodruff Age: 81 yrs Sex: Female : 1940 Arrival Date: 08/02/2022 Time: 05:08 Bed 2 Private MD: Diagnosis: Unspecified injury of head, initial encounter Presentation: 08/02 05:13 Chief complaint: EMS states: She was asleep and rolled out of bed. She has two vc1 hematomas on the back of her head and says that's the only place she hurts. She stopped taking Plavix on the . Coronavirus screen: Vaccine status: Patient reports being unvaccinated. Client denies travel out of the [place] in the last 14 days. At this time, the client does not indicate any symptoms associated with coronavirus-19. Ebola Screen: Patient negative for fever greater than or equal to 101.5 degrees Fahrenheit, and additional compatible Ebola Virus Disease symptoms Patient denies exposure to infectious person. Patient denies travel to an Ebola-affected area in the 21 days before illness onset. No symptoms or risks identified at this time. Initial Sepsis Screen: Does the patient meet any 2 criteria? No. Patient's initial sepsis screen is negative. Does the patient have a suspected source of infection? No. Patient's initial sepsis screen is negative. Risk Assessment: Do you want to hurt yourself or someone else? Patient reports no desire to harm self or others. Onset of symptoms was August 02, 2022. 05:13 Method Of Arrival: EMS: [facility] vc1 05:13 Acuity: MARTIR 2 vc1 05:21 Care prior to arrival: None. Activity prior to arrival: None. Mechanism of Injury: Fall vc1 out of bed. Transition of care: patient was received from another setting of care (long-term care facility), [facility]. Triage Assessment: 05:19 General: Appears in no apparent distress. uncomfortable, Behavior is calm, cooperative, vc1 appropriate for age. Pain: Complains of pain in occipital area Pain does not radiate. Pain currently is 8 out of 10 on a pain scale. EENT: No deficits noted. No signs and/or symptoms were reported regarding the EENT system. Neuro: Level of Consciousness is awake, alert, obeys commands, Oriented to person, situation, Appropriate for age. Cardiovascular: No deficits noted. Respiratory: Airway is patent Respiratory effort is even, unlabored, Respiratory pattern is regular, symmetrical. GI: No deficits noted. No signs and/or symptoms were reported involving the gastrointestinal system. : No deficits noted. No signs and/or symptoms were reported regarding the genitourinary system. Derm: No deficits noted. No signs and/or symptoms reported regarding the dermatologic system. Musculoskeletal: No deficits noted. No signs and/or symptoms reported regarding the musculoskeletal system. 05:21 Injury Description: Head injury sustained to occipital area. vc1 Historical: - Allergies: 05:18 No Known Allergies; vc1 - PMHx: 05:18 venous insufficiency; Memory problems; vc1 - PSHx: 05:18 Cholecystectomy; Appendectomy; vc1 - Immunization history:: Client reports having NOT received the Covid vaccine. - Social history:: Smoking status: Patient denies any tobacco usage or history of. - Code Status:: Full code. - History obtained from: EMS. - Coronavirus screen:: The patient has NOT traveled to [place] in the past 14 days. Proceed with normal triage process as indicated. - Ebola Screening: : Patient negative for fever greater than or equal to 101.5 degrees Fahrenheit, and additional compatible Ebola Virus Disease symptoms Patient denies exposure to infectious person Patient denies travel to an Ebola-affected area in the 21 days before illness onset No symptoms or risks identified at this time. Screenin:20 [facility] ED Fall Risk Assessment (Adult) History of falling in the last 3 months, vc1 including since admission Yes- single mechanical fall (1 pt) Confusion or Disorientation No (0 pts) Intoxicated or Sedated No (0 pts) Impaired Gait Yes (1 pt) Mobility Assist Device Used No (0 pt) Altered Elimination No (0 pt) Score/Fall Risk Level 0 - 2 = Low Risk Oriented to surroundings, Maintained a safe environment, Educated pt \T\ family on fall prevention, incl call for assistance when getting out of bed. Abuse screen: Denies threats or abuse. Nutritional screening: No deficits noted. Tuberculosis screening: No symptoms or risk factors identified. Assessment: 08:31 Reassessment: [facility]. ld1 08:31 Reassessment: Patient appears in no apparent distress at this time. No changes from ld1 previously documented assessment. Patient and/or family updated on plan of care and expected duration. Pain level reassessed. Patient is alert, oriented x 3, equal unlabored respirations, skin warm/dry/pink. 09:30 Reassessment: No changes from previously documented assessment. Patient and/or family ll1 updated on plan of care and expected duration. Pain level reassessed. Patient is alert, oriented x 3, equal unlabored respirations, skin warm/dry/pink. Vital Signs: 05:13 BP 122 / 66; Pulse 70; Resp 15; Temp 98.2; Pulse Ox 94% on R/A; Weight 77.11 kg; Height vc1 5 ft. 6 in. ; Pain 8/10; 07:08 BP 112 / 91; Pulse 68; Resp 18; Pulse Ox 97% on R/A; ld1 08:24 BP 129 / 58; Pulse 66; Resp 18; Pulse Ox 97% on R/A; ld1 08:31 BP 129 / 58; Pulse 70; Resp 18; Pulse Ox 97% on R/A; ld1 05:13 Body Mass Index 27.44 (77.11 kg, 167.64 cm) vc1 05:13 Pain Scale: Adult vc1 ED Course: 05:10 Patient arrived in ED. sb4 05:13 Candie Borden, RN is Primary Nurse. vc1 05:17 Triage completed. vc1 05:20 Arm band placed on right wrist. vc1 05:20 Patient has correct armband on for positive identification. Bed in low position. Call vc1 light in reach. Pulse ox on. NIBP on. 05:23 Karel Gamboa MD is Attending Physician. kdr 05:23 EKG completed in triage. Results shown to MD. vc1 07:21 CT Head C Spine In Process Unspecified. EDMS 07:27 Attending Physician role handed off by Karel Gamboa MD bs3 07:27 Hieu Penny MD is Attending Physician. bs3 09:53 No provider procedures requiring assistance completed. Patient did not have IV access ll1 during this emergency room visit. Administered Medications: No medications were administered Medication: 05:21 VIS not applicable for this client. vc1 Outcome: 08:29 Discharge ordered by . bs3 09:53 Discharged to home via wheelchair. ll1 09:53 Condition: stable 09:53 Discharge instructions given to patient, Instructed on discharge instructions, follow up and referral plans. Demonstrated understanding of instructions, follow-up care. 10:00 Patient left the ED. ld1 Signatures: Dispatcher [employer] Karel Barbour MD MD kdr Kyae Harris RN RN ll1 Joanna De La Cruz RN RN ld1 Candie Borden RN RN vc1 Hieu Penny MD MD bs3 Jessica Camarillo PA-C PA-C sb4
--- NOTE | 2022-08-02 08:30 | EDPHYS ---
Physician Documentation [facility] Name: Jami Woodruff Age: 81 yrs Sex: Female : 1940 Arrival Date: 08/02/2022 Time: 05:08 Bed 2 Private MD: ED Physician Hieu Penny HPI: 08/02 07:14 This 81 yrs old Female presents to ER via EMS with complaints of Head injury. kdr 07:14 Patient states she was on a new bed when she rolled out and hit her head on the floor. kdr She denies LOC. She denies any other injuries. She does have a 3 to 4 cm hematoma on her left occiput. Onset: The symptoms/episode began/occurred suddenly, just prior to arrival. Severity of symptoms: At their worst the symptoms were mild in the emergency department the symptoms are unchanged. The patient has not experienced similar symptoms in the past. The patient has not recently seen a physician. Historical: - Allergies: 05:18 No Known Allergies; vc1 - PMHx: 05:18 venous insufficiency; Memory problems; vc1 - PSHx: 05:18 Cholecystectomy; Appendectomy; vc1 - Immunization history:: Client reports having NOT received the Covid vaccine. - Social history:: Smoking status: Patient denies any tobacco usage or history of. - Code Status:: Full code. - History obtained from: EMS. - Coronavirus screen:: The patient has NOT traveled to [place] in the past 14 days. Proceed with normal triage process as indicated. - Ebola Screening: : Patient negative for fever greater than or equal to 101.5 degrees Fahrenheit, and additional compatible Ebola Virus Disease symptoms Patient denies exposure to infectious person Patient denies travel to an Ebola-affected area in the 21 days before illness onset No symptoms or risks identified at this time. ROS: 07:14 Constitutional: Negative for fever, chills, and weight loss, Eyes: Negative for injury, kdr pain, redness, and discharge, Neck: Negative for injury, pain, and swelling, Cardiovascular: Negative for chest pain, palpitations, and edema, Respiratory: Negative for shortness of breath, cough, wheezing, and pleuritic chest pain, Abdomen/GI: Negative for abdominal pain, nausea, vomiting, diarrhea, and constipation, Back: Negative for injury and pain, : Negative for injury, bleeding, discharge, and swelling, MS/Extremity: Negative for injury and deformity, Skin: Negative for injury, rash, and discoloration, patient does have a hematoma on her left occiput Neuro: Negative for headache, weakness, numbness, tingling, and seizure activity. Psych: Negative for depression, anxiety, suicide ideation, homicidal ideation, and hallucinations, Allergy/Immunology: Negative for hives, rash, and allergies, Endocrine: Negative for neck swelling, polydipsia, polyuria, polyphagia, and marked weight changes, Hematologic/Lymphatic: Negative for swollen nodes, abnormal bleeding, and unusual bruising. Exam: 07:14 Constitutional: This is a well developed, well nourished patient who is awake, alert, kdr and in no acute distress. Eyes: Pupils equal round and reactive to light, extra-ocular motions intact. Lids and lashes normal. Conjunctiva and sclera are non-icteric and not injected. Cornea within normal limits. Periorbital areas with no swelling, redness, or edema. Neck: Trachea midline, no thyromegaly or masses palpated, and no cervical lymphadenopathy. Supple, full range of motion without nuchal rigidity, or vertebral point tenderness. No Meningismus. Chest/axilla: Normal chest wall appearance and motion. Nontender with no deformity. No lesions are appreciated. Cardiovascular: Regular rate and rhythm with a normal S1 and S2. No gallops, murmurs, or rubs. Normal PMI, no JVD. No pulse deficits. Respiratory: Lungs have equal breath sounds bilaterally, clear to auscultation and percussion. No rales, rhonchi or wheezes noted. No increased work of breathing, no retractions or nasal flaring. Abdomen/GI: Soft, non-tender, with normal bowel sounds. No distension or tympany. No guarding or rebound. No evidence of tenderness throughout. Back: No spinal tenderness. No costovertebral tenderness. Full range of motion. Skin: Warm, dry with normal turgor. Normal color with no rashes, no lesions, and no evidence of cellulitis. MS/ Extremity: Pulses equal, no cyanosis. Neurovascular intact. Full, normal range of motion. Neuro: Awake and alert, GCS 15, oriented to person, place, time, and situation. Cranial nerves II-XII grossly intact. Motor strength 5/5 in all extremities. Sensory grossly intact. Cerebellar exam normal. Normal gait. Psych: Awake, alert, with orientation to person, place and time. Behavior, mood, and affect are within normal limits. 07:14 Head/face: Noted is abrasion(s), contusion, that is superficial, of the left occipital area, hematoma, that is moderate, of the left occipital area. Vital Signs: 05:13 BP 122 / 66; Pulse 70; Resp 15; Temp 98.2; Pulse Ox 94% on R/A; Weight 77.11 kg; Height vc1 5 ft. 6 in. ; Pain 8/10; 07:08 BP 112 / 91; Pulse 68; Resp 18; Pulse Ox 97% on R/A; ld1 08:24 BP 129 / 58; Pulse 66; Resp 18; Pulse Ox 97% on R/A; ld1 08:31 BP 129 / 58; Pulse 70; Resp 18; Pulse Ox 97% on R/A; ld1 05:13 Body Mass Index 27.44 (77.11 kg, 167.64 cm) vc1 05:13 Pain Scale: Adult vc1 MDM: 07:14 Data reviewed: vital signs, nurses notes. kdr 08:27 Differential Diagnosis Head injury, concussion, intracranial hemorrhage, C-spine bs3 fracture. ED course: Patient signed out pending CT and reassessment I reassessed the patient's is complaining of slight pain where she fell and hit her head her CTs were reviewed by myself negative for intracranial hemorrhage and no gross C-spine fractures will discharge back to her living facility Per reports she has a history of memory problems she likely has dementia. 08:29 Patient medically screened. bs3 08/02 07:00 Order name: CT Head C Spine; Complete Time: 08:23 kdr Administered Medications: No medications were administered Disposition Summary: 08/02/22 08:29 Discharge Ordered Location: Home bs3 Problem: new bs3 Symptoms: have improved bs3 Condition: Stable bs3 Diagnosis - Unspecified injury of head, initial encounter bs3 Followup: bs3 - With: Private Physician - When: - Reason: Re-evaluation by your physician Discharge Instructions: - Discharge Summary Sheet bs3 - Head Injury, Adult bs3 - Concussion, Adult, [id number] bs3 Forms: - Medication Reconciliation Form bs3 - Thank You Letter bs3 - Antibiotic Education bs3 - Prescription Opioid Use bs3 Signatures: Dispatcher [employer] Karel Barbour MD MD kdr Candie Borden, GARRETT RN vc1 Hieu Penny MD MD bs3
[2022-08-02 10:04] VITALS: TEMP 98.2
[2022-08-02 10:05] VITALS: O2SAT 97
[2022-08-02 10:06] VITALS: BP 129/58
--- NOTE | 2022-08-03 10:17 | EKG ---
Test Date: 2022-08-02 Test Time: 05:18:23 Child Nutrition Assistant: ELLA MEASUREMENT RESULTS: Intervals: Rate: 69 AK: 160 QRSD: 84 QT: 452 QTc: 484 [place]: P: -18 AK: 160 QRS: 9 T: 32 INTERPRETIVE STATEMENTS: Normal sinus rhythm Normal ECG Compared to ECG 06/03/2021 23:17:18 No significant changes Electronically Signed On 08-03-22 10:13:56 CDT by Toni Madera
== END 2022-08-02 10:00 | disposition home or self-care (01) ==
LOC: ER 05:08
DX: S09.90XA Unspecified injury of head, initial encounter (principal)
CPT/HCPCS: 70450; 72125; 93005; 99284

== ENCOUNTER 2022-10-29 09:10 | Inpatient (IN) | payer OTHER ==
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
[2022-10-29 10:08] LABS: Specific Gravity 1.021 (1.005-1.030); Urine Bacteria <20 /HPF (<20); Urine Bilirubin NEGATIVE (Negative); Urine Blood 2+ (Negative); Urine Clarity Extremely Turbid (Clear); Urine Color Yellow (Yellow); Urine Glucose NEGATIVE (Negative); Urine Mucus 2+ /HPF (None Seen); Urine Protein TRACE (Negative); Urine RBC <5 /HPF (None Seen); Urine Urobilinogen Normal (Normal)
[2022-10-29 10:25] LABS: Absolute Lymphocytes (CBC) 0.2 K/uL (0.7-4.9); Hematocrit 37.6 % (36.0-45.0); Lymphocytes % 1.4 % (15.3-44.8); MCV 90.9 fL (80-100); Platelets 178 thou/uL (152-406); RBC Red Blood Cell Count 4.13 M/uL (3.86-4.86)
[2022-10-29 10:32] LABS: Protime INR 1.28
[2022-10-29 10:39] LABS: SARS-CoV-2 Antigen Rapid Res Negative (Negative)
[2022-10-29 10:46] LABS: Albumin 2.5 g/dL (3.4-5.0); Potassium 3.1 mEq/L (3.5-5.1); Protein, Total 6.7 g/dL (6.4-8.2)
[2022-10-29] MEDS ORDERED: NA CHLORIDE 0.9% 1,000 ML ONE (11:06)
[2022-10-29 11:35] LABS: Blood Morphology Comment NOT SEEN (NOT SEEN); Platelet Estimate ADEQ; White Blood Cell Scan OK (OK)
--- NOTE | 2022-10-29 11:53 | RAD REPORT ---
EXAM DESCRIPTION: Yaniv Single View10/29/2022 11:31 am CLINICAL HISTORY: Fever COMPARISON: 2021 FINDINGS: Minimal right basilar atelectasis The remainder of the lungs appear clear of acute infiltrate. Small left pleural effusion. Heart is borderline enlarged. Aorta is tortuous
--- NOTE | 2022-10-29 12:00 | RAD REPORT ---
EXAM DESCRIPTION: CT - Abdomen Pelvis W Contrast - 10/29/2022 11:28 am CLINICAL HISTORY: Abdominal pain COMPARISON: none. TECHNIQUE: Computed axial tomography of the abdomen pelvis was obtained. 100 cc Isovue-300 was admin istered intravenously. Oral contrast was not requested which limits evaluation of bowel and appendix All CT scans are performed using dose optimization technique as appropriate and may include automated exposure control or mA/KV adjustment according to patient size. FINDINGS: Small left pleural effusion. Mild tree-in-bud opacities right lower lobe Small to moderate hiatal hernia. The gallbladder is not seen and presumably has been resected. Mild prominence of the common bile duct . Pancreas, adrenals, spleen, kidneys and liver unremarkable Fluid within nondilated large and small bowel. 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 Mild prominence of the common bile duct probably physiologic. This should be be correlated clinically and with appropriate lab values
--- NOTE | 2022-10-29 12:29 | ER ---
Nurse's Notes [facility] Name: Jami Woodruff Age: 82 yrs Sex: Female : 1940 Arrival Date: 10/29/2022 Time: 09:10 Bed 20 Private MD: Diagnosis: Infectious gastroenteritis and colitis, unspecified;Severe sepsis without septic shock Presentation: 10/29 09:10 Chief complaint: EMS states: Sent [place] for n/v/d along with hypotension and fever. [facility] 09:10 Coronavirus screen: Unknown. Ebola Screen: Patient denies travel to an Ebola-affected [facility] area in the 21 days before illness onset. Initial Sepsis Screen: Does the patient meet any 2 criteria? Altered Mental Status. HR > 90 bpm. Yes Does the patient have a suspected source of infection? No. Patient's initial sepsis screen is negative. Risk Assessment: Do you want to hurt yourself or someone else? Unable to obtain. Onset of symptoms was October 28, 2022. Care prior to arrival: Medication(s) given: zofran 4 mg, IV initiated. 09:10 Method Of Arrival: EMS: [facility] 09:10 Acuity: MARTIR 2 [facility] Historical: - Allergies: 09:10 No Known Allergies; nj1 - PMHx: 09:10 Memory problems; venous insufficiency; Dementia; Left knee pain; nj1 - Immunization history:: Adult Immunizations unknown. - Social history:: Smoking status: unknown. - Code Status:: Full code. Screenin:03 [facility] ED Fall Risk Assessment (Adult) Score/Fall Risk Level 0 - 2 = Low Risk [facility] Maintained a safe environment, Hourly rounding (assess needs \\T\\ fall precautionary measures) done. Abuse screen: Denies threats or abuse. Denies injuries from another. Nutritional screening: No deficits noted. Tuberculosis screening: No symptoms or risk factors identified. Assessment: 09:20 General: Appears in no apparent distress. uncomfortable, Behavior is appropriate for [facility] age, anxious, Hx of dementia. Pain: Complains of pain in abdomen Unable to use pain scale. Does not appear to understand pain scale. Neuro: Level of Consciousness is awake, alert, Oriented to person. Cardiovascular: Patient's skin is warm and dry. Respiratory: Airway is patent Respiratory effort is even, unlabored. GI: Parent/caregiver reports the patient having diarrhea, nausea, vomiting. 11:44 Reassessment: Patient appears in no apparent distress at this time. Patient and/or nj1 family updated on plan of care and expected duration. Pain level reassessed. 12:42 Reassessment: Patient appears in no apparent distress at this time. Patient and/or nj1 family updated on plan of care and expected duration. Pain level reassessed. Brother at bedside. 13:05 Reassessment: Patient appears in no apparent distress at this time. Patient and/or nj1 family updated on plan of care and expected duration. Pain level reassessed. 14:00 Reassessment: Patient appears in no apparent distress at this time. Patient and/or nj1 family updated on plan of care and expected duration. Pain level reassessed. Brother/POA at bedside. 14:12 Reassessment: Inside lab notified of need for recollect reflex lactate as instructed by luciano Kat from outside lab. This RN able to collect small specimen after 2 attempts, not enough for testing per Courtney instructions. Inside lab states "will be there when able to, it may be a while". 15:00 Reassessment: Patient appears in no apparent distress at this time. Patient and/or nj1 family updated on plan of care and expected duration. Pain level reassessed. 15:34 Reassessment: Unsuccessful attempt to call report. Nurse not at nursing station, given [facility] Ashley number to call report. No answer when call nurse Keerthi phone number. 15:38 Reassessment: Second attempt to call report unsuccessful. No answer. [facility] 16:01 Reassessment: Unsuccessful attempt to call report at this time. This RN called second [facility] floor nursing station, Vanessa says she needs to go find Phuong, her phone is sitting on top of computer. Charge nurse aware. 16:20 Reassessment: Report given to nurse Baca at this time. [facility] Vital Signs: 09:15 BP 103 / 48; Pulse 106; Resp 20; Temp 99.9(O); Pulse Ox 90% on R/A; Weight 72.57 kg; [facility] Height 5 ft. 5 in. ; 09:20 Pulse Ox 89% on R/A; [facility] 09:30 BP 103 / 88; Pulse 107; Resp 19; Pulse Ox 95% on 2 lpm NC; nj1 09:50 BP 103 / 56; Pulse 105; Resp 19; Pulse Ox 97% on 2 lpm NC; nj1 11:43 BP 105 / 54; Pulse 94; Resp 19; Pulse Ox 95% on 2 lpm NC; nj1 12:42 BP 134 / 54; Pulse 100; Resp 20; Pulse Ox 96% on 2 lpm NC; nj1 14:16 BP 110 / 94; Pulse 89; Resp 16; Temp 99.4(O); Pulse Ox 97% on 4 lpm NC; nj1 09:15 Body Mass Index 26.63 (72.57 kg, 165.1 cm) nj1 09:20 NC \\T\\ 2 LPM applied [facility] ED Course: 09:13 Patient arrived in ED. 1 09:13 Vidya Dawn FNP is PHCP. jh7 09:13 Collin Prasad MD is Attending Physician. 7 09:20 Maintain EMS IV. Removed (dc'd). Does not flush, painful per patient report.. nj1 09:30 First set of blood cultures drawn by me. Inserted saline lock: 20 gauge in right db forearm, using aseptic technique. Blood collected. 09:35 Jaja Ibarra, RN is Primary Nurse. nj1 09:45 Straight cath inserted, using sterile technique, 14 Fr. Specimen obtained. nj1 09:58 Triage completed. nj1 10:02 Arm band placed on. nj1 10:04 Provided Education on: unable to complete at this time. Hx of dementia. nj1 10:04 Patient has correct armband on for positive identification. Bed in low position. Call [facility] light in reach. Side rails up X 1. Curtain open, close to nursing station. 10:21 Flu Sent. bc6 10:21 SARS RAPID Sent. bc6 10:21 CBC with Diff Sent. bc6 10:21 Blood Culture Adult (2) Sent. bc6 10:21 CMP Sent. bc6 10:21 Lactate w/ 2H reflex if indic. Sent. bc6 10:21 Protime (+inr) Sent. bc6 10:21 Ptt, Activated Sent. bc6 10:50 Notified Nurse Practitioner and/or Physician Six Pack Loader Operator of a critical lab result(s), ll1 lactate 3.0. 11:09 Radiology exam delayed due to lab results not completed at this time. IV insertion ml attempt and/or patient not having appropriate IV at this time. 11:30 CT Abd/Pelvis - IV Contrast Only In Process Unspecified. EDMS 11:33 Chest Single View XRAY In Process Unspecified. EDMS 12:27 Aydin Baca MD is Hospitalizing Provider. [facility] 14:00 Missed attempt(s): 24 gauge. nj1 14:05 Inserted saline lock: 24 gauge in left forearm, using aseptic technique. Blood nj1 collected. 16:02 No provider procedures requiring assistance completed. Patient admitted, IV remains in ok1 place. Administered Medications: 09:30 Drug: NS 0.9% IV (30 ml/kg) 30 ml/kg Route: IV; Rate: bolus; Site: right forearm; nj1 16:00 Follow up: Response: No adverse reaction; IV Status: Completed infusion; IV Intake: nj1 2000ml 13:04 Drug: metroNIDAZOLE IVPB 500 mg Volume: 100 ml; Route: IVPB; Rate: 200 ml/hr; Infused nj1 Over: 30 mins; Site: right forearm; 13:33 Follow up: Response: No adverse reaction; IV Status: Completed infusion; IV Intake: nj1 100ml 13:34 Drug: Potassium Chloride IV 20 mEq Route: IV; Rate: 1 calculated rate; Site: right nj1 forearm; 15:47 Follow up: Response: No adverse reaction; IV Status: Completed infusion; IV Intake: nj1 100ml 13:35 Drug: Ciprofloxacin IVPB 400 mg Volume: 200 ml; Route: IVPB; Infused Over: 60 mins; nj1 Site: right forearm; 14:38 Follow up: IV Status: Completed infusion; IV Intake: 200ml nj1 Medication: 16:04 VIS not applicable for this client. nj1 Intake: 13:33 IV: 100ml; Total: 100ml. nj1 14:38 IV: 200ml; Total: 300ml. nj1 15:47 IV: 100ml; Total: 400ml. nj1 16:00 IV: 2000ml; Total: 2400ml. nj1 Outcome: 12:29 Decision to Hospitalize by Provider. [facility] 16:02 Admitted to Med/surg nj1 16:02 Admitted to Med/surg accompanied by tech, via stretcher, room 211. 16:02 Condition: stable 16:02 Instructed on the need for admit. 16:28 Patient left the ED. 1 Signatures: Dispatcher [employer] EDMS Kori Aguilar Kandis kj1 Kaye Harris, RN RN ll1 Vidya Dawn, LORENA CAMPAIGN WORKER jh7 Estefany Byers RN RN db Marli aClvin 6 Jaja Ibarra RN RN nj1 Corrections: (The following items were deleted from the chart) 10:00 09:30 BP 103 / 88; Pulse 107bpm; Resp 19bpm; Pulse Ox 95% RA; db nj1 10:02 09:20 Pulse Ox 89% RA; nj1 nj1
--- NOTE | 2022-10-29 12:29 | EDPHYS ---
Physician Documentation [facility] Name: Jami Woodruff Age: 82 yrs Sex: Female : 1940 Arrival Date: 10/29/2022 Time: 09:10 Bed 20 Private MD: ED Physician Collin Prasad HPI: 10/29 09:10 This 82 yrs old Female presents to ER via EMS with complaints of N/V/D, fever, jh7 hypotension. 09:10 The patient presents to the emergency department with nausea, vomiting, diarrhea. jh7 Onset: The symptoms/episode began/occurred yesterday. Associated signs and symptoms: Pertinent positives: diarrhea, fever, nausea, vomiting, Pertinent negatives: abdominal pain. 82-year-old female presents from the care home for nausea, vomiting, diarrhea, fever, and hypotension. The care home staff reports that symptoms began last night. The patient has a history of dementia, anxiety, venous insufficiency, and chronic back pain. EMS reports hypotension with systolic blood pressure in the 90s.. Historical: - Allergies: 09:10 No Known Allergies; nj1 - PMHx: 09:10 Memory problems; venous insufficiency; Dementia; Left knee pain; nj1 - Immunization history:: Adult Immunizations unknown. - Social history:: Smoking status: unknown. - Code Status:: Full code. ROS: 09:10 Eyes: Negative for injury, pain, redness, and discharge, ENT: Negative for injury, jh7 pain, and discharge, Neck: Negative for injury, pain, and swelling, Cardiovascular: Have anything back on her but she will likely see a dry black suspect GI bleed Respiratory: Negative for shortness of breath, cough, wheezing, and pleuritic chest pain, Back: Negative for injury and pain, MS/Extremity: Negative for injury and deformity, Skin: Negative for injury, rash, and discoloration. 09:10 Constitutional: Positive for fever. 09:10 Abdomen/GI: Positive for nausea, vomiting, and diarrhea, Negative for abdominal pain. 09:10 Neuro: Positive for altered mental status. 09:10 All other systems are negative. Exam: 09:10 Head/Face: Normocephalic, atraumatic. ENT: Nares patent. No nasal discharge, no jh7 septal abnormalities noted. Oropharynx with no redness, swelling, or masses, exudates, or evidence of obstruction, uvula midline. Mucous membranes moist. Neck: Trachea midline, no thyromegaly or masses palpated, and no cervical lymphadenopathy. Supple, full range of motion without nuchal rigidity, or vertebral point tenderness. No Meningismus. Cardiovascular: Regular rate and rhythm with a normal S1 and S2. No gallops, murmurs, or rubs. Normal PMI, no JVD. No pulse deficits. Respiratory: Lungs have equal breath sounds bilaterally, clear to auscultation and percussion. No rales, rhonchi or wheezes noted. No increased work of breathing, no retractions or nasal flaring. Back: No spinal tenderness. No costovertebral tenderness. Full range of motion. Skin: Warm, dry with normal turgor. Normal color with no rashes, no lesions, and no evidence of cellulitis. MS/ Extremity: Pulses equal, no cyanosis. Neurovascular intact. Full, normal range of motion. 09:10 Constitutional: The patient appears lethargic, obviously ill. 09:10 Abdomen/GI: Inspection: abdomen appears normal, Bowel sounds: normal, Palpation: abdomen is soft and non-tender, emesis/gastric contents smell of Black emesis dried on the patient's lips. 09:10 Neuro: Orientation: Not oriented to place, time, situation, Sensation: is normal, Mentation consistent with baseline. Vital Signs: 09:15 BP 103 / 48; Pulse 106; Resp 20; Temp 99.9(O); Pulse Ox 90% on R/A; Weight 72.57 kg; nj1 Height 5 ft. 5 in. ; 09:20 Pulse Ox 89% on R/A; oh1 09:30 BP 103 / 88; Pulse 107; Resp 19; Pulse Ox 95% on 2 lpm NC; nj1 09:50 BP 103 / 56; Pulse 105; Resp 19; Pulse Ox 97% on 2 lpm NC; nj1 11:43 BP 105 / 54; Pulse 94; Resp 19; Pulse Ox 95% on 2 lpm NC; nj1 12:42 BP 134 / 54; Pulse 100; Resp 20; Pulse Ox 96% on 2 lpm NC; nj1 14:16 BP 110 / 94; Pulse 89; Resp 16; Temp 99.4(O); Pulse Ox 97% on 4 lpm NC; nj1 09:15 Body Mass Index 26.63 (72.57 kg, 165.1 cm) [facility] 09:20 NC \T\ 2 LPM applied [facility] MDM: 09:13 Patient medically screened. [facility] 12:10 Differential diagnosis: gastritis, diverticulitis, viral gastroenteritis, 7 gastroenteritis, GI bleed, Peptic Ulcer. Data reviewed: vital signs, nurses notes, lab test result(s), EKG, radiologic studies, CT scan. Consideration of Admission/Observation Patient was admitted/placed on observation. Management of patient was discussed with the following: Hospitalist: Paula Umana Dr.'s STERILE PREPARATION TECHNICIAN. I considered the following discharge prescriptions or medication management in the emergency department Medications were administered in the Emergency Department. See MAR. Independent interpretation of the following test(s) in the Emergency Department EKG: See my EKG interpretation above. Care significantly affected by the following chronic conditions: Dementia. Counseling: I had a detailed discussion with the patient and/or guardian regarding the historical points, exam findings, and any diagnostic results supporting the discharge/admit diagnosis, the need for further work-up and treatment in the hospital. Response to treatment: the patient's symptoms have mildly improved after treatment. 10/29 09:14 Order name: Blood Culture Adult (2) [facility] 10/29 09:14 Order name: CBC with Diff; Complete Time: 12:05 [facility] 10/29 09:14 Order name: CMP; Complete Time: 10:58 [facility] 10/29 09:14 Order name: Lactate w/ 2H reflex if indic.; Complete Time: 10:58 [facility] 10/29 09:14 Order name: Protime (+inr); Complete Time: 10:33 [facility] 10/29 09:14 Order name: Ptt, Activated; Complete Time: 10:33 [facility] 10/29 09:14 Order name: Urinalysis w/ reflexes; Complete Time: 10:19 [facility] 10/29 09:14 Order name: SARS RAPID; Complete Time: 10:58 [facility] 10/29 09:14 Order name: Flu; Complete Time: 10:58 [facility] 10/29 10:19 Order name: Urine Culture [facility] 10/29 11:20 Order name: CBC Smear Scan; Complete Time: 12:05 [facility] 10/29 13:35 Order name: Urinalysis w/ reflexes [facility] 10/29 13:35 Order name: Lactate w/ 2H reflex if indic. [facility] 10/29 13:35 Order name: Urinalysis w/ reflexes [facility] 10/29 13:35 Order name: Basic Metabolic Panel [facility] 10/29 13:35 Order name: Basic Metabolic Panel [facility] 10/29 13:35 Order name: CBC with Automated Diff [facility] 10/29 13:35 Order name: CBC with Automated Diff [facility] 10/29 13:35 Order name: Magnesium [facility] 10/29 13:35 Order name: Magnesium [facility] 10/29 15:21 Order name: Lactate Sepsis 2 HR Follow-up [facility] 10/29 09:14 Order name: Chest Single View XRAY; Complete Time: 12:05 [facility] 10/29 09:14 Order name: CT Abd/Pelvis - IV Contrast Only; Complete Time: 12:05 [facility] 10/29 09:14 Order name: EKG; Complete Time: 09:15 [facility] 10/29 13:35 Order name: Physical Therapy Consult [facility] 10/29 13:35 Order name: 60g Consistent Carbohydrate (ADA 1800/2000) [facility] 10/29 09:14 Order name: Accucheck; Complete Time: 10:53 [facility] 10/29 09:14 Order name: Cardiac monitoring; Complete Time: 10:07 [facility] 10/29 09:14 Order name: EKG - Nurse/Tech; Complete Time: 09:56 [facility] 10/29 09:14 Order name: IV Saline Lock - Large Bore; Complete Time: 09:56 [facility] 10/29 09:14 Order name: Labs collected and sent; Complete Time: 10:21 [facility] 10/29 09:14 Order name: O2 Per Protocol; Complete Time: 09:56 [facility] 10/29 09:14 Order name: O2 Sat Monitoring; Complete Time: 09:56 [facility] 10/29 09:14 Order name: Vital Signs; Complete Time: 09:56 [facility] EC:50 Rate is 105 beats/min. QRS [place] is Normal. [place] interval is normal at 186 msec. QRS jh7 interval is normal at 68 msec. QT interval is prolonged at 396 msec. No Q waves. Clinical impression: Sinus tachycardia with frequent premature ventricular complexes. Administered Medications: 09:30 Drug: NS 0.9% IV (30 ml/kg) 30 ml/kg Route: IV; Rate: bolus; Site: right forearm; oh1 16:00 Follow up: Response: No adverse reaction; IV Status: Completed infusion; IV Intake: nj1 2000ml 13:04 Drug: metroNIDAZOLE IVPB 500 mg Volume: 100 ml; Route: IVPB; Rate: 200 ml/hr; Infused nj1 Over: 30 mins; Site: right forearm; 13:33 Follow up: Response: No adverse reaction; IV Status: Completed infusion; IV Intake: nj1 100ml 13:34 Drug: Potassium Chloride IV 20 mEq Route: IV; Rate: 1 calculated rate; Site: right nj1 forearm; 15:47 Follow up: Response: No adverse reaction; IV Status: Completed infusion; IV Intake: nj1 100ml 13:35 Drug: Ciprofloxacin IVPB 400 mg Volume: 200 ml; Route: IVPB; Infused Over: 60 mins; nj1 Site: right forearm; 14:38 Follow up: IV Status: Completed infusion; IV Intake: 200ml oh1 Disposition: 17:30 Co-signature as Attending Physician, Collin Prasad MD I reviewed the patient's care rn provided by the Advanced Practice Provider and agree with the diagnosis and treatment plan. Disposition Summary: 10/29/22 12:29 Hospitalization Ordered Hospitalization Status: Inpatient Admission [facility] Provider: Aydin Baca [facility] Location: Telemetry/MedSur (Inpatient) [facility] Condition: Stable [facility] Problem: new [facility] Symptoms: have improved [facility] Bed/Room Type: Standard [facility] Room Assignment: 211(10/29/22 14:31) [facility] Diagnosis - Infectious gastroenteritis and colitis, unspecified [facility] - Severe sepsis without septic shock [facility] Forms: - Medication Reconciliation Form [facility] - SBAR form [facility] - Leadership Thank You Letter [facility] Signatures: Dispatcher [employer] Collin Day MD MD rn Aguilar, Jose RN RN ja1 Vidya Dawn FNP FNP [facility] Jaja Ibarra RN RN nj1 Corrections: (The following items were deleted from the chart) 14:31 12:29 [place] [id number]
--- NOTE | 2022-10-29 13:08 | P.HP ---
Certification for Inpatient Patient admitted to: Observation With expected LOS: <2 Midnights Patient will require the following post-hospital care: Other ([facility]) Practitioner: I am a practitioner with admitting privileges, knowledge of patient current condition, hospital course, and medical plan of care. Services: Services provided to patient in accordance with Admission requirements found in Title 42 Section 412.3 of the Code of Federal Regulations Patient History Date of Service: 10/29/22 Reason for admission: NVD History of Present Illness: 82-year-old female with a past medical history of dementia, venous insufficiency, left knee pain, chronic pain presents to the emergency room via EMS from [facility] for nausea vomiting diarrhea. brother is at bedside is primary historian he reports patient was transported to the emergency room for fever started last night. Per ER note patient was nausea vomiting grabiel rrhea with a fever of 100.3 per EMS. No reported cough, shortness of breath, abdominal pain, chest pain. Edema. HPI limited due to patient confusion/dementia. Plan to admit for - Infectious gastroenteritis and colitis, unspecified Severe sepsis without septic shock Patient treated with NS 0.9% IV (30 ml/kg) 30 ml/kg Route: IV; Rate: bolus; Site: right forearm; Cipro, Flagyl. ER lab evaluation lactic 3.0, potassium hypokalemia 3.1, acute on chronic kidney injury unknown baseline BUN 29, creatinine 1.12, estimated GFR 50 blood glucose 127, hypoalbumin 2.5, leukocytosis WBCs 11.20, early left shift at 95.0, UA leukoesterase 75, 2+ blood, SARS Cov 2 negative Chest x-ray FINDINGS: Minimal right basilar atelectasisThe remainder of the lungs appear clear of acute infiltrate.Small left pleural effusion.Heart is borderline enlarged. Aorta is tortuous CT of the abdomen pelvis IMPRESSION: Mild tree-in-bud opacities right lower lobe may indicate an atypical pneumonia Fluid within nondilated small and large bowel may indicate an enteritis. Mild prominence of the common bile duct probably physiologic. This should be be correlated clinically and with appropriate lab values, 11 millimeter calcified splenic arterial aneurysm, Spondylosis lumbar spine resulting in spinal stenosis, Small to moderate hiatal hernia [facility] ER evaluation 5 BP 103 / 48; Pulse 106; Resp 20; Temp 99.9(O); Pulse Ox 90% on R/A; Weight 72.57 kg; EKG Rate is 105 beats/min. QRS [place] is Normal. AL interval is normal at 186 msec. QRS interval is normal at 68 msec. QT interval is prolonged at 396 msec. No Q waves.Clinical impression: Sinus tachycardia with frequent premature ventricular complexes. Allergies No Known Allergies Allergy (Verified 06/04/21 03:58) Home Medications: Acetaminophen 500 mg PO Q6HP PRN 04/14/21 Mirabegron [Myrbetriq] 50 mg PO DAILY 04/14/21 Clopidogrel Bisulfate [Plavix*] 75 mg PO DAILY 06/09/21 Collagenase [Santyl Ointment*] 1 appl TOP DAILY 06/09/21 hydroCHLOROthiazide [Hydrochlorothiazide*] 12.5 mg PO DAILY 06/09/21 Ceftriaxone [Rocephin] 2,000 mg IV DAILY #14 vial 06/16/21 Vancomycin/Water For Inj (Peg) [Vancomycin 750 mg/150 ml Bag] 750 mg IV DAILY #14 piggyback 06/16/21 - Past Medical/Surgical History Diabetic: No -: Overactive Bladder -: Lymphedema -: Depression -: Venous Insufficiency -: Appendectomy -: Cholecystectomy Psychosocial/ Personal History: Patient lives at [facility]. - Family History Sister -: Diabetes - Social History Alcohol use: No CD- Drugs: No Caffeine use: Yes Review of Systems 10-point ROS is otherwise unremarkable Physical Examination - Physical Exam General: Alert, In no apparent distress, Oriented x1, Other (confused as baseline) HEENT: Atraumatic, Normocephalic, PERRLA, Other (Dry mucous membranes with old vomitus on lips) Neck: 2+ carotid pulse no bruit, JVD not distended Respiratory: Clear to auscultation bilaterally, Normal air movement Cardiovascular: No edema, Normal pulses, Regular rate/rhythm, Normal S1 S2 Capillary refill: <2 Seconds Gastrointestinal: Normal bowel sounds Musculoskeletal: No clubbing, No swelling Integumentary: Other (skin tears/small abrasion on toes, Left foot 3 toe discolored) Urinary: Other (Incontinent of bowel and bladder) - Studies Laboratory Data (last 24 hrs) 10/29/22 10/29/22 10/29/22 10:15 10:15 10:15 WBC 11.20 H Hgb 13.0 Hct 37.6 Plt Count 178 PT 14.1 H INR 1.28 APTT 32.3 Sodium 139 Potassium 3.1 L BUN 29 H Creatinine 1.12 H Glucose 127 H Total Bilirubin 1.0 AST 32 ALT 18 Alkaline Phosphatase 89 Microbiology Data (last 24 hrs): 10/29/22 10:15 Nasopharnyx Influenza Type A Antigen Screen - Final 10/29/22 10:15 Nasopharnyx Influenza Type B Antigen Screen - Final Assessment and Plan - Plan Assessment plan Infectious gastroenteritis and colitis, unspecified Severe sepsis without septic shock Lactic acidosis Leukocytosis Mild tree-in-bud opacities right lower lobe may indicate an atypical pneumonia 11 millimeter calcified splenic arterial aneurysm Spondylosis lumbar spine resulting in spinal stenosis Small to moderate hiatal hernia Hypokalemia Acute on chronic kidney injury Dementia Chronic pain Venous insufficiency DVT prophylaxis Assessment plan Infectious gastroenteritis and colitis, unspecified Severe sepsis without septic shock Lactic acidosis Leukocytosis Mild tree-in-bud opacities right lower lobe may indicate an atypical pneumonia lactic 3.0, leukocytosis WBCs 11.20, early left shift at 95.0, UA leukoesterase 75, 2+ blood, SARS Cov [address] of the abdomen pelvis IMPRESSION: Mild tree-in-bud opacities right lower lobe may indicate an atypical pneumonia Fluid within nondilated small and large bowel may indicate an enteritis. Mild prominence of the common bile duct probably physiologic. This should be be correlated clinically and with appropriate lab values, 11 millimeter calcified splenic arterial aneurysm, Spondylosis lumbar spine resulting in spinal stenosis, Small to moderate hiatal hernia Chest x-ray FINDINGS: Minimal right basilar atelectasisThe remainder of the lungs appear clear of acute infiltrate.Small left pleural effusion.Heart is borderline enlarged. Aorta is tortuous Blood cultures, urine cultures, trend lactic, this vital signs Patient treated with NS 0.9% IV (30 ml/kg) 30 ml/kg Route: IV; Rate: bolus; Site: right forearm; Cipro, Flagyl Hypokalemia Trend electrolytes replace as needed Acute on chronic kidney injury acute on chronic kidney injury unknown baseline BUN 29, creatinine 1.12, estimated GFR 50 Normal saline, trend kidney function, avoid nephrotoxic agents 11 millimeter calcified splenic arterial aneurysm EKG Rate is 105 beats/min. QRS [place] is Normal. AL interval is normal at 186 msec. QRS interval is normal at 68 msec. QT interval is prolonged at 396 msec. No Q waves.Clinical impression: Sinus tachycardia with frequent premature ventricular complexes. BP 103 / 48; Pulse 106; Resp 20; Temp 99.9(O); Pulse Ox 90% on R/A; Weight 72.57 kg; Resume appropriate home medications for hypertension Dementia Chronic pain Venous insufficiency Spondylosis lumbar spine resulting in spinal stenosis Small to moderate hiatal hernia Supportive care, fall precautions Resume appropriate home meds DVT prophylaxis heparin Full code Diet cardiac Discharge Plan: [facility] Plan to discharge in: 24 Hours - Advance Directives Does patient have a Living Will: No Does patient have a Durable POA for Healthcare: No - Code Status/Comfort Care Code Status: Full Code Physician Review: Patient Assessed, Agree with Above Assessment and Plan Critical Care: No Time Spent Managing Pts Care (In Minutes): 50
[2022-10-29] MEDS ORDERED: ALPRAZOLAM 0.25 MG TABLET PO PRN (13:33)
[2022-10-29] MEDS ORDERED: ONDANSETRON 4 MG/2 ML VIAL IV PRN (13:33)
[2022-10-29] MEDS ORDERED: ACETAMINOPHEN 500 MG TAB PO PRN (13:33)
[2022-10-29] MEDS ORDERED: NA CHLORIDE 0.9% 1,000 ML IV SCH (14:00)
[2022-10-29] MEDS: Ciprofloxacin 200mg IV 200 MG/100 ML IV.SOLN. IV SCH ×2 (14:00→20:32)
[2022-10-29] MEDS: METRONIDAZOLE 500mg IVPB 500 MG/100 ML BAG IV SCH ×2 (14:00→21:07)
[2022-10-29] MEDS: HEPARIN 5000 UNIT/ML 1 ML VIAL SQ SCH (17:14)
[2022-10-29 17:45] VITALS: BMI 26.6
--- NOTE | 2022-10-29 18:10 | P.CNS ---
Date of Consult: 10/29/22 Reason for Consult: RIGO Requesting Physician: Aydin Baca Chief Complaint: N/V/D History of Present Illness: 82-year-old female with a past medical history of dementia, venous insufficiency, left knee pain, chronic pain presents to the emergency room via EMS from [facility] for nausea vomiting diarrhea. brother is at bedside is primary historian he reports patient was transported to the emergency room for fever started last night. Per ER note patient was nausea vomiting diarrhea with a fever of 100.3 per EMS. No reported cough, shortness of breath, abdominal pain, chest pain. Edema. HPI limited due to patient confusion/dementia. Plan to admit for - Infectious gastroenteritis and colitis, unspecified Severe sepsis without septic shock Patient treated with NS 0.9% IV (30 ml/kg) 30 ml/kg Route: IV; Rate: bolus; Site: right forearm; Cipro, Flagyl. ER lab evaluation lactic 3.0, potassium hypokalemia 3.1, acute on chronic kidney injury unknown baseline BUN 29, creatinine 1.12, estimated GFR 50 blood glucose 127, hypoalbumin 2.5, leukocytosis WBCs 11.20, early left shift at 95.0, UA leukoesterase 75, 2+ blood, SARS Cov 2 negative Chest x-ray FINDINGS: Minimal right basilar atelectasisThe remainder of the lungs appear clear of acute infiltrate.Small left pleural effusion.Heart is borderline enlarged. Aorta is tortuous CT of the abdomen pelvis IMPRESSION: Mild tree-in-bud opacities right lower lobe may indicate an atypical pneumonia Fluid within nondilated small and large bowel may indicate an enteritis. Mild prominence of the common bile duct probably physiologic. 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 QRS [place] is Normal. SC interval is normal at 186 msec. QRS interval is normal at 68 msec. QT interval is prolonged at 396 msec. No Q waves.Clinical impression: Sinus tachycardia with frequent premature ventricular complexes. 09:10 This 82 yrs old Female presents to ER via EMS with complaints of N/V/D, fever, jh7 hypotension. 09:10 The patient presents to the emergency department with nausea, vomiting, diarrhea. jh7 Onset: The symptoms/episode began/occurred yesterday. Associated signs and symptoms: Pertinent positives: diarrhea, fever, nausea, vomiting, Pertinent negatives: abdominal pain. 82-year-old female presents from [facility] for nausea, vomiting, diarrhea, fever, and hypotension. The [facility] staff reports that symptoms began last night. The patient has a history of dementia, anxiety, venous insufficiency, and chr onic back pain. EMS reports hypotension with systolic blood pressure in the 90s.. Poor historian. Allergies No Known Allergies Allergy (Verified 06/04/21 03:58) Home medications list reviewed: Yes Home Medications: Acetaminophen 500 mg PO Q6HP PRN 04/14/21 Mirabegron [Myrbetriq] 50 mg PO DAILY 04/14/21 Clopidogrel Bisulfate [Plavix*] 75 mg PO DAILY 06/09/21 Collagenase [Santyl Ointment*] 1 appl TOP DAILY 06/09/21 hydroCHLOROthiazide [Hydrochlorothiazide*] 12.5 mg PO DAILY 06/09/21 Ceftriaxone [Rocephin] 2,000 mg IV DAILY #14 vial 06/16/21 Vancomycin/Water For Inj (Peg) [Vancomycin 750 mg/150 ml Bag] 750 mg IV DAILY #14 piggyback 06/16/21 - Past Medical/Surgical History Diabetic: No -: Overactive Bladder -: Lymphedema -: Depression -: Venous Insufficiency -: Appendectomy -: Cholecystectomy Psychosocial/ Personal History: Patient lives at [facility]. - Family History Sister Medical History: Diabetes - Social History Smoking Status: Unknown if ever smoked Alcohol use: No CD- Drugs: No Caffeine use: Yes Review of Systems 10-point ROS is otherwise unremarkable General: Fever, Weakness, Malaise Physical Examination Temp Pulse Resp BP Pulse Ox 101.3 F H 93 H 20 125/58 L 91 10/29/22 17:14 10/29/22 17:02 10/29/22 17:02 10/29/22 17:02 10/29/22 17:02 General: Cooperative, Mild distress HEENT: Atraumatic Neck: Supple Respiratory: Normal air movement Cardiovascular: No edema, Regular rate/rhythm Gastrointestinal: Soft and benign, Non-distended Musculoskeletal: No clubbing, No contractures Integumentary: No rashes, No cyanosis Neurological: Normal speech Laboratory Data (last 24 hrs) 10/29/22 10/29/22 10/29/22 10:15 10:15 10:15 WBC 11.20 H Hgb 13.0 Hct 37.6 Plt Count 178 PT 14.1 H INR 1.28 APTT 32.3 Sodium 139 Potassium 3.1 L BUN 29 H Creatinine 1.12 H Glucose 127 H Total Bilirubin 1.0 AST 32 ALT 18 Alkaline Phosphatase 89 Imagings Data: EXAM DESCRIPTION: Yan[place] Single View10/29/2022 11:31 am CLINICAL HISTORY: Fever COMPARISON: 2021 FINDINGS: Minimal right basilar atelectasis The remainder of the lungs appear clear of acute infiltrate. Small left pleural effusion. Heart is borderline enlarged. Aorta is tortuous EXAM DESCRIPTION: CT - Abdomen Pelvis W Contrast - 10/29/2022 11:28 am CLINICAL HISTORY: Abdominal pain COMPARISON: none. TECHNIQUE: Computed axial tomography of the abdomen pelvis was obtained. 100 cc Isovue-300 was administered intravenously. Oral contrast was not requested which limits evaluation of bowel and appendix All CT scans are performed using dose optimization technique as appropriate and may include automated exposure control or mA/KV adjustment according to patient size. FINDINGS: Small left pleural effusion. Mild tree-in-bud opacities right lower lobe Small to moderate hiatal hernia. The gallbladder is not seen and presumably has been resected. Mild prominence of the common bile duct. Pancreas, adrenals, spleen, kidneys and liver unremarkable Fluid within nondilated large and small bowel. 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 Mild prominence of the common bile duct probably physiologic. This should be be correlated clinically and with appropriate lab values Conclusions/Impression: Stage I RIGO likely due to hypovolemia -No NSAIDs -Change IVF to LR Hypokalemia in the setting of HCTZ -Replete as ordered Hx Lymphedema Venous insufficiency -Low sodium diet -Keep legs elevated Hypoalbuminemia -Consider protein supplementation Acute cystitis Enteritis -Continue abx -Follow up cultures Hospitalist and ER notes reviewed Thank you kindly for the consultation
[2022-10-29] MEDS ORDERED: POTASSIUM CL SA 10 MEQ TAB PO ONE (19:15)
[2022-10-29] MEDS: Ringers Lactate 1,000 ML IV SCH (20:32)
[2022-10-30] MEDS: HEPARIN 5000 UNIT/ML 1 ML VIAL SQ SCH ×3 (01:24→17:07)
[2022-10-30 03:49] LABS: Absolute Lymphocytes (CBC) 0.3 K/uL (0.7-4.9); Hematocrit 32.4 % (36.0-45.0); Lymphocytes % 5.3 % (15.3-44.8); MCV 91.3 fL (80-100); MPV 7.1 fL (7.6-11.3); Platelets 134 thou/uL (152-406); RBC Red Blood Cell Count 3.55 M/uL (3.86-4.86)
[2022-10-30 04:00] LABS: Magnesium 1.7 mg/dL (1.6-2.4); Phosphorus 2.4 mg/dL (2.5-4.9); Uric Acid 4.5 mg/dL (2.6-6.0)
[2022-10-30] MEDS: Ringers Lactate 1,000 ML IV SCH ×4 (05:00→23:02)
[2022-10-30] MEDS: METRONIDAZOLE 500mg IVPB 500 MG/100 ML BAG IV SCH (05:02)
[2022-10-30] MEDS ORDERED: POTASSIUM CL SA 10 MEQ TAB PO ONE (05:16)
[2022-10-30] MEDS ORDERED: POTASS/SODIUM PHOSPHATE 1 PKT POWD.PACK PO SCH (08:00)
[2022-10-30] MEDS ORDERED: MAGNESIUM SULFATE 1 gm IVPB 1 GM/100 ML BAG IV ONE (08:00)
[2022-10-30] MEDS: Ciprofloxacin 200mg IV 200 MG/100 ML IV.SOLN. IV SCH (08:23)
[2022-10-30] MEDS: POTASS/SODIUM PHOSPHATE 1 PKT POWD.PACK PO SCH ×3 (08:23→10:00)
--- NOTE | 2022-10-30 12:10 | P.PN ---
Subjective Date of Service: 10/30/22 Chief Complaint: N/V/D No new events overnight per RN. She is unable to provide any history. No family available for collateral history. Vital signs seem to be improving. No further history available at this time. Review of Systems is unable to be obtained Physical Examination - Vital Signs Temperature: 98.5 F Blood Pressure: 106/63 Pulse: 78 Respirations: 16 Pulse Ox (%): 91 - Physical Exam General: In no apparent distress, Oriented x1 (to self), Confused HEENT: Atraumatic, Mucous membr. moist/pink, Sclerae nonicteric Neck: JVD not distended Respiratory: Clear to auscultation bilaterally, Normal air movement Cardiovascular: No edema, Regular rate/rhythm, Normal S1 S2, No gallops, No rubs, No murmurs Gastrointestinal: Normal bowel sounds, Soft and benign, Non-distended, No tenderness, No rebound, No guarding Musculoskeletal: No clubbing Integumentary: Other (right 4th toe appears husky with concern for gangrene) Neurological: Dementia - Studies Microbiology Data (last 24 hrs): 10/29/22 10:15 Nasopharnyx Influenza Type A Antigen Screen - Final 10/29/22 10:15 Nasopharnyx Influenza Type B Antigen Screen - Final Assessment And Plan - Plan # Severe Sepsis likely secondary to Atypical Pneumonia vs possible Infectious Enteritis She met SIRS criteria based on temperature > 100.9 F, HR > 90 bpm, and WBC > 12,000, and the suspected source is pulmonary +/- gastrointestinal. Severe sepsis is suspected due to concern for tissue hypoperfusion/organ dysfunction based on lactic acid > 2 mmol/L. - Evaluation: - Urinalysis: 75 leukocyte esterase, 20-50 WBCs, trace protein - Chest x-ray = "minimal right basilar atelectasis. The remainder of the lungs appear clear of acute infiltrate. Small left pleural effusion. Heart is b orderline enlarged. Aorta is tortuous." - CT abdomen/pelvis = "mild tree-in-bud opacities right lower lobe may indicate an atypical pneumonia. Fluid within nondilated small and large bowel may indicate an enteritis. Mild prominence of the common bile duct probably physiologic. This should be be correlated clinically and with appropriate lab values." - Sepsis order set was initiated - Lactate trend: 3.0 -> 2.6 - Blood cultures drawn - Broad spectrum antibiotics started: Ciprofloxacin + Metronidazole -> Vancomycin + Levofloxacin - In regards to fluids: - 30 mL/kg of IV fluids was not administered given SBP > 90, MAP > 65, lactic acid < 4 # Suspect Right 4th Toe Gangrene - Right 4th toe appears husky, with concern for ischemia/gangrene - Consulted General Surgery and spoke with Dr. Ortiz - recommendations appreciated - Ordered right foot x-ray and right lower extremity arterial Doppler # Spinal Stenosis - Noted on CT scan - Unable to verify symptoms at this time, but no obvious urinary/bowel incontinence - Monitor closely # Small-Moderate Hiatal Hernia # Calcified Splenic Arterial Aneurysm (11 mm) - Outpatient follow-up # Dementia - Currently unable to provide history. Degree of dementia is unknown at this time. Aydin Baca M.D.
--- NOTE | 2022-10-30 12:48 | RAD REPORT ---
EXAM DESCRIPTION: RAD - Foot Right 3 View - 10/30/2022 12:31 pm CLINICAL HISTORY: eval for osteomyelitis Pain and swelling COMPARISON: Foot Right 3 View dated 06/03/2021; Foot Right 3 View dated 01/29/2021 FINDINGS: Advanced osteopenia. Moderate flatfoot deformity with moderate calcaneal spurs. Hardware i s present distal ankle. Soft tissue swelling is seen involving the great toe there is no definitive e vidence of osteomyelitis seen. MRI could be performed for more sensitive assessment.
[2022-10-30] MEDS: VANCOMYCIN 1.25 GM in NA CHLORIDE 0.9% 250 ML IVPB SCH (13:44)
--- NOTE | 2022-10-30 15:24 | EKG ---
Test Date: 2022-10-29 Test Time: 09:50:18 Certified Public Accountant: MARTELL MEASUREMENT RESULTS: Intervals: Rate: 105 MA: 186 QRSD: 68 QT: 396 QTc: 523 [place]: P: MA: 186 QRS: 76 T: 65 INTERPRETIVE STATEMENTS: Sinus tachycardia Low voltage QRS Nonspecific ST abnormality Prolonged QT Abnormal ECG Compared to ECG 08/02/2022 05:18:23 Low QRS voltage now present ST (T wave) deviation now present Prolonged QT interval now present Sinus rhythm no longer present Electronically Signed On 10-30-22 15:21:52 CDT by Ras Macias
--- NOTE | 2022-10-30 15:27 | RAD REPORT ---
EXAM DESCRIPTION: US - Lower Extremity Artery Uni Ltd - 10/30/2022 3:21 pm CLINICAL HISTORY: ischemic digit Leg pain COMPARISON: Lower Extremity Artery Uni Ltd dated 01/30/2022 FINDINGS: Right common femoral artery, superficial femoral artery are triphasic. Moderate popliteal, posterior tibial and dorsalis pedis are monophasic. No complete occlusion or high-grade stenosis. IMPRESSION: Moderate peripheral vascular disease below the right popliteal level.
--- NOTE | 2022-10-30 16:56 | P.PN ---
(S) Delayed entry note, pt seen lying comfortably in bed this AM, no acute complaints (O) Vitals reviewed in the EMR General: Cooperative, Mild distress HEENT: Atraumatic Neck: Supple Respiratory: Normal air movement, non tachypnec Cardiovascular: No edema, Regular rate/rhythm Gastrointestinal: Soft and benign, Non-distended Integumentary: No rashes Neurological: Normal speech, awake, alert Imagings Data: EXAM DESCRIPTION: Vidhit Single View10/29/2022 11:31 am CLINICAL HISTORY: Fever COMPARISON: 2021 FINDINGS: Minimal right basilar atelectasis The remainder of the lungs appear clear of acute infiltrate. Small left pleural effusion. Heart is borderline enlarged. Aorta is tortuous EXAM DESCRIPTION: CT - Abdomen Pelvis W Contrast - 10/29/2022 11:28 am CLINICAL HISTORY: Abdominal pain COMPARISON: none. TECHNIQUE: Computed axial tomography of the abdomen pelvis was obtained. 100 cc Isovue-300 was administered intravenously. Oral contrast was not requested which limits evaluation of bowel and appendix All CT scans are performed using dose optimization technique as appropriate and may include automated exposure control or mA/KV adjustment according to patient size. FINDINGS: Small left pleural effusion. Mild tree-in-bud opacities right lower lobe Small to moderate hiatal hernia. The gallbladder is not seen and presumably has been resected. Mild prominence of the common bile duct. Pancreas, adrenals, spleen, kidneys and liver unremarkable Fluid within nondilated large and small bowel. 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 Mild prominence of the common bile duct probably physiologic. This should be be correlated clinically and with appropriate lab values Conclusions/Impression: Serum Cr raised above reference range. Stage 1 RIGO 2nd to mild pre renal azotemia, other -Cont gentle hydration Hypokalemia in the setting of HCTZ -Hold thiazide diuretics for now, replete Abnormal findings in urine, presumed acute cystitis -Continue abx -Follow up cultures Kurt Kearney MD, MARISOL
[2022-10-30 17:29] LABS: Specific Gravity > 1.030 (1.005-1.030); Urine Bacteria None Seen /HPF (<20); Urine Bilirubin NEGATIVE (Negative); Urine Blood 1+ (Negative); Urine Clarity Turbid (Clear); Urine Color Yellow (Yellow); Urine Glucose NEGATIVE (Negative); Urine Mucus Slight /HPF (None Seen); Urine Protein 1+ (Negative); Urine Urobilinogen Normal (Normal); Urine pH 5.5 (5.0-7.0)
[2022-10-30] MEDS ORDERED: Levofloxacin 750mg IV 750 MG/150 ML BAG IV SCH (20:00)
--- NOTE | 2022-10-30 20:58 | P.CNS ---
Date of Consult: 10/30/22 PC: I was asked to see this 82-year-old female in regards to vascular insufficiency to her fourth toe right foot. HPC: Patient apparently presented to the emergency room with nausea vomiting and hypotension. On work-up was also found to have compromised circulation to the fourth toe of her right foot. She also has some neves on her feet, consistent with a patient at bedrest. PSHx: Previous abdominal surgeries including appendectomy and cholecystectomy. PMHx: Dementia, chronic lymphedema Social Hx: No known allergies Sys R: Patient is very pleasant, but has mild dementia, her responses to her general health are vague and not accurate. O/E: Vital signs are stable HEENT: NAD Chest: Chest movement is equal bilaterally Abd: Intact [place]: On inspection of the right foot, at the fourth toe shows evidence of vascular compromise to the distal phalanx. There is no pus, or under lying osteomyelitis per the foot x-rays. Data: Vasculature is apparently adequate quit per Doppler studies Impression: Vascular compromise to the fourth toe on her right foot Plan: This patient is not in any acute distress at the moment. While she does have a fourth toe that shows lack of blood supply, there is no evidence of any source of sepsis. Due to is going to gradually demarcate. This may take a few days. We will follow this with you. I do not have any surgical intent on this patient at this time. But we will follow with you.
[2022-10-30] MEDS ORDERED: PROMETHAZINE INJ 25 MG/ML AMP IV ONE (22:51)
[2022-10-31] MEDS: HEPARIN 5000 UNIT/ML 1 ML VIAL SQ SCH ×3 (00:04→15:56)
[2022-10-31] MEDS: Ringers Lactate 1,000 ML IV SCH (03:19)
[2022-10-31 03:54] LABS: Absolute Lymphocytes (CBC) 0.7 K/uL (0.7-4.9); Hematocrit 31.8 % (36.0-45.0); Lymphocytes % 22.4 % (15.3-44.8); MCV 91.5 fL (80-100); MPV 7.2 fL (7.6-11.3); Platelets 132 thou/uL (152-406); RBC Red Blood Cell Count 3.48 M/uL (3.86-4.86)
[2022-10-31 04:09] LABS: Potassium 3.5 mEq/L (3.5-5.1)
[2022-10-31 04:42] LABS: Phosphorus 1.5 mg/dL (2.5-4.9)
[2022-10-31] MEDS: POTASS/SODIUM PHOSPHATE 1 PKT POWD.PACK PO SCH ×4 (06:14→20:38)
[2022-10-31] MEDS ORDERED: POTASSIUM CL SA 10 MEQ TAB PO ONE (09:00)
[2022-10-31] MEDS: VANCOMYCIN 1.25 GM in NA CHLORIDE 0.9% 250 ML IVPB SCH (12:37)
--- NOTE | 2022-10-31 13:28 | P.PN ---
(S) Pt has no acute complaints, poor insight into her medical issues, upset that her brother may have referred her to the hospital (O) Vitals reviewed in the EMR General: Cooperative, NAD HEENT: Atraumatic Neck: Supple Respiratory: Normal air movement, non tachypnec Cardiovascular: No edema, Regular rate/rhythm Gastrointestinal: Soft and benign, Non-distended Integumentary: b/l feet wounds, superficial ulcers, Rt foot 4th toe swelling/discoloration noted Neurological: Normal speech, awake, responsive but demonstrates conversational confusion Imagings Data: EXAM DESCRIPTION: Yan[facility] Single View10/29/2022 11:31 am CLINICAL HISTORY: Fever COMPARISON: 2021 FINDINGS: Minimal right basilar atelectasis The remainder of the lungs appear clear of acute infiltrate. Small left pleural effusion. Heart is borderline enlarged. Aorta is tortuous EXAM DESCRIPTION: CT - Abdomen Pelvis W Contrast - 10/29/2022 11:28 am CLINICAL HISTORY: Abdominal pain COMPARISON: none. TECHNIQUE: Computed axial tomography of the abdomen pelvis was obtained. 100 cc Isovue-300 was administered intravenously. Oral contrast was not requested which limits evaluation of bowel and appendix All CT scans are performed using dose optimization technique as appropriate and may include automated exposure control or mA/KV adjustment according to patient size. FINDINGS: Small left pleural effusion. Mild tree-in-bud opacities right lower lobe Small to moderate hiatal hernia. The gallbladder is not seen and presumably has been resected. Mild prominence of the common bile duct. Pancreas, adrenals, spleen, kidneys and liver unremarkable Fluid within nondilated large and small bowel. 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 Mild prominence of the common bile duct probably physiologic. This should be be correlated clinically and with appropriate lab values Conclusions/Impression: Serum Cr raised above reference range. Stage 1 RIGO 2nd to mild pre renal azotemia, other -Improved, will d/c IVF Hypokalemia, hypophoshatemia in the setting of HCTZ -Hold thiazide diuretics as they do not appear warranted. Will replete K and Phos. No sig peripheral edema at this time Abnormal findings in urine, presumed acute cystitis. Streptococcus bacteruiria -Pt on broad spectrum Abx to cover for feet wound which should cover for above Kurt Kearney MD, MARISOL
--- NOTE | 2022-10-31 18:30 | P.PN ---
Date of Service: 10/31/22 S: No specific complaints today Oh: Fourth toe is still continues to demarcate, no evidence of obvious infection A: Fourth toe with obvious vascular compromise on the right foot P: When the patient is medically cleared for discharge, the patient may follow- up with us at the wound care center if she likes. She will probably eventually lose this toe, the question is how much can we can possibly save to get a good closure on her foot
--- NOTE | 2022-10-31 21:12 | P.PN ---
Subjective Date of Service: 10/31/22 Chief Complaint: N/V/D She appears well this morning. She is now alert and oriented x 3. Appreciate surgery recommendations regarding toe. Blood pressure is improving. She denies any chest pain, palpitations, or shortness of breath. Review of Systems 10-point ROS is otherwise unremarkable Physical Examination - Vital Signs Temperature: 98.3 F Blood Pressure: 135/64 Pulse: 72 Respirations: 16 Pulse Ox (%): 95 - Physical Exam General: Alert, In no apparent distress, Oriented x3 HEENT: Atraumatic, Mucous membr. moist/pink, Sclerae nonicteric Neck: JVD not distended Respiratory: Clear to auscultation bilaterally, Normal air movement Cardiovascular: No edema, Regular rate/rhythm, Normal S1 S2, No gallops, No rubs, No murmurs Gastrointestinal: Normal bowel sounds, Soft and benign, Non-distended, No tenderness, No rebound, No guarding Musculoskeletal: No clubbing Integumentary: Other (right 4th toe appears husky with concern for gangrene) Neurological: Normal speech, Normal affect Assessment And Plan - Plan # Severe Sepsis likely secondary to Atypical Pneumonia vs possible Infectious Enteritis She met SIRS criteria based on temperature > 100.9 F, HR > 90 bpm, and WBC > 12,000, and the suspected source is pulmonary +/- gastrointestinal. Severe sepsis is suspected due to concern for tissue hypoperfusion/organ dysfunction based on lactic acid > 2 mmol/L. - Evaluation: - Urinalysis: 75 leukocyte esterase, 20-50 WBCs, trace protein - Chest x-ray = "minimal right basilar atelectasis. The remainder of the lungs appear clear of acute infiltrate. Small left pleural effusion. Heart is borderline enlarged. Aorta is tortuous." - CT abdomen/pelvis = "mild tree-in-bud opacities right lower lobe may indicate an atypical pneumonia. Fluid within nondilated small and large bowel may indicate an enteritis. Mild prominence of the common bile duct probably physiologic. This should be be correlated clinically and with appropriate lab values." - Sepsis order set was initiated - Lactate trend: 3.0 -> 2.6 - Blood cultures drawn - Broad spectrum antibiotics started: Ciprofloxacin + Metronidazole -> Vancomycin + Levofloxacin - In regards to fluids: - 30 mL/kg of IV fluids was not administered given SBP > 90, MAP > 65, lactic acid < 4 # Suspect Right 4th Toe Gangrene - Right 4th toe appears husky, with concern for ischemia/gangrene - Consulted General Surgery and spoke with Dr. Ortiz - recommendations appreciated - Right foot x-ray = "advanced osteopenia. Moderate flatfoot deformity with moderate calcaneal spurs. Hardware is present distal ankle. Soft tissue swelling is seen involving the great toe there is no definitive evidence of osteomyelitis seen. 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 Degree of dementia is unknown at this time. Aydin Baca M.D.
[2022-11-01] MEDS: HEPARIN 5000 UNIT/ML 1 ML VIAL SQ SCH ×3 (00:05→18:19)
[2022-11-01 04:29] LABS: Absolute Lymphocytes (CBC) 0.9 K/uL (0.7-4.9); Hematocrit 35.5 % (36.0-45.0); Lymphocytes % 28.9 % (15.3-44.8); MCV 91.3 fL (80-100); MPV 7.4 fL (7.6-11.3); Platelets 137 thou/uL (152-406); RBC Red Blood Cell Count 3.89 M/uL (3.86-4.86)
[2022-11-01 04:49] LABS: Magnesium 1.8 mg/dL (1.6-2.4); Phosphorus 1.6 mg/dL (2.5-4.9); Potassium 3.5 mEq/L (3.5-5.1)
[2022-11-01] MEDS: POTASS/SODIUM PHOSPHATE 1 PKT POWD.PACK PO SCH ×3 (06:40→10:37)
[2022-11-01] MEDS ORDERED: MAGNESIUM SULFATE 1 gm IVPB 1 GM/100 ML BAG IV ONE (07:00)
[2022-11-01 07:21] LABS: C.diff Antigen/Toxin Ag neg : Tox neg (NEG : NEG)
[2022-11-01] MEDS: Levofloxacin 750mg IV 750 MG/150 ML BAG IV SCH (08:18)
[2022-11-01] MEDS ORDERED: POTASSIUM CL SA 10 MEQ TAB PO ONE (09:00)
[2022-11-01] MEDS: VANCOMYCIN 1.25 GM in NA CHLORIDE 0.9% 250 ML IVPB SCH (13:00)
[2022-11-01] MEDS: VANCOMYCIN 1.5 GM in NA CHLORIDE 0.9% 500 ML IVPB SCH (15:35)
--- NOTE | 2022-11-01 16:49 | P.PN ---
Subjective Date of Service: 11/01/22 Chief Complaint: N/V/D She was seen this morning alongside bedside RN, Berenice. She is more confused today, now alert and oriented x 1-[address]. Urine culture has returned positive for multi-drug resistant Enterococcus Faecalis. She denies any chest pain, palpitations, or shortness of breath. Review of Systems is unable to be obtained Physical Examination - Vital Signs Temperature: 97.7 F Blood Pressure: 137/69 Pulse: 78 Respirations: 16 Pulse Ox (%): 92 - Studies Microbiology Data (last 24 hrs): 10/29/22 09:45 Catheterized Urine Independence Count - Final >100,000 CFU/ML. 10/29/22 09:45 Catheterized Urine - Final Enterococcus Faecalis Assessment And Plan - Plan Physical Exam General: Alert, In no apparent distress, Oriented x1-2 to person and [address] ([facility], but does not know city or state) HEENT: Atraumatic, Mucous membr. moist/pink, Sclerae nonicteric Neck: JVD not distended Respiratory: Clear to auscultation bilaterally, Normal air movement Cardiovascular: No edema, Regular rate/rhythm, No murmurs Gastrointestinal: Normal bowel sounds, Soft, Non-distended, No tenderness Musculoskeletal: No clubbing Integumentary: Other (right 4th toe appears husky with concern for gangrene) Neurological: Normal speech, Normal affect # Severe Sepsis likely secondary to Multi-Drug Resistant Enterococcus Faecalis Urinary Tract Infection vs Atypical Pneumonia vs possible Infectious Enteritis She met SIRS criteria based on temperature > 100.9 F, HR > 90 bpm, and WBC > 12,000, and the suspected source is pulmonary +/- gastrointestinal. Severe sepsis is suspected due to concern for tissue hypoperfusion/organ dysfunction based on lactic acid > 2 mmol/L. - Evaluation: - Urinalysis: 75 leukocyte esterase, 20-50 WBCs, trace protein - Chest x-ray = "minimal right basilar atelectasis. The remainder of the lungs appear clear of acute infiltrate. Small left pleural effusion. Heart is borderline enlarged. Aorta is tortuous." - CT abdomen/pelvis = "mild tree-in-bud opacities right lower lobe may indicate an atypical pneumonia. Fluid within nondilated small and large bowel may indicate an enteritis. Mild prominence of the common bile duct probably physiologic. This should be be correlated clinically and with appropriate lab values." - Sepsis order set was initiated - Lactate trend: 3.0 -> 2.6 - Blood cultures drawn - Broad spectrum antibiotics started: Ciprofloxacin + Metronidazole -> Vancomycin + Levofloxacin - In regards to fluids: - 30 mL/kg of IV fluids was not administered given SBP > 90, MAP > 65, lactic acid < 4 # Suspect Right 4th Toe Gangrene - Right 4th toe appears husky, with concern for ischemia/gangrene - Consulted General Surgery and spoke with Dr. Ortiz - recommendations appreciated - Right foot x-ray = "advanced osteopenia. Moderate flatfoot deformity with moderate calcaneal spurs. Hardware is present distal ankle. Soft tissue swelling is seen involving the great toe there is no definitive evidence of osteomyelitis seen. 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 Degree of dementia is unknown at this time. Aydin Baca M.D.
--- NOTE | 2022-11-01 18:45 | P.PN ---
Date of Service: 11/02/22 Subjective: Patient is clinically doing better. Symptoms are improved. Continue with antibiotic regimen. Possible discharge to [facility]. Physical Exam: Vitals: Reviewed Gen: Alert, Oriented x1-[address], NAD CV: regular rate & rhythm, no edema Pulm: Respirations are clear bilaterally Abd: soft, nontender, nondistended Integumentary: right 4th toe appears husky with concern for gangrene Neuro: normal speech, normal affect Problem List: Severe Sepsis likely secondary to MDR Enterococcus Faecalis UTI vs Atypical Pneumonia vs possible Infectious Enteritis Suspect Right 4th Toe Gangrene RIGO Spinal Stenosis Small-Moderate Hiatal Hernia Calcified Splenic Arterial Aneurysm (11 mm) Dementia Plan: Continue with POC as mentioned below: ID consultation appreciated Continue with abx regimen: Vancomycin / Levofloxacin General surgery consulted MRI reviewed PRN xanax Nephrology consulted Monitor renal function Continue with IV steroids
[2022-11-02] MEDS: HEPARIN 5000 UNIT/ML 1 ML VIAL SQ SCH ×3 (00:49→16:18)
[2022-11-02 06:51] LABS: Potassium 3.6 mEq/L (3.5-5.1)
[2022-11-02] MEDS: Levofloxacin 750mg IV 750 MG/150 ML BAG IV SCH (08:47)
[2022-11-02] MEDS: POTASS/SODIUM PHOSPHATE 1 PKT POWD.PACK PO SCH ×5 (08:48→22:40)
[2022-11-02] MEDS ORDERED: POTASSIUM 25 MEQ EFFERV TAB PO ONE (09:00)
--- NOTE | 2022-11-02 09:33 | P.CNS ---
Date of Consult: 11/02/22 Reason for Consult: possible osteomyelitis, UTI Chief Complaint: N/V/D History of Present Illness: Patient is an 82-year-old female with a past medical history of dementia, venous insufficiency, lymphedema who [facility] the [facility] from [facility] with compla ints of nausea vomiting and diarrhea. Patient admitted for severe sepsis likely secondary to atypical pneumonia. There is also concern for infection of right fourth toe osteomyelitis. ID consulted. Allergies No Known Allergies Allergy (Verified 06/04/21 03:58) Home medications list reviewed: Yes Home Medications: Acetaminophen 500 mg PO Q6HP PRN 04/14/21 Mirabegron [Myrbetriq] 50 mg PO DAILY 04/14/21 Clopidogrel Bisulfate [Plavix*] 75 mg PO DAILY 06/09/21 Collagenase [Santyl Ointment*] 1 appl TOP DAILY 06/09/21 hydroCHLOROthiazide [Hydrochlorothiazide*] 12.5 mg PO DAILY 06/09/21 Ceftriaxone [Rocephin] 2,000 mg IV DAILY #14 vial 06/16/21 Vancomycin/Water For Inj (Peg) [Vancomycin 750 mg/150 ml Bag] 750 mg IV DAILY #14 piggyback 06/16/21 - Past Medical/Surgical History Diabetic: No -: Overactive Bladder -: Lymphedema -: Depression -: Venous Insufficiency -: Appendectomy -: Cholecystectomy Psychosocial/ Personal History: Patient lives at [facility]. - Family History Sister Medical History: Diabetes - Social History Smoking Status: Unknown if ever smoked Alcohol use: No CD- Drugs: No Caffeine use: Yes Review of Systems Gastrointestinal: Unremarkable Genitourinary: Unremarkable Musculoskeletal: Foot Pain (right foot ) Physical Examination Temp Pulse Resp BP Pulse Ox 97.9 F 72 16 121/62 93 11/02/22 08:00 11/02/22 08:00 11/02/22 08:00 11/02/22 08:00 11/02/22 08:00 General: Alert, In no apparent distress, Oriented x2 HEENT: Atraumatic, Normocephalic Neck: Supple, JVD not distended Respiratory: Normal air movement (on room air), Diminished Cardiovascular: No edema, Normal S1 S2, Abnormal pulses (weak DP and PT pulses) Gastrointestinal: Normal bowel sounds, Soft and benign Musculoskeletal: No clubbing Integumentary: Tenderness/swelling (right fourth toe), Arterial ulcer (right second and third toe) Laboratory data -Reviewed Microbiology data -Reviewed Imagings Data: Reviewed Conclusions/Impression: Problem list Severe sepsis Atypical pneumonia Acute Cystitis Enteritis Gangrene of right fourth toe Dementia Moderate PCM Severe sepsis secondary to atypical pneumonia vs infectious enteritis - XR Chest: "Minimal right basilar atelectasis. The remainder of the lungs appear clear of acute infiltrate. Small left pleural effusion. Heart is borderline enlarged. Aorta is tortuous." - CT abdomen/pelvis: "Mild tree-in-bud opacities right lower lobe may indicate an atypical pneumonia. Fluid within nondilated small and large bowel may i ndicate an enteritis. Mild prominence of the common bile duct probably physiologic. This should be be correlated clinically and with appropriate lab values." -Patient was started on ciprofloxacin and metronidazole on 10/29. Switch to Levaquin and vancomycin on 10/30. - Currently on Levaquin (started 10/30) Acute Cystitis - urine culture 10/29: Enterococcus faecalis - Currently on Vancomycin (started 11/01) Arterial Ulcer Right 2nd and 3rd toe - General surgery consulted, no surgical intervention at this time - XR right foot: "advanced osteopenia. Moderate flatfoot deformity with moderate calcaneal spurs. Hardware is present distal ankle. Soft tissue swelling is seen involving the great toe there is no definitive evidence of osteomyelitis seen. MRI could be performed for more sensitive assessment." - Right lower extremity arterial Doppler: "moderate peripheral vascular disease below the right popliteal level." Blood cultures 10/29: No growth to date Leukocytosis resolved. Afebrile since 10/29. Recommendations - Acute cystitis: Continue antibiotic therapy x 5 days (10/30-11/04) - Currently on Vancomycin, continue - Pneumonia: Continue Levaquin x 5 days (10/30-11/04) - Nutritional supplementation - Right 3rd and 4th toe ulcers: apply betadine and cover Case discussed with Louis Iqbal
--- NOTE | 2022-11-02 12:13 | P.PN ---
(S) Pt is tearful and reports wanting to see family, remains confused, unclear baseline but presumed dementia. Denies Rt foot pain, has some cough (O) Vitals reviewed in the EMR General: NAD HEENT: Atraumatic, not needing O2 Neck: Supple Respiratory: Non tachypnec, reduced Rt base Cardiovascular: No edema, Regular rate/rhythm Gastrointestinal: Soft and benign, Non-distended Integumentary: b/l feet wounds, superficial ulcers, Rt foot 4th toe swelling/discoloration noted, dressed Neurological: Normal speech, awake, responsive but demonstrates conversational confusion Imagings Data: EXAM DESCRIPTION: Yaniv Single View10/29/2022 11:31 am CLINICAL HISTORY: Fever COMPARISON: 2021 FINDINGS: Minimal right basilar atelectasis The remainder of the lungs appear clear of acute infiltrate. Small left pleural effusion. Heart is borderline enlarged. Aorta is tortuous EXAM DESCRIPTION: CT - Abdomen Pelvis W Contrast - 10/29/2022 11:28 am CLINICAL HISTORY: Abdominal pain COMPARISON: none. TECHNIQUE: Computed axial tomography of the abdomen pelvis was obtained. 100 cc Isovue-300 was administered intravenously. Oral contrast was not requested which limits evaluation of bowel and appendix All CT scans are performed using dose optimization technique as appropriate and may include automated exposure control or mA/KV adjustment according to patient size. FINDINGS: Small left pleural effusion. Mild tree-in-bud opacities right lower lobe Small to moderate hiatal hernia. The gallbladder is not seen and presumably has been resected. Mild prominence of the common bile duct. Pancreas, adrenals, spleen, kidneys and liver unremarkable Fluid within nondilated large and small bowel. 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 Mild prominence of the common bile duct probably physiologic. This should be be correlated clinically and with appropriate lab values Conclusions/Impression: Serum Cr raised above reference range. Stage 1 RIGO 2nd to mild pre renal azotemia, other -resolved -Improved, did d/c IVF Hypokalemia, hypophoshatemia in the setting of HCTZ -Holding thiazide diuretic. Repleted K and Phos. No sig peripheral edema at this time Abnormal findings in urine, presumed acute cystitis. Enterococcus F bacteriuria -Abx per ID, who are also treating for possible PNA, unspecified organism and LE ulcers. Recommend consolidating Abx Kurt Kearney MD, MARISOL
[2022-11-02] MEDS: VANCOMYCIN 1.5 GM in NA CHLORIDE 0.9% 500 ML IVPB SCH (13:52)
[2022-11-03 00:18] VITALS: O2SAT 95
[2022-11-03] MEDS: HEPARIN 5000 UNIT/ML 1 ML VIAL SQ SCH ×2 (00:32→08:11)
[2022-11-03 06:46] LABS: Absolute Lymphocytes (CBC) 0.9 K/uL (0.7-4.9); Hematocrit 34.6 % (36.0-45.0); Lymphocytes % 16.1 % (15.3-44.8); MCV 90.6 fL (80-100); Platelets 133 thou/uL (152-406); RBC Red Blood Cell Count 3.82 M/uL (3.86-4.86)
[2022-11-03 07:04] LABS: Albumin 2.1 g/dL (3.4-5.0); Bilirubin Total 0.8 mg/dL (0.2-1.0); Magnesium 1.9 mg/dL (1.6-2.4); Phosphorus 2.1 mg/dL (2.5-4.9); Potassium 3.8 mEq/L (3.5-5.1); Protein, Total 5.4 g/dL (6.4-8.2)
[2022-11-03] MEDS: Levofloxacin 750mg IV 750 MG/150 ML BAG IV SCH (08:11)
[2022-11-03] MEDS: POTASS/SODIUM PHOSPHATE 1 PKT POWD.PACK PO SCH (08:11)
--- NOTE | 2022-11-03 09:10 | P.PN ---
Date of Service: 11/03/22 Chief Complaint: N/V/D Subjective: Patient seen and examined at bedside. She denies any nausea, vomiting, diarrhea or abdominal pain. No dysuria, retention, hesitancy or urgency. No chest pain, cough or shortness of breath. Patient's brother at bedside. Physical Examination Temp Pulse Resp BP Pulse Ox 98.7 F 81 18 125/63 95 11/03/22 08:00 11/03/22 08:00 11/03/22 08:00 11/03/22 08:00 11/03/22 08:00 General: Alert, In no apparent distress, Oriented x2 HEENT: Atraumatic, Normocephalic Neck: Supple, JVD not distended Respiratory: Normal air movement. on room air. Diminished at bases. Cardiovascular: No edema, Normal S1 S2. Weak DP and PT pulses Gastrointestinal: Normal bowel sounds, Soft and benign Musculoskeletal: No clubbing Integumentary: Tenderness/swelling of right fourth toe. Arterial ulcer of right second and third toe Laboratory data -Reviewed Microbiology data -Reviewed Imagings Data: - Reviewed Medication list: Reviewed Assessment and plan Problem list Severe sepsis Atypical pneumonia Acute Cystitis Enteritis Gangrene of right fourth toe Dementia Moderate PCM Severe sepsis secondary to atypical pneumonia vs infectious enteritis - XR Chest: "Minimal right basilar atelectasis. The remainder of the lungs appear clear of acute infiltrate. Small left pleural effusion. Heart is borderline enlarged. Aorta is tortuous." - CT abdomen/pelvis: "Mild tree-in-bud opacities right lower lobe may indicate an atypical pneumonia. Fluid within nondilated small and large bowel may indicate an enteritis. Mild prominence of the common bile duct probably physiologic. This should be be correlated clinically and with appropriate lab values." -Patient was started on ciprofloxacin and metronidazole on 10/29. Switch to Levaquin and vancomycin on 10/30. - Currently on Levaquin (started 10/30) Acute Cystitis - urine culture 10/29: Enterococcus faecalis - Currently on Vancomycin (started 11/01) Arterial Ulcer Right 2nd and 3rd toe - General surgery consulted, no surgical intervention at this time - XR right foot: "advanced osteopenia. Moderate flatfoot deformity with moderate calcaneal spurs. Hardware is present distal ankle. Soft tissue swelling is seen involving the great toe there is no definitive evidence of osteomyelitis seen. MRI could be performed for more sensitive assessment." - Right lower extremity arterial Doppler: "moderate peripheral vascular disease below the right popliteal level." Blood cultures 10/29: No growth to date Leukocytosis resolved. Afebrile since 10/29. Recommendations - Pneumonia: Continue Levaquin x 5 days (10/30-11/04). Switch to PO. - Acute cystitis: Antibiotic therapy x 5-7 days - Discontinue Vancomycin - Nutritional supplementation - Right 3rd and 4th toe ulcers: apply betadine and cover Case discussed with Louis Iqbal
[2022-11-03 13:06] VITALS: BP 135/65; TEMP 97.9
--- NOTE | 2022-11-03 19:38 | P.PN ---
Date of Service: 11/03/22 Vital Signs Temp Pulse Resp BP Pulse Ox 97.9 F 76 18 135/65 94 11/03/22 12:00 11/03/22 12:00 11/03/22 12:00 11/03/22 12:00 11/03/22 12:00 Microbiology Results 10/29/22 18:37 Blood - Blood Aerobic Blood Culture - Final No growth in 5 days. 10/29/22 18:37 Blood - Blood Anaerobic Blood Culture - Final No growth in 5 days. 10/29/22 09:30 Blood - Blood Aerobic Blood Culture - Final No growth in 5 days. 10/29/22 09:30 Blood - Blood Anaerobic Blood Culture - Final No growth in 5 days. 10/29/22 10:15 Blood - Blood Aerobic Blood Culture - Final No growth in 5 days. 10/29/22 10:15 Blood - Blood Anaerobic Blood Culture - Final No growth in 5 days. 10/29/22 09:45 Catheterized Urine Innis Count - Final >100,000 CFU/ML. 10/29/22 09:45 Catheterized Urine - Final Enterococcus Faecalis 10/29/22 10:15 Nasopharnyx Influenza Type A Antigen Screen - Final 10/29/22 10:15 Nasopharnyx Influenza Type B Antigen Screen - Final Assessment/ Plan: Nephrology No dyspnea No chest pain No acute events overnight She is concerned that her brother is trying to label her with dementia so that he can manage her affairs Vitals, medications, blood work and imaging reviewed in the chart. General: Cooperative, Mild distress HEENT: Atraumatic Neck: Supple Respiratory: Normal air movement Cardiovascular: No edema, Regular rate/rhythm Gastrointestinal: Soft and benign, Non-distended Musculoskeletal: No clubbing, No contractures Integumentary: No rashes, No cyanosis Neurological: Normal speech Laboratory Data (last 24 hrs) 10/29/22 10/29/22 10/29/22 10:15 10:15 10:15 WBC 11.20 H Hgb 13.0 Hct 37.6 Plt Count 178 PT 14.1 H INR 1.28 APTT 32.3 Sodium 139 Potassium 3.1 L BUN 29 H Creatinine 1.12 H Glucose 127 H Total Bilirubin 1.0 AST 32 ALT 18 Alkaline Phosphatase 89 Imagings Data: EXAM DESCRIPTION: Yaniv Single View10/29/2022 11:31 am CLINICAL HISTORY: Fever COMPARISON: 2021 FINDINGS: Minimal right basilar atelectasis The remainder of the lungs appear clear of acute infiltrate. Small left pleural effusion. Heart is borderline enlarged. Aorta is tortuous EXAM DESCRIPTION: CT - Abdomen Pelvis W Contrast - 10/29/2022 11:28 am CLINICAL HISTORY: Abdominal pain COMPARISON: none. TECHNIQUE: Computed axial tomography of the abdomen pelvis was obtained. 100 cc Isovue-300 was administered intravenously. Oral contrast was not requested which limits evaluation of bowel and appendix All CT scans are performed using dose optimization technique as appropriate and may include automated exposure control or mA/KV adjustment according to patient size. FINDINGS: Small left pleural effusion. Mild tree-in-bud opacities right lower lobe Small to moderate hiatal hernia. The gallbladder is not seen and presumably has been resected. Mild prominence of the common bile duct. Pancreas, adrenals, spleen, kidneys and liver unremarkable Fluid within nondilated large and small bowel. 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 Mild prominence of the common bile duct probably physiologic. This should be be correlated clinically and with appropriate lab values Conclusions/Impression: Stage I RIGO likely due to hypovolemia -No NSAIDs Hypokalemia in the setting of HCTZ -Replete prn Hypophosphatemia -Replete prn Hx Lymphedema Venous insufficiency -Low sodium diet -Keep legs elevated Hypoalbuminemia -Recommend protein supplementation Acute cystitis Enteritis -Continue abx Hospitalist & ID notes reviewed
[2022-11-04] MEDS ORDERED: levoFLOXacin 750 MG TAB PO SCH (09:00)
--- NOTE | 2022-11-08 18:21 | P.DS ---
Discharge Date: 11/03/22 Disposition: ROUTINE DISCHARGE Discharge Condition: GOOD Reason for Admission: N/V/D Consultations: Infectious disease General surgery Nephrology Brief History of Present Illness: Pt is an 82-year-old female with a past medical history of dementia, venous insufficiency, left knee pain, chronic pain presents to the emergency room via EMS from [facility] for nausea vomiting diarrhea. brother is at bedside is primary historian he reports patient was transported to the emergency room for fever started last night. Per ER note patient was nausea vomiting diarrhea with a fever of 100.3 per EMS. No reported cough, shortness of breath, abdominal pain, chest pain. Edema. HPI limited due to patient confusion/dementia. Plan to admit for - Infectious gastroenteritis and colitis, unspecified severe sepsis without septic shock Hospital Course: Patient has done well during hospitalization. Patient was continued on antibiotic therapy, and patient's clinical condition is doing much better. At this time, patient's clinical status is stable. Patient will continue with antibiotics for 10 more days. We will continue with diet as tolerated. Patient will need physical therapy. At this time, patient is clinically doing well and patient stable for discharge back to [facility]. Vital Signs/Physical Exam: Temp Pulse Resp BP Pulse Ox 97.9 F 76 18 135/65 94 11/03/22 12:00 11/03/22 12:00 11/03/22 12:00 11/03/22 12:00 11/03/22 12:00 General: Alert, In no apparent distress, Oriented x3 Laboratory Data at Discharge: WBC 5.60 thou/uL (4.3-10.9) 11/03/22 06:34 Hgb 12.2 g/dL (12.0-15.0) 11/03/22 06:34 Hct 34.6 % (36.0-45.0) L 11/03/22 06:34 Plt Count 133 thou/uL (152-406) L 11/03/22 06:34 PT 14.1 SECONDS (9.5-12.5) H 10/29/22 10:15 INR 1.28 10/29/22 10:15 APTT 32.3 SECONDS (24.3-36.9) 10/29/22 10:15 Sodium 139 mEq/L (136-145) 11/03/22 06:34 Potassium 3.8 mEq/L (3.5-5.1) 11/03/22 06:34 BUN 12 mg/dL (7-18) 11/03/22 06:34 Creatinine 0.67 mg/dL (0.55-1.02) 11/03/22 06:34 Glucose 79 mg/dL (74-106) 11/03/22 06:34 Uric Acid 4.5 mg/dL (2.6-6.0) 10/30/22 02:53 Phosphorus 2.1 mg/dL (2.5-4.9) L 11/03/22 06:34 Magnesium 1.9 mg/dL (1.6-2.4) 11/03/22 06:34 Total Bilirubin 0.8 mg/dL (0.2-1.0) 11/03/22 06:34 AST 46 U/L (15-37) H 11/03/22 06:34 ALT 26 U/L (13-56) 11/03/22 06:34 Alkaline Phosphatase 66 U/L (45-117) 11/03/22 06:34 Home Medications: Acetaminophen 500 mg PO Q6HP PRN 04/14/21 Mirabegron [Myrbetriq] 50 mg PO DAILY 04/14/21 Clopidogrel Bisulfate [Plavix*] 75 mg PO DAILY 06/09/21 Collagenase [Santyl Ointment*] 1 appl TOP DAILY 06/09/21 hydroCHLOROthiazide [Hydrochlorothiazide*] 12.5 mg PO DAILY 06/09/21 levoFLOXacin [Levaquin*] 750 mg PO DAILY #7 tab 11/03/22 New Medications: levoFLOXacin [Levaquin*] 750 mg PO DAILY #7 tab Physician Discharge Instructions: -DC IV and DC home -Follow-up with PCP in 1 to 2 weeks -Please call Dr. Mejia at [phone] if any questions regarding hospital stay -Please call nursing station at [phone] if any nursing or medication questions -Return to the emergency room if symptoms worsen Diet: Regular Activity: Fall precautions Followup: NONE,NONE [Primary Care Provider] - Time spent managing pt's care (in minutes): 35
== END 2022-11-03 15:58 | disposition home or self-care (01) | DRG 871 ==
LOC: ER 09:10 → ERHOLD 13:27 → 2ND 16:17 → OBSVTOIN 10-30 16:49
PROVIDERS: ADMIT Internal Medicine; ATTEND Hospitalist
DX: A41.9 Sepsis, unspecified organism (principal); J18.9 Pneumonia, unspecified organism; A09 Infectious gastroenteritis and colitis, unspecified; N17.9 Acute kidney failure, unspecified; E87.20 Acidosis, unspecified; N30.00 Acute cystitis without hematuria; I96 Gangrene, not elsewhere classified; Z16.24 Resistance to multiple antibiotics; E44.0 Moderate protein-calorie malnutrition; R65.20 Severe sepsis without septic shock; I72.8 Aneurysm of other specified arteries; I87.2 Venous insufficiency (chronic) (peripheral); E88.09 Other disorders of plasma-protein metabolism, not elsewhere classified; E87.6 Hypokalemia; G89.29 Other chronic pain; M54.9 Dorsalgia, unspecified; M48.061 Spinal stenosis, lumbar region without neurogenic claudication; M47.816 Spondylosis without myelopathy or radiculopathy, lumbar region; K44.9 Diaphragmatic hernia without obstruction or gangrene; F03.A0 Unspecified dementia, mild, without behavioral disturbance, psychotic disturbance, mood disturbance, and anxiety; M85.871 Other specified disorders of bone density and structure, right ankle and foot; E83.39 Other disorders of phosphorus metabolism; B95.4 Other streptococcus as the cause of diseases classified elsewhere; B95.2 Enterococcus as the cause of diseases classified elsewhere; T50.2X5A Adverse effect of carbonic-anhydrase inhibitors, benzothiadiazides and other diuretics, initial encounter; R82.71 Bacteriuria; Z68.26 Body mass index [BMI] 26.0-26.9, adult; Z90.49 Acquired absence of other specified parts of digestive tract; Z79.02 Long term (current) use of antithrombotics/antiplatelets; Z79.899 Other long term (current) drug therapy; Z20.822 Contact with and (suspected) exposure to COVID-19
CPT/HCPCS: 36415; 51702; 71045; 74177; 80048; 80053; 80202; 81001; 83605; 83735; 84100; 84550; 85025; 85610; 85730; 87040; 87077; 87086; 87088; 87186; 87324; 87804; 87811; 93005; 93926; 96365; 96366; 96367; 97110; 97161; 97530; 99285; G0378; J0744; J1644; J2405; J2550; J3475; J7030; J7040; J7050; J7120; Q9967

== ENCOUNTER 2022-11-08 15:53 | Emergency (ER) | payer OTHER ==
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
[2022-11-08] MEDS ORDERED: FAMOTIDINE 20 MG/2 ML VIAL IV ONE (16:15)
[2022-11-08] MEDS ORDERED: METHYLPREDNISOLONE 125 MG INJ ONE (16:15)
[2022-11-08 17:52] LABS: Absolute Lymphocytes (CBC) 0.7 K/uL (0.7-4.9); Hematocrit 38.8 % (36.0-45.0); Lymphocytes % 6.7 % (15.3-44.8); MCV 90.6 fL (80-100); MPV 6.8 fL (7.6-11.3); Platelets 235 thou/uL (152-406); RBC Red Blood Cell Count 4.28 M/uL (3.86-4.86)
[2022-11-08 18:07] LABS: Potassium 3.1 mEq/L (3.5-5.1)
--- NOTE | 2022-11-08 18:38 | ER ---
Nurse's Notes [facility] Name: Jami Woodruff Age: 82 yrs Sex: Female : 1940 Arrival Date: 11/08/2022 Time: 15:53 Bed 6 Private MD: Diagnosis: Acute allergic reaction;Urticaria, unspecified Presentation: 11/08 15:55 Chief complaint: EMS states: were called to [facility] for patient having an allergic cm10 reaction. Pt noted to have rash to abdomen, back bilateral upper thighs and arms. Pt recently started taking two new antibiotics, Levaquin and Cephalexin. Pt complaining of back pain and dry lips. No respiratory distress, respirations even and unlabored. Coronavirus screen: Vaccine status: Patient reports receiving the 2nd dose of the covid vaccine. Client denies travel out of the [place] in the last 14 days. Ebola Screen: Patient denies travel to an Ebola-affected area in the 21 days before illness onset. No symptoms or risks identified at this time. Initial Sepsis Screen: Does the patient meet any 2 criteria? Yes Does the patient have a suspected source of infection? No. Patient's initial sepsis screen is negative. Risk Assessment: Do you want to hurt yourself or someone else? Patient reports no desire to harm self or others. Onset of symptoms was November 08, 2022. Care prior to arrival: Medication(s) given: Benadryl 37.5mg IV initiated. 20 GA, in the left antecubital area. Transition of care: [facility]. 15:55 Method Of Arrival: EMS: [facility] 15:55 Acuity: MARTIR 3 cm10 Triage Assessment: 15:59 General: Appears in no apparent distress. comfortable, Behavior is calm, cooperative. cm10 Pain: Complains of pain in back. Neuro: No deficits noted. Level of Consciousness is awake, alert, obeys commands, Oriented to person, place, time, situation. Respiratory: No deficits noted. Airway is patent Respiratory effort is even, unlabored, Respiratory pattern is regular, symmetrical. Derm: Rash noted that is red. Historical: - Allergies: 15:58 No Known Allergies; cm10 - PMHx: 15:58 Dementia; left knee pain; Memory problems; venous insufficiency; cm10 - PSHx: 15:58 Appendectomy; Cholecystectomy; cm10 - Immunization history:: Adult Immunizations not immunized. - Social history:: Smoking status: unknown. - Family history:: not pertinent. - Hospitalizations: : The patient was recently seen at [facility]. Screenin:00 [facility] ED Fall Risk Assessment (Adult) History of falling in the last 3 months, cm10 including since admission No falls in past 3 months (0 pts) Confusion or Disorientation No (0 pts) Intoxicated or Sedated No (0 pts) Impaired Gait Yes (1 pt) Mobility Assist Device Used Yes (1 pt) Altered Elimination Yes (1 pt) Score/Fall Risk Level 3 or more points = High Risk Oriented to surroundings, Maintained a safe environment, Hourly rounding (assess needs \T\ fall precautionary measures) done. Abuse screen: Denies threats or abuse. Denies injuries from another. Abuse screen: Denies threats or abuse. Nutritional screening: No deficits noted. Tuberculosis screening: No symptoms or risk factors identified. Assessment: 16:28 Reassessment: Attempted to call inside lab for blood draw. No answer. mb9 16:29 Reassessment: 2 attempts for lab draw with no success. Dr. Prasad made aware. lab called cm10 with no answer. 17:26 Reassessment: Lab paged again for blood draw. cm10 17:47 Reassessment: Patient and/or family updated on plan of care and expected duration. Pain cm10 level reassessed. Patient is alert, oriented x 3, equal unlabored respirations, skin warm/dry/pink. Patient states symptoms have not improved. 18:49 Reassessment: Patient and/or family updated on plan of care and expected duration. Pain cm10 level reassessed. Patient is alert, oriented x 3, equal unlabored respirations, skin warm/dry/pink. Patient states feeling better. Patient states symptoms have improved. 20:21 Reassessment: EMS AT B/S FOR TRANSPORT. bp Vital Signs: 15:55 BP 125 / 49; Pulse 84; Resp 16; Temp 97; Pulse Ox 97% ; Weight 77.11 kg; cm10 18:21 BP 124 / 60; Pulse 80; Resp 16; Pulse Ox 98% on R/A; mb9 20:22 BP 108 / 62; Pulse 92; Resp 16; Pulse Ox 96% ; bp ED Course: 15:54 Patient arrived in ED. mb9 15:57 Cortez, Dana, ACCOUNTING ASSOCIATE-C is [facility] kb 15:57 Collin Prasad MD is Attending Physician. kb 15:58 Triage completed. cm10 15:59 Arm band placed on Patient placed in an exam room, on a stretcher, on pulse oximetry. cm10 16:00 Patient has correct armband on for positive identification. Placed in gown. Bed in low cm10 position. Call light in reach. Side rails up X2. 16:01 Maintain EMS IV. Dressing intact. Site clean \T\ dry. Gauge \T\ site: 20G LAC. cm 10 16:28 Missed attempt(s): 22 gauge in right hand. Bleeding controlled, band aid applied, cm10 catheter tip intact. 19:01 Report given to Lilliana at [facility]. cm10 19:08 Avila Nieves, RN is Primary Nurse. bp 20:22 No provider procedures requiring assistance completed. IV discontinued, intact, bp bleeding controlled, No redness/swelling at site. Pressure dressing applied. Administered Medications: 16:14 Drug: MethylPrednisoLONE IVP 125 mg Route: IVP; Site: left antecubital; cm10 18:49 Follow up: Response: No adverse reaction cm10 16:14 Drug: Famotidine IVP 20 mg Route: IVP; Site: left antecubital; cm10 18:49 Follow up: Response: No adverse reaction cm10 19:01 Drug: hydrOXYzine PO 50 mg Route: PO; mb9 20:22 Follow up: Response: No adverse reaction bp Medication: 16:00 VIS not applicable for this client. cm10 Outcome: 18:38 Discharge ordered by . rn 20:21 Discharged to detention. Report called to [facility] bp 20:21 Condition: stable 20:21 Discharge instructions given to detention, Instructed on discharge instructions, follow up and referral plans. medication usage, Demonstrated understanding of instructions, follow-up care, medications, Prescriptions given X 3. 20:22 Patient left the ED. bp Signatures: Dana Toro FNP-C ACCOUNTING ASSOCIATE-Ckb Collin Prasad MD MD rn Peltier, Brian, RN RN bp Skyla Parks RN RN mb9 Michelle Catalan RN RN cm10
--- NOTE | 2022-11-08 18:38 | EDPHYS ---
Physician Documentation [facility] Name: Jami Woodruff Age: 82 yrs Sex: Female : 1940 Arrival Date: 11/08/2022 Time: 15:53 Bed 6 Private MD: ED Physician Collin Prasad HPI: 11/08 16:16 This 82 yrs old Female presents to ER via EMS with complaints of Rash. rn 16:16 The patient presents with itching, rash. Onset: The symptoms/episode began/occurred rn yesterday. Possible causes: antibiotics. At home the patient or guardian has treated the symptoms with nothing. Severity of symptoms: At their worst the symptoms were moderate in the emergency department the symptoms are unchanged. The patient has not experienced similar symptoms in the past. EMS reports sent here for rash and swollen lips. Lip swelling began yesterday, broke out in a rash to the upper torso and lower extremities today. Rash itches. Patient denies any shortness of breath or tongue swelling or trouble swallowing. No vomiting. No abdominal pain. Recently admitted for infectious colitis/enteritis and sent home with Levaquin and a cephalosporin per EMS report.. Historical: - Allergies: 15:58 No Known Allergies; cm10 - PMHx: 15:58 Dementia; left knee pain; Memory problems; venous insufficiency; cm10 - PSHx: 15:58 Appendectomy; Cholecystectomy; cm10 - Immunization history:: Adult Immunizations not immunized. - Social history:: Smoking status: unknown. - Family history:: not pertinent. - Hospitalizations: : The patient was recently seen at [facility]. ROS: 16:16 Constitutional: Negative for fever, chills, and weight loss, Eyes: Negative for injury, rn pain, redness, and discharge, Cardiovascular: Negative for chest pain, palpitations, and edema, Respiratory: Negative for shortness of breath, cough, wheezing, and pleuritic chest pain, Abdomen/GI: Negative for abdominal pain, nausea, vomiting, diarrhea, and constipation, Back: Negative for injury and pain, MS/Extremity: Negative for injury and deformity, Skin: Positive for itchy rash Neuro: Negative for headache, weakness, numbness, tingling, and seizure. Exam: 16:16 Constitutional: This is a well developed, well nourished patient who is awake, alert, rn and in no acute distress. Head/Face: Normocephalic, atraumatic. ENT: Dry mucous membranes with cracked lips, no swelling noted, no stridor Cardiovascular: Regular rate and rhythm. No pulse deficits. Respiratory: No increased work of breathing, no retractions or nasal flaring. Abdomen/GI: Soft, non-tender Skin: Warm, dry, urticarial rash most prominent on the anterior and posterior torso extends to proximal upper and lower extremities. No petechiae. No bulla. No fluctuance. Multiple excoriations present. MS/ Extremity: Pulses equal, no cyanosis. Neurovascular intact. Full, normal range of motion. Equal circumference. Vital Signs: 15:55 BP 125 / 49; Pulse 84; Resp 16; Temp 97; Pulse Ox 97% ; Weight 77.11 kg; cm10 18:21 BP 124 / 60; Pulse 80; Resp 16; Pulse Ox 98% on R/A; mb9 20:22 BP 108 / 62; Pulse 92; Resp 16; Pulse Ox 96% ; bp MDM: 15:57 Patient medically screened. kb 18:37 Differential diagnosis: urticaria, Acute allergic reaction. Data reviewed: vital signs, rn nurses notes, lab test result(s), and as a result, I will discharge patient. External Records Reviewed: Inpatient record: Inpatient record reviewed. Seems like only new antibiotic was Levaquin. Patient not sure that she has had Levaquin before. Seems like they were treating an atypical pneumonia. We will switch to Zithromax. Allergic reaction improved rash has improved will DC home with steroids and Zithromax.. Counseling: I had a detailed discussion with the patient and/or guardian regarding the historical points, exam findings, and any diagnostic results supporting the discharge/admit diagnosis, lab results, the need for outpatient follow up, to return to the emergency department if symptoms worsen or persist or if there are any questions or concerns that arise at home. Special discussion: I discussed with the patient/guardian in detail that at this point there is no indication for admission to the hospital. It is understood, however, that if the symptoms persist or worsen the patient needs to return immediately for re-evaluation. 11/08 16: Order name: CBC with Diff; Complete Time: 18:06 rn 11/08 16: Order name: Basic Metabolic Panel; Complete Time: 18:08 rn 11/08 16:01 Order name: IV Start; Complete Time: 16:01 rn Administered Medications: 16:14 Drug: MethylPrednisoLONE IVP 125 mg Route: IVP; Site: left antecubital; cm10 18:49 Follow up: Response: No adverse reaction cm10 16:14 Drug: Famotidine IVP 20 mg Route: IVP; Site: left antecubital; cm10 18:49 Follow up: Response: No adverse reaction cm10 19:01 Drug: hydrOXYzine PO 50 mg Route: PO; mb9 20:22 Follow up: Response: No adverse reaction bp Disposition Summary: 11/08/22 18:38 Discharge Ordered Location: Home rn Problem: new rn Symptoms: have improved rn Condition: Stable rn Diagnosis - Acute allergic reaction rn - Urticaria, unspecified rn Followup: rn - With: Private Physician - When: As needed - Reason: Recheck today's complaints, Re-evaluation by your physician Discharge Instructions: - Discharge Summary Sheet rn - Hives rn - Rash, Adult rn Forms: - Medication Reconciliation Form rn - Thank You Letter rn - Antibiotic credit intern - Prescription Opioid Use rn - Patient Portal Instructions rn - Leadership Thank You Letter rn - SBAR form rv Prescriptions: - Hydroxyzine HCl 50 mg Oral Tablet - take 1 tablet by ORAL route every 8 hours As needed; 15 tablet; Refills: 0, rn Product Selection Permitted - Prednisone 20 mg Oral Tablet - take 3 tablets by ORAL route once daily for 5 days; 15 tablet; Refills: 0, rn Product Selection Permitted - Zithromax Z-Caden 250 mg Oral Tablet - take 1 tablet by ORAL route as directed for 5 days Day 1 - take two (2) tablets rn one time. Day 2, 3, 4 , 5 take one (1) tablet once daily.; 6 tablet; Refills: 0, Product Selection Permitted Signatures: Dispatcher [employer] Dana Gilliam, OSCAR PRAKASHP-Collin Wynne MD MD rn Breneman, Skyla Rico RN RN mb9 Michelle Catalan RN RN cm10 Avila Nieves RN bp
[2022-11-08] MEDS ORDERED: hydrOXYzine HCL 25 MG TAB ONE (19:11)
[2022-11-08 20:28] VITALS: TEMP 97
[2022-11-08 20:31] VITALS: BP 108/62; O2SAT 96
== END 2022-11-08 20:22 | disposition home or self-care (01) ==
LOC: ER 15:53
DX: L50.9 Urticaria, unspecified (principal); T78.40XA Allergy, unspecified, initial encounter; F03.90 Unspecified dementia, unspecified severity, without behavioral disturbance, psychotic disturbance, mood disturbance, and anxiety; I87.2 Venous insufficiency (chronic) (peripheral); Z90.49 Acquired absence of other specified parts of digestive tract
CPT/HCPCS: 85025; 80048; 36415; 96375; 96374; 99284; J2930

== ENCOUNTER 2022-11-23 14:19 | Inpatient (IN) | payer OTHER ==
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
[2022-11-23 15:13] LABS: Absolute Lymphocytes (CBC) 1.1 K/uL (0.7-4.9); Hematocrit 38.3 % (36.0-45.0); Lymphocytes % 11.9 % (15.3-44.8); MCV 90.2 fL (80-100); Platelets 176 thou/uL (152-406); RBC Red Blood Cell Count 4.25 M/uL (3.86-4.86)
[2022-11-23 15:16] LABS: Protime INR 1.21
[2022-11-23 15:30] LABS: Albumin 2.4 g/dL (3.4-5.0); Potassium 3.1 mEq/L (3.5-5.1); Protein, Total 6.4 g/dL (6.4-8.2)
--- NOTE | 2022-11-23 16:05 | ER ---
Nurse's Notes [facility] Name: Jami Woodruff Age: 82 yrs Sex: Female : 1940 Arrival Date: 11/23/2022 Time: 14:19 Bed 4 Private MD: Diagnosis: Cellulitis of right lower limb;Peripheral vascular disease, unspecified Presentation: 11/23 14:30 Chief complaint: EMS states: called by sn[facility] for wound on 2nd toe right foot. ko1 Coronavirus screen: At this time, the client does not indicate any symptoms associated with coronavirus-19. Ebola Screen: No symptoms or risks identified at this time. Initial Sepsis Screen: Does the patient meet any 2 criteria? No. Patient's initial sepsis screen is negative. Does the patient have a suspected source of infection? Yes: Skin breakdown/wound. Risk Assessment: Do you want to hurt yourself or someone else? Patient reports no desire to harm self or others. Onset of symptoms is unknown. 14:30 Method Of Arrival: EMS: [facility] ko1 14:30 Acuity: MARTIR 3 ko1 Triage Assessment: 14:42 General: Appears in no apparent distress. Behavior is anxious. Pain: Complains of pain ko1 in right second toe and Right second toenail. Historical: - Allergies: 14:42 No Known Allergies; ko1 - Home Meds: 14:32 buspirone 10 mg oral tablet 1 tab 2 times per day for generalized anxiety disorder ko1 [Active]; citalopram 10 mg tablet 1 tab daily for major depressive disorder [Active]; clopidogrel 75 mg oral tablet 1 tab daily [Active]; acetaminophen 500 mg Oral capsule 1 cap as needed for pain [Active]; donepezil 5 mg oral tablet 1 tab every day at bedtime for mild to moderate Alzheimer's type dementia [Active]; gabapentin 300 mg oral capsule 1 cap every day at bedtime for neuropathic pain [Active]; hydrochlorothiazide 25 mg Oral tablet once for edema [Active]; hydroxyzine HCl 50 mg Oral tablet 1 tab every 8 hours [Active]; mupirocin 2 % topical Ointment Kit daily for minor bacterial skin infections [Active]; Myrbetriq 50 mg oral Tablet, Extended Release 24 hr 1 tab daily for bladder hyperactivity [Active]; tramadol 50 mg Oral tablet 1 tab as needed for pain [Active]; trazodone 50 mg Oral tablet 1 tab every day at bedtime for insomnia associated with depression [Active]; - PMHx: 14:32 Dementia; venous insufficiency; Memory problems; left knee pain; Anxiety; ko1 - PSHx: 14:32 Appendectomy; Cholecystectomy; ko1 - Immunization history:: Adult Immunizations up to date. - Social history:: Smoking status: Patient denies any tobacco usage or history of. - Family history:: not pertinent. - Hospitalizations: : No recent hospitalization is reported. Screenin:43 [facility] ED Fall Risk Assessment (Adult) History of falling in the last 3 months, ko1 including since admission No falls in past 3 months (0 pts) Confusion or Disorientation Yes (5 pts) Intoxicated or Sedated No (0 pts) Impaired Gait No (0 pts) Mobility Assist Device Used No (0 pt) Altered Elimination No (0 pt) Score/Fall Risk Level 0 - 2 = Low Risk Oriented to surroundings, Maintained a safe environment, Educated pt \T\ family on fall prevention, incl call for assistance when getting out of bed, Assessed \T\ reinforced patient's understanding of fall precautions, Provided non-skid footwear, Hourly rounding (assess needs \T\ fall precautionary measures) done, Used ambulatory aids as needed (educated on \T\ assisted with), Used gait belt as appropriate. Abuse screen: Denies threats or abuse. Denies injuries from another. Nutritional screening: No deficits noted. Tuberculosis screening: No symptoms or risk factors identified. Assessment: 14:43 Neuro: Level of Consciousness is awake, alert, confused. Cardiovascular: No deficits ko1 noted. Respiratory: No deficits noted. GI: No deficits noted. : No deficits noted. EENT: No deficits noted. Derm: Wound noted right second toe. Musculoskeletal: No deficits noted. Vital Signs: 14:30 BP 114 / 74; Pulse 94; Resp 18; Temp 98.2; Pulse Ox 97% on R/A; ko1 14:58 BP 114 / 74; Pulse 84; Resp 18; Pulse Ox 98% ; ko1 ED Course: 14:26 Patient arrived in ED. mg5 14:29 Collin Prasad MD is Attending Physician. rn 14:30 Laurie Parikh RN is Primary Nurse. ko1 14:32 Triage completed. ko1 14:42 Arm band placed on left wrist. Patient placed in an exam room, on a stretcher, on ko1 environmental monitoring specialist, on pulse oximetry, Patient notified of wait time. 14:43 Patient has correct armband on for positive identification. Fall risk band placed. Bed ko1 in low position. Call light in reach. Side rails up X2. Provided Education on: na. Client placed on continuous cardiac and pulse oximetry monitoring. NIBP monitoring applied. compliance monitor on. Door closed. Noise minimized. Lights dimmed. Warm blanket given. 15:01 Foot Right 2 View In Process Unspecified. EDMS 15:09 Inserted saline lock: 22 gauge in left upper arm, using aseptic technique. Blood ds4 collected. 16:04 Aydin Baca MD is Hospitalizing Provider. rn 17:32 IV discontinued, by patient. ko1 17:36 Lower Extremity Arterial Bilat US In Process Unspecified. EDMS 17:37 Extremity Venous Uni Ltd US In Process Unspecified. EDMS 18:24 Magnesium Sent. ko1 18:24 Phosphorus Sent. ko1 18:24 Blood Culture Adult (2) Sent. ko1 18:53 Inserted saline lock: 24 gauge in right upper arm, using aseptic technique. ds4 21:02 No provider procedures requiring assistance completed. Inserted Patient admitted, IV cm10 remains in place. Administered Medications: 18:24 Drug: vancoMYCIN IVPB 1 grams IVPB once over 2 hrs Route: IVPB; Infused Over: 2 hrs; ko1 Site: left antecubital; Medication: 21:03 VIS not applicable for this client. [email or web address] Outcome: 16:05 Decision to Hospitalize by Provider. rn 21:02 Admitted to Tele accompanied by nurse, via stretcher, room 430, Report called to omar Crawford RN 21:02 Condition: good 21:02 Instructed on the need for admit, 22:21 Patient left the ED. omar Signatures: Dispatcher [employer] EDMS Collin Prasad MD MD rn Swanson, Donovan ds4 Laurie Parikh RN RN ko1 Martinez, Clarissa, RN RN cm10 Gardner, Madison mg5
--- NOTE | 2022-11-23 16:06 | EDPHYS ---
Physician Documentation [facility] Name: Jami Woodruff Age: 82 yrs Sex: Female : 1940 Arrival Date: 11/23/2022 Time: 14:19 Bed 4 Private MD: ED Physician Collin Prasad HPI: 11/23 14:43 This 82 yrs old Female presents to ER via EMS with complaints of swelling and pain rn right foot. 14:43 The patient presents with cellulitis of the right foot. Onset: The symptoms/episode rn began/occurred at an unknown time. Possible cause(s): animal bite. Modifying factors: the symptoms are alleviated by nothing, the symptoms are aggravated by touching. Severity of symptoms: At their worst the symptoms were moderate, in the emergency department the symptoms are unchanged. The patient has not experienced similar symptoms in the past. The patient has not recently seen a physician. Historical: - Allergies: 14:42 No Known Allergies; ko1 - Home Meds: 14:32 buspirone 10 mg oral tablet 1 tab 2 times per day for generalized anxiety disorder ko1 [Active]; citalopram 10 mg tablet 1 tab daily for major depressive disorder [Active]; clopidogrel 75 mg oral tablet 1 tab daily [Active]; acetaminophen 500 mg Oral capsule 1 cap as needed for pain [Active]; donepezil 5 mg oral tablet 1 tab every day at bedtime for mild to moderate Alzheimer's type dementia [Active]; gabapentin 300 mg oral capsule 1 cap every day at bedtime for neuropathic pain [Active]; hydrochlorothiazide 25 mg Oral tablet once for edema [Active]; hydroxyzine HCl 50 mg Oral tablet 1 tab every 8 hours [Active]; mupirocin 2 % topical Ointment Kit daily for minor bacterial skin infections [Active]; Myrbetriq 50 mg oral Tablet, Extended Release 24 hr 1 tab daily for bladder hyperactivity [Active]; tramadol 50 mg Oral tablet 1 tab as needed for pain [Active]; trazodone 50 mg Oral tablet 1 tab every day at bedtime for insomnia associated with depression [Active]; - PMHx: 14:32 Dementia; venous insufficiency; Memory problems; left knee pain; Anxiety; ko1 - PSHx: 14:32 Appendectomy; Cholecystectomy; ko1 - Immunization history:: Adult Immunizations up to date. - Social history:: Smoking status: Patient denies any tobacco usage or history of. - Family history:: not pertinent. - Hospitalizations: : No recent hospitalization is reported. ROS: 14:43 Constitutional: Negative for fever, chills, and weight loss, Cardiovascular: Negative rn for chest pain, palpitations, and edema, Respiratory: Negative for shortness of breath, cough, wheezing, and pleuritic chest pain, Abdomen/GI: Negative for abdominal pain, nausea, vomiting, diarrhea, and constipation, MS/Extremity: + pain to right foot Skin: + redness and pain to right foot Neuro: Negative for headache, weakness, numbness, tingling, and seizure, Exam: 14:43 Constitutional: This is a well developed, well nourished patient who is awake, alert, rn and in no acute distress. Cardiovascular: Regular rate and rhythm. No pulse deficits. Respiratory: No increased work of breathing, no retractions or nasal flaring. Abdomen/GI: Soft, non-tender Skin: No streaking proximal or beyond right foot MS/ Extremity: No cyanosis but has dry gangrene to multiple toes in the right foot. Erythema and warmth to the dorsum of the right foot with mild swelling. Moderate tenderness with movement and palpation to the right second toe. No crepitus. 16:14 ECG was reviewed by the Attending Physician. rn Vital Signs: 14:30 BP 114 / 74; Pulse 94; Resp 18; Temp 98.2; Pulse Ox 97% on R/A; ko1 14:58 BP 114 / 74; Pulse 84; Resp 18; Pulse Ox 98% ; ko1 MDM: 14:29 Patient medically screened. rn 16:08 Differential diagnosis: cellulitis, Cellulitis, osteomyelitis, peripheral vascular rn disease, peripheral arterial disease. Data reviewed: vital signs, nurses notes, lab test result(s), radiologic studies, plain films, and as a result, I will admit patient. Consideration of Admission/Observation Patient was admitted/placed on observation. Escalation of care including admission/observation considered. Management of patient was discussed with the following: Hospitalist: . Counseling: I had a detailed discussion with the patient and/or guardian regarding the historical points, exam findings, and any diagnostic results supporting the discharge/admit diagnosis, lab results, radiology results, the need for further work-up and treatment in the hospital. 11/23 14:30 Order name: Blood Culture Adult (2) rn 11/23 14:30 Order name: CBC with Diff; Complete Time: 15:58 rn 11/23 14:30 Order name: CMP; Complete Time: 15:58 rn 11/23 14:30 Order name: Lactate w/ 2H reflex if indic.; Complete Time: 15:58 rn 11/23 14:30 Order name: Protime (+inr); Complete Time: 15:58 rn 11/23 14:30 Order name: Ptt, Activated; Complete Time: 15:58 rn 11/23 17:37 Order name: Magnesium EDDC 11/23 17:37 Order name: Phosphorus EDDC 11/23 17:37 Order name: Urinalysis w/ reflexes [facility]DC 11/23 17:37 Order name: Basic Metabolic Panel [facility] 11/23 17:37 Order name: Basic Metabolic Panel [facility] 11/23 17:37 Order name: CBC with Automated Diff [facility] 11/23 17:37 Order name: CBC with Automated Diff [facility] 11/23 14:30 Order name: Lower Extremity Arterial Bilat [facility] 11/23 14:30 Order name: Extremity Venous Uni Ltd [facility] 11/23 15:01 Order name: Foot Right 2 View; Complete Time: 17:08 [facility] 11/23 17:35 Order name: Foot Right Wo Cont [facility] 11/23 14:30 Order name: EKG; Complete Time: 14:30 11/23 17:37 Order name: Heart Healthy [facility] 11/23 14:30 Order name: Accucheck; Complete Time: 14:48 rn 11/23 14:30 Order name: Cardiac monitoring; Complete Time: 14:48 rn 11/23 14:30 Order name: EKG - Nurse/Tech; Complete Time: 14:48 rn 11/23 14:30 Order name: IV Saline Lock - Large Bore; Complete Time: 15:01 rn 11/23 14:30 Order name: Labs collected and sent; Complete Time: 15:01 rn 11/23 14:30 Order name: O2 Per Protocol; Complete Time: 14:39 rn 11/23 14:30 Order name: O2 Sat Monitoring; Complete Time: 14:39 rn 11/23 14:30 Order name: Vital Signs; Complete Time: 14:39 rn EC:14 Rate is 90 beats/min. Rhythm is regular. QRS [place] is Normal. [place] interval is normal. QRS rn interval is normal. QT interval is normal. No Q waves. T waves are Normal. No ST changes noted. Clinical impression: NSR w/ Non-specific ST/T Changes. Interpreted by me. Reviewed by me. Administered Medications: 18:24 Drug: vancoMYCIN IVPB 1 grams IVPB once over 2 hrs Route: IVPB; Infused Over: 2 hrs; ko1 Site: left antecubital; Disposition Summary: 11/23/22 16:05 Hospitalization Ordered Notes: Hospitalization Status: Inpatient Admission rn Provider: Aydin Baca rn Location: Telemetry/MedSurg (Inpatient) rn Condition: Stable rn Problem: new rn Symptoms: are unchanged rn Bed/Room Type: Standard rn Room Assignment: 430(11/23/22 20:36) mw Diagnosis - Cellulitis of right lower limb rn - Peripheral vascular disease, unspecified rn Forms: - Medication Reconciliation Form rn - SBAR form rn - Leadership Thank You Letter rn Signatures: Dispatcher [employer] EDDC Minnie Larson RN RN mw Nieto, Roman, MD MD rn Oliver, Kathy, RN RN ko1 Corrections: (The following items were deleted from the chart) 15:01 14:30 Foot Right 3 View+RAD.RAD.BRZ ordered. EDDC EDDC 20:36 16:05 rn thanh
--- NOTE | 2022-11-23 16:50 | RAD REPORT ---
EXAM DESCRIPTION: RAD - Foot Right 2 View - 11/23/2022 3:01 pm CLINICAL HISTORY: cellulitis, eval for osteo COMPARISON: Foot Right 3 View dated 10/30/2022; Foot Right 3 View dated 06/03/2021 TECHNIQUE: Right foot, 3 views. FINDINGS: Diffuse osteopenia which limits evaluation. No fracture, dislocation or periosteal reactio n. Partially visualized distal lower leg fixation hardware. No air or foreign body in the soft tissues. Soft tissue swelling about the forefoot and midfoot. IMPRESSION: No acute osseous abnormality. Soft tissue swelling about the forefoot and midfoot. Diffu se osteopenia limits evaluation.
[2022-11-23] MEDS ORDERED: ACETAMINOPHEN 325 MG TABLET PO PRN (17:32)
[2022-11-23] MEDS ORDERED: HYDROCODONE/APAP 10/325 TAB PO PRN (17:32)
[2022-11-23] MEDS ORDERED: VANCOMYCIN 1 GM/VIAL ONE (17:33)
[2022-11-23] MEDS ORDERED: NA CHLORIDE 0.9% 250 ML ONE (17:33)
[2022-11-23] MEDS ORDERED: ONDANSETRON 4 MG/2 ML VIAL IV PRN (17:35)
--- NOTE | 2022-11-23 17:37 | P.HP ---
Certification for Inpatient Patient admitted to: Inpatient With expected LOS: >2 Midnights Patient will require the following post-hospital care: None Practitioner: I am a practitioner with admitting privileges, knowledge of patient current condition, hospital course, and medical plan of care. Services: Services provided to patient in accordance with Admission requirements found in Title 42 Section 412.3 of the Code of Federal Regulations Patient History Date of Service: 11/23/22 Reason for admission: RLE swelling\redness\pain History of Present Illness: Patient is an 82-year-old female with past medical history significant for depression, Alzheimer's dementia, peripheral neuropathy, PVD, OAB who presents with complaint of right foot redness\swelling and pain. Patient noted with necrotic tissue on the right third and fourth toes. Patient rated pain as 10/10 in severity and described pain as throbbing in quality. Patient denies any other signs or symptoms. Symptoms are aggravated by weightbearing and relieved by nothing. Patient decided to present to the hospital for medical evaluation. Allergies No Known Allergies Allergy (Verified 06/04/21 03:58) Home Medications: Acetaminophen 500 mg PO Q6HP PRN 04/14/21 Mirabegron [Myrbetriq] 50 mg PO DAILY 04/14/21 Clopidogrel Bisulfate [Plavix*] 75 mg PO DAILY 06/09/21 Collagenase [Santyl Ointment*] 1 appl TOP DAILY 06/09/21 hydroCHLOROthiazide [Hydrochlorothiazide*] 12.5 mg PO DAILY 06/09/21 levoFLOXacin [Levaquin*] 750 mg PO DAILY #7 tab 11/03/22 - Past Medical/Surgical History Diabetic: No -: Overactive Bladder -: Lymphedema -: Depression -: Venous Insufficiency -: Appendectomy -: Cholecystectomy Psychosocial/ Personal History: Patient lives at [facility]. - Family History Sister -: Diabetes - Social History Smoking Status: Never smoker Alcohol use: No CD- Drugs: No Caffeine use: Yes Place of Residence: Home Review of Systems General: Unremarkable Eyes: Unremarkable ENT: Unremarkable Respiratory: Unremarkable Cardiovascular: Unremarkable Gastrointestinal: Unremarkable Genitourinary: Unremarkable Musculoskeletal: Other (R foot swelling\pain ) Integumentary: Other (RLE redness ) Neurological: Unremarkable Lymphatics: Unremarkable Physical Examination - Physical Exam General: Alert, In no apparent distress, Oriented x3, Cooperative HEENT: Atraumatic, PERRLA, Mucous membr. moist/pink, EOMI, Sclerae nonicteric Neck: Supple, 2+ carotid pulse no bruit, No LAD, Without JVD or thyroid abnormality Respiratory: Clear to auscultation bilaterally, Normal air movement Cardiovascular: Regular rate/rhythm, Normal S1 S2, Edema Capillary refill: <2 Seconds Gastrointestinal: Normal bowel sounds, No tenderness Musculoskeletal: No tenderness, Swelling (R foot ) Integumentary: No rashes, Erythema Neurological: Normal speech, Normal tone, Normal affect Lymphatics: No axilla or inguinal lymphadenopathy - Studies Laboratory Data (last 24 hrs) 11/23/22 11/23/22 11/23/22 15:00 15:00 15:00 WBC 9.30 Hgb 13.0 Hct 38.3 Plt Count 176 PT 13.3 H INR 1.21 APTT 29.4 Sodium 135 L Potassium 3.1 L BUN 19 H Creatinine 0.88 Glucose 103 Total Bilirubin 1.0 AST 37 ALT 30 Alkaline Phosphatase 107 Assessment and Plan - Plan --Right foot cellulitis. Blood cultures pending. Continue antibiotics. MRI foot to rule out osteomyelitis. Infectious disease MD consulted. We will await further recommendations. -- Acute pain. We will manage pain with current medication regimen. -- Alzheimer's dementia. Stable. Continue home medications. --Depression. Continue home medications. --Peripheral neuropathy. Continue home medication. -- Overactive bladder. Continue home medication. -- History of PVD. Continue aspirin and Plavix . -- Hypokalemia. Replete as needed. -- Hypophosphatemia. Replete as needed. -- DVT prophylaxis with Lovenox subQ. Discharge Plan: Assisted Plan to discharge in: Greater than 2 days - Advance Directives Does patient have a Living Will: No Does patient have a Durable POA for Healthcare: No - Code Status/Comfort Care Code Status Assessed: Yes Physician Review: Patient Assessed, Agree with Above Assessment and Plan Critical Care: No
[2022-11-23] MEDS: VANCOMYCIN 1 GM in NA CHLORIDE 0.9% 250 ML IVPB SCH ×2 (18:00→21:00)
--- NOTE | 2022-11-23 18:06 | RAD REPORT ---
EXAM DESCRIPTION: US - Lower Extremity Arterial Bilat - 11/23/2022 5:36 pm CLINICAL HISTORY: Pain;Swelling COMPARISON: Lower Extremity Artery Uni Ltd dated 10/30/2022 TECHNIQUE: Bilateral lower extremity arterial Doppler examination was performed with noy lazcano FINDINGS: Biphasic waveforms seen along the right common femoral artery. Monophasic waveforms seen a long the remainder of the right lower extremity to the level of the dorsalis pedis artery. Triphasic waveforms are seen along the proximal left extremity arterial system to the level of the po pliteal artery. Left posterior tibial and dorsalis pedis arteries show monophasic flow. IMPRESSION: Moderate right and mild left peripheral vascular disease.
--- NOTE | 2022-11-23 18:06 | RAD REPORT ---
EXAM DESCRIPTION: US - Extremity Venous Uni Ltd - 11/23/2022 5:36 pm CLINICAL HISTORY: Pain, swelling COMPARISON: None. TECHNIQUE: Real-time sonographic evaluation of the right lower extremity deep venous system was perf ormed. FINDINGS: Normal compressibility, flow augmentation, phasic flow and spontaneous flow is identified in the right lower extremity deep venous system. No intraluminal filling defects seen. IMPRESSION: No DVT in the right lower extremity.
[2022-11-23 18:52] LABS: Magnesium 1.9 mg/dL (1.6-2.4); Phosphorus 2.1 mg/dL (2.5-4.9)
[2022-11-23] MEDS ORDERED: POTASSIUM CL SA 10 MEQ TAB PO ONE ×2 (19:25→20:00)
[2022-11-23] MEDS ORDERED: VANCOMYCIN 1 GM in NA CHLORIDE 0.9% 250 ML IVPB ONE (20:00)
[2022-11-23] MEDS ORDERED: NA CHLORIDE 0.9% 100 ML ONE (20:00)
[2022-11-23] MEDS ORDERED: POTASS/SODIUM PHOSPHATE 1 PKT POWD.PACK PO ONE (20:00)
[2022-11-23] MEDS ORDERED: CEFEPIME 2 GM VIAL ONE (20:00)
[2022-11-23] MEDS: CEFEPIME 2 GM in NA CHLORIDE 0.9% 100 ML IV SCH (20:01)
[2022-11-23] MEDS: ENOXAPARIN 40 MG/0.4 ML SQ SCH (20:14)
[2022-11-23] MEDS ORDERED: ENOXAPARIN 40 MG/0.4 ML SQ ONE (20:17)
[2022-11-23] MEDS ORDERED: VANCOMYCIN 500 MG in NA CHLORIDE 0.9% 100 ML IVPB ONE (22:45)
[2022-11-23 23:19] VITALS: BMI 26.4
[2022-11-24] MEDS: CEFEPIME 2 GM in NA CHLORIDE 0.9% 100 ML IV SCH ×3 (00:04→16:58)
[2022-11-24 07:40] LABS: Magnesium 1.8 mg/dL (1.6-2.4); Phosphorus 1.8 mg/dL (2.5-4.9); Potassium 3.4 mEq/L (3.5-5.1)
[2022-11-24] MEDS: POTASS/SODIUM PHOSPHATE 1 PKT POWD.PACK PO SCH ×3 (08:25→09:31)
[2022-11-24] MEDS: ENOXAPARIN 40 MG/0.4 ML SQ SCH (08:26)
[2022-11-24] MEDS: ASPIRIN 81 MG CHEWABLE TABLET PO SCH (08:27)
[2022-11-24] MEDS ORDERED: POTASSIUM 25 MEQ EFFERV TAB PO ONE (09:00)
[2022-11-24] MEDS ORDERED: INFLUENZA VACCINE (for 6+ mo) 0.5 ML DOSE IMVAC ONE (09:00)
--- NOTE | 2022-11-24 09:11 | P.CNS ---
Date of Consult: 11/24/22 Reason for Consult: cellulitis right lower extremity Chief Complaint: RLE swelling\\redness\\pain History of Present Illness: Patient is an 82-year-old female with a past medical history of dementia, depression, venous insufficiency, overactive bladder who presented to the ED with complaints of right foot erythema, edema and pain. Patient admitted for further workup and management cellulitis of right foot, concern for osteomyelitis. Blood cultures obtained. Patient was started on Cefepime and Vancomycin. Infectious disease was consulted. Allergies No Known Allergies Allergy (Verified 06/04/21 03:58) Home medications list reviewed: Yes Home Medications: Acetaminophen 500 mg PO Q6HP PRN 04/14/21 Mirabegron [Myrbetriq] 50 mg PO DAILY 04/14/21 Clopidogrel Bisulfate [Plavix*] 75 mg PO DAILY 06/09/21 Collagenase [Santyl Ointment*] 1 appl TOP DAILY 06/09/21 hydroCHLOROthiazide [Hydrochlorothiazide*] 12.5 mg PO DAILY 06/09/21 levoFLOXacin [Levaquin*] 750 mg PO DAILY #7 tab 11/03/22 - Past Medical/Surgical History Diabetic: No -: Overactive Bladder -: Lymphedema -: Depression -: Venous Insufficiency -: Appendectomy -: Cholecystectomy Psychosocial/ Personal History: Patient lives at [facility]. - Family History Sister Medical History: Diabetes - Social History Smoking Status: Unknown if ever smoked Alcohol use: No CD- Drugs: No Caffeine use: Yes Place of Residence: Home Review of Systems 10-point ROS is otherwise unremarkable Musculoskeletal: Foot Pain (right foot) Integumentary: As per HPI Physical Examination Temp Pulse Resp BP Pulse Ox 97.9 F 91 H 16 124/61 124 11/24/22 04:00 11/24/22 04:00 11/24/22 04:00 11/24/22 04:00 11/24/22 04:00 General: Alert, In no apparent distress, Oriented x3 HEENT: Atraumatic, Normocephalic Neck: Supple, JVD not distended Respiratory: Clear to auscultation bilaterally, Normal air movement (on room air) Cardiovascular: No edema, Normal pulses Gastrointestinal: Normal bowel sounds, Soft and benign, No tenderness Musculoskeletal: Other (moves all extremities) Integumentary: Tenderness/swelling (right foot), Erythema (right foot), Arterial ulcer (right 2nd toe), Other Neurological: Normal speech, Normal tone, Normal affect Laboratory Data (last 24 hrs) 11/23/22 11/23/22 11/23/22 15:00 15:00 15:00 WBC 9.30 Hgb 13.0 Hct 38.3 Plt Count 176 PT 13.3 H INR 1.21 APTT 29.4 Sodium 135 L Potassium 3.1 L BUN 19 H Creatinine 0.88 Glucose 103 Total Bilirubin 1.0 AST 37 ALT 30 Alkaline Phosphatase 107 Microbiology data -Reviewed Imagings Data: -Reviewed Conclusions/Impression: Problem List Cellulitis of Right Lower Extremity Peripheral Vascular Disease Overactive Bladder Dementia Cellulitis of Right Foot - Arterial vs pressure ulcer of right second toe - Arterial ultrasound: " Moderate right and mild left peripheral vascular disease." - Venous ultrasound without evidence of DVT in the right lower extremity - XR right foot 11/23: " No acute osseous abnormality. Soft tissue swelling about the forefoot and midfoot. Diffuse osteopenia limits evaluation. " - Currently on Cefepime and Vancomycin (started 11/23) - Concern for ostemyelitis right foot. MRI pending. - Wound culture pending - Blood cultures 11/23: Pending - No leukocytosis. Afebrile. Recommendations - Right foot cellulitis: Continue Cefepime and Vancomycin for now. - MRI right foot ordered; pending. Follow up with results. - Wound culture right toe ordered; pending - Keep right toe wound covered with foam dressing Case discussed with Louis Ho
--- NOTE | 2022-11-24 13:04 | EKG ---
Test Date: 2022-11-23 Test Time: 14:40:38 Cellars Supervisor: SARAI MEASUREMENT RESULTS: Intervals: Rate: 90 NM: 142 QRSD: 76 QT: 384 QTc: 469 [place]: P: -7 NM: 142 QRS: 33 T: 77 INTERPRETIVE STATEMENTS: Sinus rhythm with premature supraventricular complexes Nonspecific ST and T wave abnormality Abnormal ECG Compared to ECG 10/29/2022 09:50:18 Atrial premature complex(es) now present Sinus tachycardia no longer present Prolonged QT interval no longer present ST (T wave) deviation still present Electronically Signed On 11-24-22 13:02:01 CDT by Ras Macias
[2022-11-24] MEDS ORDERED: MORPHINE 2 MG/ML SYR IV ONE (15:56)
--- NOTE | 2022-11-24 19:58 | P.PN ---
Subjective Date of Service: 11/24/22 Chief Complaint: RLE swelling\\redness\\pain No acute events overnight. She reports discomfort in her right foot. She denies any fevers, chills, chest pain, palpitations, or shortness of breath. Plan for MRI today to evaluate for osteomyelitis. Review of Systems 10-point ROS is otherwise unremarkable Integumentary: Rash (right foot discomfort) Physical Examination - Vital Signs Temperature: 98 F Blood Pressure: 124/75 Pulse: 90 Respirations: 16 Pulse Ox (%): 95 - Physical Exam General: Alert, In no apparent distress, Oriented x3 HEENT: Atraumatic, Mucous membr. moist/pink, Sclerae nonicteric Neck: JVD not distended Respiratory: Clear to auscultation bilaterally, Normal air movement Cardiovascular: No edema, Regular rate/rhythm, Normal S1 S2, No gallops, No rubs, No murmurs Gastrointestinal: Normal bowel sounds, Soft and benign, Non-distended, No tenderness, No rebound, No guarding Musculoskeletal: No clubbing Integumentary: Skin breakdown (right 2nd toe), Tenderness/swelling (right 2nd toe), Erythema (right 2nd toe), Warmth (right 2nd toe) Neurological: Normal speech, Normal affect - Studies Microbiology Data (last 24 hrs): 11/23/22 14:45 Blood - Blood Anaerobic Blood Culture - Final 11/23/22 15:00 Blood - Blood Anaerobic Blood Culture - Final Assessment And Plan - Plan # Right Foot Cellulitis - Does not meet sepsis criteria - Radiology: - Right foot x-ray = "no acute osseous abnormality. Soft tissue swelling about the forefoot and midfoot. Diffuse osteopenia limits evaluation." - Right lower extremity Doppler = "no DVT in the right lower extremity." - Infectious Diseases consulted and spoke with ONCOLOGY PATIENT NAVIGATOR Sgarbi - recommendations appreciated - Continue vancomycin + cefepime for now - Plan for MRI right foot today - As needed pain control # Moderate Right and Mild Left Peripheral Artery Disease - Bilateral lower extremity arterial Doppler = "moderate right and mild left peripheral vascular disease." - Continue aspirin + clopidogrel - Started atorvastatin # Alzheimer's Dementia # Depression - Reconcile home medications once verified Aydin Baca M.D.
[2022-11-24] MEDS: VANCOMYCIN 1.5 GM in NA CHLORIDE 0.9% 500 ML IVPB SCH (22:04)
[2022-11-25] MEDS: CEFEPIME 2 GM in NA CHLORIDE 0.9% 100 ML IV SCH ×3 (01:44→16:49)
[2022-11-25 07:05] LABS: Magnesium 1.9 mg/dL (1.6-2.4); Phosphorus 2.3 mg/dL (2.5-4.9); Potassium 3.6 mEq/L (3.5-5.1)
[2022-11-25] MEDS: CLOPIDOGREL 75 MG TABLET PO SCH (08:30)
[2022-11-25] MEDS: POTASS/SODIUM PHOSPHATE 1 PKT POWD.PACK PO SCH ×3 (08:30→11:07)
[2022-11-25] MEDS: ASPIRIN 81 MG CHEWABLE TABLET PO SCH (08:30)
[2022-11-25] MEDS: ENOXAPARIN 40 MG/0.4 ML SQ SCH (08:31)
--- NOTE | 2022-11-25 09:34 | P.PN ---
Date of Service: 11/25/22 Chief Complaint: RLE swelling\\redness\\pain Subjective: Patient seen and examined at bedside. No acute events reported overnight. In no apparent distress. Breathing comfortably on room air. Denies any new or worsening complaints. Physical Examination Temp Pulse Resp BP Pulse Ox 98.5 F 78 16 107/53 L 92 11/25/22 08:00 11/25/22 08:00 11/25/22 08:00 11/25/22 08:00 11/25/22 08:00 General: Alert, In no apparent distress, Oriented x2-3 HEENT: Atraumatic, Normocephalic Neck: Supple, JVD not distended Respiratory: Clear to auscultation bilaterally, Normal air movement. on room air. Cardiovascular: No edema, Normal pulses Gastrointestinal: Normal bowel sounds, Soft and benign, No tenderness Integumentary: Tenderness/swelling right foot. Erythema right foot. Neurological: Normal speech, Normal tone, Normal affect Laboratory Data - Reviewed Microbiology data -Reviewed Imagings Data: -Reviewed Medications List: Reviewed Assessment and Plan Problem List Cellulitis of Right Lower Extremity Peripheral Vascular Disease Overactive Bladder Dementia Cellulitis of Right Foot - Arterial vs pressure ulcer of right second toe - Arterial ultrasound: " Moderate right and mild left peripheral vascular disease." - Venous ultrasound without evidence of DVT in the right lower extremity - XR right foot 11/23: " No acute osseous abnormality. Soft tissue swelling about the forefoot and midfoot. Diffuse osteopenia limits evaluation. " - Currently on Cefepime and Vancomycin (started 11/23) - Concern for ostemyelitis right foot. MRI pending. - Wound culture 11/24: preliminary, no organisms seen - Blood cultures 11/23: no growth to date - No leukocytosis. Afebrile. Recommendations - Right foot cellulitis: Continue Cefepime and Vancomycin for now. - MRI right foot pending. Follow up with results. - Follow up with final wound culture results - Keep right toe wound: paint with betadine and cover with foam dressing Case discussed with Louis Ho
--- NOTE | 2022-11-25 17:11 | P.PN ---
Subjective Date of Service: 11/25/22 Chief Complaint: RLE swelling\\redness\\pain No new events. She was unable to complete MRI yesterday due to foot pain. She is agreeable to have MRI attempted today if pre-medicated with pain medication. She denies any fevers, chills. Review of Systems 10-point ROS is otherwise unremarkable Musculoskeletal: Foot Pain (right) Physical Examination - Vital Signs Temperature: 98.5 F Blood Pressure: 109/54 Pulse: 79 Respirations: 16 Pulse Ox (%): 93 - Studies Microbiology Data (last 24 hrs): 11/23/22 14:45 Blood - Blood Anaerobic Blood Culture - Final 11/23/22 15:00 Blood - Blood Anaerobic Blood Culture - Final Assessment And Plan - Plan - Physical Exam General: Alert, In no apparent distress, Oriented x 2 (baseline per brother) HEENT: Atraumatic, Mucous membr. moist/pink, Sclerae nonicteric Neck: JVD not distended Respiratory: Clear to auscultation bilaterally, Normal air movement Cardiovascular: No edema, Regular rate/rhythm, No murmurs Gastrointestinal: Normal bowel sounds, Soft, Non-distended, No tenderness Integumentary: Skin breakdown, Tenderness/swelling, Erythema, Warmth (right 2nd toe) Neurological: Normal speech, Normal affect # Right Foot Cellulitis - Does not meet sepsis criteria - Radiology: - Right foot x-ray = "no acute osseous abnormality. Soft tissue swelling about the forefoot and midfoot. Diffuse osteopenia limits evaluation." - Right lower extremity Doppler = "no DVT in the right lower extremity." - Infectious Diseases consulted and spoke with NDT INSPECTOR Adin - recommendations appreciated - Continue vancomycin + cefepime for now - Plan for MRI right foot today - As needed pain control # Moderate Right and Mild Left Peripheral Artery Disease - Bilateral lower extremity arterial Doppler = "moderate right and mild left peripheral vascular disease." - Continue aspirin + clopidogrel - Started atorvastatin # Alzheimer's Dementia # Depression - Reconcile home medications once verified Aydin Baca M.D.
[2022-11-25] MEDS: ATORVASTATIN 40 MG TAB PO SCH (22:19)
[2022-11-25] MEDS: VANCOMYCIN 1.5 GM in NA CHLORIDE 0.9% 500 ML IVPB SCH (22:19)
[2022-11-26] MEDS: CEFEPIME 2 GM in NA CHLORIDE 0.9% 100 ML IV SCH ×3 (00:52→16:15)
[2022-11-26 05:17] LABS: Magnesium 1.8 mg/dL (1.6-2.4); Phosphorus 2.2 mg/dL (2.5-4.9); Potassium 3.6 mEq/L (3.5-5.1)
[2022-11-26] MEDS ORDERED: MAGNESIUM SULFATE 1 gm IVPB 1 GM/100 ML BAG IV ONE (05:23)
[2022-11-26] MEDS ORDERED: POTASSIUM 25 MEQ EFFERV TAB PO ONE (05:26)
[2022-11-26] MEDS: POTASS/SODIUM PHOSPHATE 1 PKT POWD.PACK PO SCH ×5 (06:28→16:49)
[2022-11-26] MEDS ORDERED: NA CHLORIDE 0.9% 100 ML ONE (09:30)
[2022-11-26] MEDS ORDERED: CEFEPIME 2 GM VIAL ONE (09:31)
[2022-11-26] MEDS: ENOXAPARIN 40 MG/0.4 ML SQ SCH (09:36)
[2022-11-26] MEDS: ASPIRIN 81 MG CHEWABLE TABLET PO SCH (09:37)
[2022-11-26] MEDS: CLOPIDOGREL 75 MG TABLET PO SCH (09:37)
--- NOTE | 2022-11-26 09:44 | RAD REPORT ---
EXAM DESCRIPTION: CT - Foot Right Wo Con - 11/26/2022 9:25 am CLINICAL HISTORY: Right foot pain swelling COMPARISON: November 23, 2022 x-ray TECHNIQUE: Computed last tomography right foot obtained with coronal and sagittal reconstruction All CT scans are performed using dose optimization technique as appropriate and may include automated exposure control or mA/KV adjustment according to patient size. FINDINGS: The bones are osteoporotic Large plantar calcaneal spur. Hallux valgus deformity. Cortical irregularity involves the distal aspect of second proximal phalanx Diffuse edema within the subcutaneous tissues. No soft tissue abscess is visualized IMPRESSION: Cortical irregularity involves the distal aspect of the second proximal phalanx. This ma y indicate osteomyelitis
--- NOTE | 2022-11-26 13:38 | P.PN ---
Date of Service: 11/26/22 Chief Complaint: RLE swelling\\redness\\pain Subjective: Patient seen and examined at bedside. No acute events reported overnight. Denies any new or worsening complaints. States she is feeling fine. In no apparent distress, breathing comfortably on room air. Physical Examination Temp Pulse Resp BP Pulse Ox 98.2 F 87 15 106/59 L 93 11/26/22 11:54 11/26/22 11:54 11/26/22 11:54 11/26/22 11:54 11/26/22 11:54 General: Alert, In no apparent distress, Oriented x2-3 HEENT: Atraumatic, Normocephalic Neck: Supple, JVD not distended Respiratory: Clear to auscultation bilaterally, Normal air movement. on room air. Cardiovascular: No edema, Normal pulses Gastrointestinal: Normal bowel sounds, Soft and benign, No tenderness Integumentary: Tenderness/swelling right foot. Erythema right foot. Neurological: Normal speech, Normal tone, Normal affect Laboratory Data - Reviewed Microbiology data -Reviewed Imagings Data: -Reviewed Medications List: Reviewed Assessment and Plan Problem List Cellulitis of Right Lower Extremity Peripheral Vascular Disease Overactive Bladder Dementia Cellulitis of Right Foot - Arterial vs pressure ulcer of right second toe - Arterial ultrasound: " Moderate right and mild left peripheral vascular disease." - Venous ultrasound without evidence of DVT in the right lower extremity - XR right foot 11/23: " No acute osseous abnormality. Soft tissue swelling about the forefoot and midfoot. Diffuse osteopenia limits evaluation. " - Currently on Cefepime and Vancomycin (started 11/23) - Concern for ostemyelitis right foot. MRI pending. - Wound culture 11/24: 3+ coagulase positive staphylococcus - CT right foot 11/26: "Cortical irregularity involves the distal aspect of the second proximal phalanx. This may indicate osteomyelitis" Blood cultures 11/23: no growth to date No leukocytosis. Afebrile. Recommendations - Right foot cellulitis: Continue Cefepime and Vancomycin for now. Concern for osteomyelitis. - MRI right foot pending. Follow up with results. - Follow up with final wound culture and sensitivity reports - Keep right toe wound: paint with betadine and cover with foam dressing Case discussed with Louis Ho
[2022-11-26] MEDS ORDERED: POTASSIUM CL SA 10 MEQ TAB PO ONE (14:00)
--- NOTE | 2022-11-26 14:05 | P.PN ---
Subjective Date of Service: 11/26/22 Chief Complaint: RLE swelling\\redness\\pain No new events. MRI was unable to be obtained today. Ordered CT as an alternative, which concerning for osteomyelitis. Consulted General Surgery. She denies any fevers, chills. Review of Systems 10-point ROS is otherwise unremarkable Integumentary: Other (right 2nd toe) Physical Examination - Vital Signs Temperature: 98.2 F Blood Pressure: 106/59 Pulse: 87 Respirations: 15 Pulse Ox (%): 93 Assessment And Plan - Plan - Physical Exam General: Alert, In no apparent distress, Oriented x 2 (baseline per brother) HEENT: Atraumatic, Mucous membr. moist/pink, Sclerae nonicteric Respiratory: Clear to auscultation bilaterally, Normal air movement Cardiovascular: No edema, Regular rate/rhythm, No murmurs Gastrointestinal: Soft, Non-distended, No tenderness Integumentary: Skin breakdown, Tenderness/swelling, Erythema, Warmth (right 2nd toe) Neurological: Normal speech, Normal affect # Right Foot Cellulitis with Staphylococcus Osteomyelitis - Does not meet sepsis criteria - Radiology: - Wound culture = 3+ Coagulase-Positive Staphylococcus - Right foot x-ray = "no acute osseous abnormality. Soft tissue swelling about the forefoot and midfoot. Diffuse osteopenia limits evaluation." - Right lower extremity Doppler = "no DVT in the right lower extremity." - Unable to obtain MRI foot - CT right foot = "cortical irregularity involves the distal aspect of the second proximal phalanx. This may indicate osteomyelitis" - Infectious Diseases consulted and spoke with SLIDE FASTENER CHAIN ASSEMBLER Adin - recommendations appreciated - Continue vancomycin + cefepime for 6 weeks (end date: 01/05/2023) - General Surgery consulted and notified Dr. Adame - recommendations appreciated - As needed pain control # Moderate Right and Mild Left Peripheral Artery Disease - Bilateral lower extremity arterial Doppler = "moderate right and mild left peripheral vascular disease." - Continue aspirin, atorvastatin, clopidogrel # Alzheimer's Dementia # Depression - Reconcile home medications once verified Aydin Baca M.D.
[2022-11-26] MEDS: NYSTATIN PWDR 100000 UNIT/GM TOP SCH ×2 (16:45→20:28)
[2022-11-26] MEDS: ATORVASTATIN 40 MG TAB PO SCH (20:28)
[2022-11-26] MEDS ORDERED: DIPHENHYDRAMINE 25 MG TAB/CAP PO PRN (20:38)
[2022-11-26] MEDS: VANCOMYCIN 1.5 GM in NA CHLORIDE 0.9% 500 ML IVPB SCH ×2 (21:51→22:00)
[2022-11-26] MEDS ORDERED: METHYLPREDNISOLONE 40 MG INJ IV ONE (22:41)
[2022-11-26] MEDS ORDERED: FAMOTIDINE 20 MG/2 ML VIAL IV ONE (23:00)
[2022-11-27] MEDS: CEFEPIME 2 GM in NA CHLORIDE 0.9% 100 ML IV SCH ×3 (01:25→16:15)
[2022-11-27 07:50] LABS: Magnesium 2.2 mg/dL (1.6-2.4); Phosphorus 2.2 mg/dL (2.5-4.9); Potassium 4.6 mEq/L (3.5-5.1)
[2022-11-27] MEDS ORDERED: POTASSIUM PHOS IN 0.9 % NACL 15 MMOL/250 ML BAG IV ONE (08:03)
[2022-11-27] MEDS: ASPIRIN 81 MG CHEWABLE TABLET PO SCH (08:51)
[2022-11-27] MEDS: ENOXAPARIN 40 MG/0.4 ML SQ SCH (08:51)
[2022-11-27] MEDS: CLOPIDOGREL 75 MG TABLET PO SCH (08:51)
[2022-11-27] MEDS: NYSTATIN PWDR 100000 UNIT/GM TOP SCH ×2 (09:14→20:13)
[2022-11-27] MEDS ORDERED: MIDAZOLAM HCL 2 MG/2 ML INJ ONE (16:25)
[2022-11-27] MEDS ORDERED: propofoL 200 MG/20 ML VIAL IV ONE (16:25)
[2022-11-27] MEDS ORDERED: FENTANYL CITR 100 MCG/2 ML ONE (16:26)
[2022-11-27] MEDS ORDERED: LIDOCAINE 1% MPF 5 ML VIAL ONE (16:26)
[2022-11-27] MEDS ORDERED: ONDANSETRON 4 MG/2 ML VIAL ONE (16:26)
--- NOTE | 2022-11-27 16:48 | PN ---
Subjective: Patient is lying in bed. No new acute event. Chart reviewed. Objective: Vital Signs: Temperature 97, pulse 85, respirations 16, blood pressure . Lungs: Basal crackles. Heart: S1, S2. Regular. Abdomen: Soft, nontender. Bowel sounds present. Extremities: No edema. Laboratory Data: Reviewed. BUN 19, creatinine 0.6 with GFR of 89. Micro data: MRSA of the right b ig toe. Wound cultures currently on cefepime and vancomycin. Assessment And Plan: Right foot cellulitis with staphylococcus, osteomyelitis. Consider 6 weeks of antibiotic. Continue wound care with Betadine and keep leg elevated when possible. Peripheral arter ial disease, Alzheimer disease. NF/MODL Voice ID: [id number] Report ID: [id number]
[2022-11-27] MEDS ORDERED: Ringers Lactate 1,000 ML IV ONE (16:49)
--- NOTE | 2022-11-27 17:32 | P.OP ---
Preoperative diagnosis: Osteomyelitis of 2nd Toe of RIGHT foot Postoperative diagnosis: Osteomyelitis of 2nd Toe of RIGHT foot Primary procedure: Amputation of 2nd Toe of RIGHT foot Anesthesia: GETA + Local Estimated blood loss: <1cc Specimen: 2nd toe Findings: Osteomyelitis of 2nd Toe of RIGHT foot Complications: None Transferred to: Recovery Room Condition: Good
[2022-11-27] MEDS ORDERED: KETOROLAC 30 MG/ML INJ ONE (17:34)
[2022-11-27] MEDS ORDERED: LIDOCAINE HCL/EPINEPHRINE 20 ML MDV ONE (17:39)
--- NOTE | 2022-11-27 19:41 | P.PN ---
Subjective Date of Service: 11/27/22 Chief Complaint: RLE swelling\\redness\\pain Overnight, she developed a diffuse erythematous rash with concern for urticaria. She was treated with methylprednisolone, famotidine, and diphenhydramine. Would appear that this may have been a reaction to vancomycin. Will switch vancomycin to daptomycin. General surgery consulted with plan for possible second right toe amputation today. She denies any pain. Review of Systems 10-point ROS is otherwise unremarkable Integumentary: Rash Physical Examination - Vital Signs Temperature: 97.3 F Blood Pressure: 92/43 Pulse: 73 Respirations: 17 Pulse Ox (%): 98 Assessment And Plan - Plan - Physical Exam General: Alert, In no apparent distress, Oriented x 2 (baseline per brother) HEENT: Atraumatic, Mucous membr. moist/pink, Sclerae nonicteric Respiratory: Clear to auscultation bilaterally, Normal air movement Cardiovascular: No edema, Regular rate/rhythm, No murmurs Gastrointestinal: Soft, Non-distended, No tenderness Integumentary: Tenderness/swelling, Erythema, Warmth (right 2nd toe) Neurological: Normal speech, Normal affect # Right Foot Cellulitis with Methicillin-Resistant Staphylococcus Aureus Osteomyelitis - Does not meet sepsis criteria - Radiology: - Wound culture = MRSA - Right foot x-ray = "no acute osseous abnormality. Soft tissue swelling about the forefoot and midfoot. Diffuse osteopenia limits evaluation." - Right lower extremity Doppler = "no DVT in the right lower extremity." - Unable to obtain MRI foot - CT right foot = "cortical irregularity involves the distal aspect of the second proximal phalanx. This may indicate osteomyelitis" - Infectious Diseases consulted - recommendations appreciated - Vancomycin switched to Daptomycin - General Surgery consulted - recommendations appreciated - Plan for possible right 2nd toe amputation today - As needed pain control # Moderate Right and Mild Left Peripheral Artery Disease - Bilateral lower extremity arterial Doppler = "moderate right and mild left peripheral vascular disease." - Continue aspirin, atorvastatin, clopidogrel # Alzheimer's Dementia # Depression - Reconcile home medications once verified Aydin Baca M.D.
--- NOTE | 2022-11-27 19:48 | OP ---
Date of Procedure: 11/27/2022 Surgeon: Shahriar Adame MD, Preoperative Diagnosis: Osteomyelitis, second toe of the right foot. Postoperative Diagnosis: Osteomyelitis, second toe of the right foot. Procedure Performed: Amputation of the second toe of the right foot. Anesthesia: General endotracheal plus local with 1% lidocaine with epinephrine. Estimated Fluid Loss: 1 cc. Specimen: Second toe. Findings: Osteomyelitis of the second toe extending up to the metatarsophalangeal joint. Complications: None. Disposition: Patient was transferred to recovery room in good condition. Procedure In Detail: After informed consent was obtained from the patient and her medical power of a ttorney, patient was prepped and draped in the usual sterile fashion. After adequate anesthesia was achieved, based on a plantar flap, I demarcated the area of dissection and the use of 15 blade to cir cumferentially dissect out these tissue planes down circumferentially down into subcutaneous tissues. I cut through the tendinous connections and ligamentous attachments between the metatarsophalangeal joint down through the tissues and made a clean cut using scissors at this point. The toe was then ligated, sent off for pathologic examination. The area was copiously irrigated. Minimal hemostat wa s required. The blood supply in the area was generally not great. There was no significant bleeding encountered throughout the procedure. The area was copiously irrigated again and suctioned out comp letely dry. Then, the skin was reapproximated and a tissue flap was placed on a plantar flap and jose carlos sed with interrupted 3-0 nylon sutures with good approximation of tissues and a sterile drape placed over top. Patient tolerated the procedure well without evidence of complication and transferred to P ACU in good condition. All counts were correct at the end of the case. TK/MODL Voice ID: [id number] Report ID: [id number]
[2022-11-27] MEDS: DAPTOmycin 500 MG in NA CHLORIDE 0.9% 100 ML IVPB SCH (20:12)
[2022-11-27] MEDS: ATORVASTATIN 40 MG TAB PO SCH (20:12)
[2022-11-28] MEDS: CEFEPIME 2 GM in NA CHLORIDE 0.9% 100 ML IV SCH ×2 (00:51→09:19)
[2022-11-28 06:54] LABS: Phosphorus 2.8 mg/dL (2.5-4.9); Potassium 4.2 mEq/L (3.5-5.1)
[2022-11-28] MEDS: ASPIRIN 81 MG CHEWABLE TABLET PO SCH (09:18)
[2022-11-28] MEDS: ENOXAPARIN 40 MG/0.4 ML SQ SCH (09:18)
[2022-11-28] MEDS: CLOPIDOGREL 75 MG TABLET PO SCH (09:18)
[2022-11-28] MEDS: NYSTATIN PWDR 100000 UNIT/GM TOP SCH ×2 (09:20→20:42)
--- NOTE | 2022-11-28 13:40 | P.PN ---
Subjective Date of Service: 11/28/22 Chief Complaint: RLE swelling\\redness\\pain POD # 1 amputation of her right second toe. She tolerated the procedure well. She reports that her pain is well-controlled. She denies any fevers or chills. Per. Dr. Adame, plan for antibiotics x 7 days. Per discussion with Dr. Pruitt, he recommends daptomycin due to allergic reaction to vancomycin. Review of Systems 10-point ROS is otherwise unremarkable Physical Examination - Vital Signs Temperature: 97.2 F Blood Pressure: 103/49 Pulse: 78 Respirations: 19 Pulse Ox (%): 95 Assessment And Plan - Plan - Physical Exam General: Alert, In no apparent distress, Oriented x 2 (baseline per brother) HEENT: Atraumatic, Mucous membr. moist/pink, Sclerae nonicteric Respiratory: Clear to auscultation bilaterally, Normal air movement Cardiovascular: No edema, Regular rate/rhythm, No murmurs Gastrointestinal: Soft, Non-distended, No tenderness Integumentary: Right foot covered in clean dressing Neurological: Normal speech, Normal affect # Right Foot Cellulitis with Methicillin-Resistant Staphylococcus Aureus Osteomyelitis - Does not meet sepsis criteria - Radiology: - Wound culture = MRSA - Right foot x-ray = "no acute osseous abnormality. Soft tissue swelling about the forefoot and midfoot. Diffuse osteopenia limits evaluation." - Right lower extremity Doppler = "no DVT in the right lower extremity." - CT right foot = "cortical irregularity involves the distal aspect of the second proximal phalanx. This may indicate osteomyelitis" - Infectious Diseases consulted and spoke with Dr. Pruitt - Continue daptomycin x 7 days - day 2 of 7 - General Surgery consulted and spoke with Dr. Adame -S/P right second toe amputation on 11/27 - As needed pain control # Allergic Dermatitis secondary to Vancomycin Responded well to methylprednisolone, famotidine, and diphenhydramine Rash is no longer present Vancomycin has been added to her allergy list # Moderate Right and Mild Left Peripheral Artery Disease - Bilateral lower extremity arterial Doppler = "moderate right and mild left peripheral vascular disease." - Continue aspirin, atorvastatin, clopidogrel # Alzheimer's Dementia # Depression - Reconcile home medications once verified Aydin Baca M.D.
[2022-11-28 13:56] LABS: Absolute Lymphocytes (CBC) 0.8 K/uL (0.7-4.9); Hematocrit 35.5 % (36.0-45.0); Lymphocytes % 12.5 % (15.3-44.8); MCV 92.2 fL (80-100); MPV 6.8 fL (7.6-11.3); Platelets 181 thou/uL (152-406); RBC Red Blood Cell Count 3.85 M/uL (3.86-4.86)
[2022-11-28] MEDS: ATORVASTATIN 40 MG TAB PO SCH (20:42)
[2022-11-28] MEDS: DAPTOmycin 500 MG in NA CHLORIDE 0.9% 100 ML IVPB SCH (20:42)
[2022-11-28 22:28] VITALS: O2SAT 97
[2022-11-29 06:31] LABS: Potassium 3.7 mEq/L (3.5-5.1)
[2022-11-29] MEDS: ASPIRIN 81 MG CHEWABLE TABLET PO SCH (08:09)
[2022-11-29] MEDS: CLOPIDOGREL 75 MG TABLET PO SCH (08:09)
[2022-11-29] MEDS: NYSTATIN PWDR 100000 UNIT/GM TOP SCH ×2 (08:09→20:31)
[2022-11-29] MEDS: ENOXAPARIN 40 MG/0.4 ML SQ SCH (08:09)
[2022-11-29] MEDS ORDERED: POTASSIUM CL SA 10 MEQ TAB PO ONE (09:00)
--- NOTE | 2022-11-29 12:53 | P.PN ---
Subjective Date of Service: 11/29/22 Chief Complaint: RLE swelling\\redness\\pain POD # 2 amputation of her right second toe. She tolerated the procedure well. She denies any pain. Will arrange for PICC line placement, as she will require IV daptomycin at discharge. She denies any concerns this morning. Review of Systems 10-point ROS is otherwise unremarkable General: Weakness (generalized) Physical Examination - Vital Signs Temperature: 97.4 F Blood Pressure: 155/72 Pulse: 76 Respirations: 18 Pulse Ox (%): 99 - Studies Microbiology Data (last 24 hrs): 11/23/22 14:45 Blood - Blood Aerobic Blood Culture - Final No growth in 5 days. 11/23/22 14:45 Blood - Blood Anaerobic Blood Culture - Final 11/23/22 15:00 Blood - Blood Aerobic Blood Culture - Final No growth in 5 days. 11/23/22 15:00 Blood - Blood Anaerobic Blood Culture - Final Assessment And Plan - Plan - Physical Exam General: Alert, In no apparent distress, Oriented x 2 (baseline per brother) HEENT: Atraumatic, Mucous membr. moist/pink, Sclerae nonicteric Respiratory: Clear to auscultation bilaterally, Normal air movement Cardiovascular: No edema, Regular rate/rhythm, No murmurs Gastrointestinal: Soft, Non-distended, No tenderness Integumentary: Right foot covered in clean dressing Neurological: Normal speech, Normal affect # Right Foot Cellulitis with Methicillin-Resistant Staphylococcus Aureus Osteomyelitis - Does not meet sepsis criteria - Radiology: - Wound culture = MRSA - Right foot x-ray = "no acute osseous abnormality. Soft tissue swelling about the forefoot and midfoot. Diffuse osteopenia limits evaluation." - Right lower extremity Doppler = "no DVT in the right lower extremity." - CT right foot = "cortical irregularity involves the distal aspect of the second proximal phalanx. This may indicate osteomyelitis" - Infectious Diseases consulted and spoke with Dr. Pruitt - Continue daptomycin x 7 days - day 3 of 7 - PICC line requested - anticipate discharge tomorrow once IV antibiotics are arranged - General Surgery consulted and spoke with Dr. Adame -S/P right second toe amputation on 11/27 - As needed pain control # Allergic Dermatitis secondary to Vancomycin Responded well to methylprednisolone, famotidine, and diphenhydramine Rash is no longer present Vancomycin has been added to her allergy list # Moderate Right and Mild Left Peripheral Artery Disease - Bilateral lower extremity arterial Doppler = "moderate right and mild left peripheral vascular disease." - Continue aspirin, atorvastatin, clopidogrel # Alzheimer's Dementia # Depression - Reconcile home medications once verified Aydin Baca M.D.
--- NOTE | 2022-11-29 13:47 | CON ---
Date of Consultation: 11/27/2022 Brief History Of Present Illness: Patient is an 82-year-old female known to me with past medical his tory of depression, Alzheimer's dementia, peripheral neuropathy, PVD, OAB, who presents with complain ts of right foot tenderness, swelling, pain. She was noted to have necrotic tissue on the third and fourth toes and severe pain in the area and as such she was evaluated. She was noted to have signifi cant infection of the toe and as such I was consulted to see regarding possible amputation as there w as evidence of osteomyelitis. Past Medical History: Significant for depression, Alzheimer's dementia, peripheral neuropathy, PVD, OAB, cellulitis, overactive bladder, lymphedema, venous insufficiency. Past Surgical History: Includes appendectomy, cholecystectomy. Allergies: NO KNOWN DRUG ALLERGIES. Home Medications: Included Myrbetriq, Plavix, Santyl, hydrochlorothiazide, Levaquin, acetaminophen. Social History: Patient denies smoking, alcohol, or recreational drug use. Review of Systems: Ten-point review of systems, patient denies any other than HPI. Physical Examination: At the time of my examination: Vital Signs: Blood pressure 124/82, pulse rate 79, respiratory rate 19, temperature 96.9, SpO2 95% o n room air. General: She is awake, alert, and conversant. She has low-grade confusion. She is accompanied by h er family member who was present during my examination who was her medical power of real estate associate attorney. HEENT: She is otherwise normocephalic. Sclerae anicteric. Mucous membranes moist. Oropharynx jaylan r. Poor dentition. Neck: Supple without JVD. Chest: Expansion and excursion. Cardiovascular: Regular rate and rhythm. Pulmonary: Clear to auscultation bilaterally. Extremities: Focused exam of patient's lower extremities, she has "redness" and swelling of the seco nd toe of the right foot with streaking consistent with an infection of this area. She has a hammert oe as well in the great toe on this side and a slight curve deformity of the great toe. Laboratory Data: Revealed a white blood cell count was 9.3, hemoglobin 13.0, hematocrit 38.3, platel et count was 176. Her sodium was 137, potassium 4.6, chloride 110, carbon dioxide 22, BUN 19, creati nine 0.6, glucose 100, calcium 7.9, phosphorus 2.2, magnesium 2.2. She had imaging performed, which included a CT of the right foot which officially read as cortical irregularity involving the distal a spect of the second proximal phalanx may indicate osteomyelitis. Assessment And Plan: This is an 82-year-old female who comes in with signs and symptoms of osteomyel itis, cellulitis of the second toe of the right foot. 1.IV fluid hydration. 2.Antibiotic coverage. 3.I have explained the risks, benefits, and alternatives of amputation of second toe, including but not limited to, bleeding, infection, damage to surrounding tissues, need for further operation and pr ocedures. Patient agreed to proceed as indicated. Thank you for this interesting consult. IAN Voice ID: [id number] Report ID: [id number]
--- NOTE | 2022-11-29 18:31 | RAD REPORT ---
EXAM DESCRIPTION: RADChest Single View11/29/2022 5:35 pm CLINICAL HISTORY: PICC line placement COMPARISON: Chest Single View dated 10/29/2022; Chest Single View dated 06/07/2021; Chest Single View d ated 06/03/2021; Chest Single View dated 05/29/2021 TECHNIQUE: Portable AP view of the chest. FINDINGS: Right arm PICC in place with tip projecting over the distal SVC. Patient rotation limits e valuation. Left small to moderate layering effusion with underlying patchy airspace opacification. Ri ght lung is clear. No pneumothorax. The cardiomediastinal contours are unremarkable. IMPRESSION: Right arm PICC in satisfactory position. Left small to moderate layering effusion with underlying patchy airspace opacification. Underlying pn eumonia should be considered.
[2022-11-29] MEDS: DAPTOmycin 500 MG in NA CHLORIDE 0.9% 100 ML IVPB SCH (20:30)
[2022-11-29] MEDS: Mupirocin NASAL 2 APPL/1 GM TUBE NAS SCH (20:31)
[2022-11-29] MEDS: ATORVASTATIN 40 MG TAB PO SCH (20:31)
[2022-11-29] MEDS ORDERED: TRAMADOL HCL 50 MG TAB PO PRN (22:38)
[2022-11-29] MEDS ORDERED: TRAZODONE 50 MG TABLET PO SCH (23:00)
[2022-11-29] MEDS ORDERED: DONEPEZIL HCL 5 MG TAB PO SCH (23:00)
--- NOTE | 2022-11-30 05:26 | P.PN ---
Date of Service: 11/30/22 Subjective: Patient is doing well with no new complaints. Clinical symptoms are stable. Physical Exam: Vitals: reviewed GEN: Alert, orientedx2, NAD CV: Regular rate & rhythm, no edema Pulm: Nonlabored respiraitons, clear bilaterally ABD: Soft, nontender, nondistended MSK: No joint tenderness Integumentary: dressing c/d/i Neuro: No focal deficits Problem List: Right Foot Cellulitis with MRSA Osteomyelitis Allergic Dermatitis secondary to Vancomycin Moderate Right and Mild Left Peripheral Artery Disease Alzheimer's Dementia Depression PLAN 1. Continue with IV antibiotic 2. Continue with local wound care 3. Wound care consultation/surgical consultation 4. Gentle IV hydration 5. Monitor CBC 6. Strict blood sugar monitoring 7. Pain control 8. GI and DVT prophylaxis
[2022-11-30] MEDS: CLOPIDOGREL 75 MG TABLET PO SCH (08:18)
[2022-11-30] MEDS: NYSTATIN PWDR 100000 UNIT/GM TOP SCH (08:18)
[2022-11-30] MEDS: ASPIRIN 81 MG CHEWABLE TABLET PO SCH (08:18)
[2022-11-30] MEDS: Mupirocin NASAL 2 APPL/1 GM TUBE NAS SCH (08:19)
[2022-11-30] MEDS: ENOXAPARIN 40 MG/0.4 ML SQ SCH (08:19)
--- NOTE | 2022-11-30 08:47 | P.PN ---
Date of Service: 11/30/22 Chief Complaint: RLE swelling\\redness\\pain Subjective: Patient seen and examined at bedside. She denies any new or worsening complaints at this time. Patient has reportedly been removing her IV lines and was not able to be given IV medication. Physical Examination Temp Pulse Resp BP Pulse Ox 97.6 F 79 16 116/58 L 98 11/30/22 08:00 11/30/22 08:00 11/30/22 08:00 11/30/22 08:00 11/30/22 08:00 General: Alert, In no apparent distress, Oriented x1-2 HEENT: Atraumatic, Normocephalic Neck: Supple, JVD not distended Respiratory: Clear to auscultation bilaterally, Normal air movement. on room air. Cardiovascular: No edema, Normal pulses Gastrointestinal: Normal bowel sounds, Soft and benign, No tenderness Integumentary: Tenderness/swelling right foot. Erythema right foot. Neurological: Normal speech, Normal tone, Normal affect Laboratory Data - Reviewed Microbiology data -Reviewed Imagings Data: -Reviewed Medications List: Reviewed Assessment and Plan Problem List Osteomyelitis of Right Second Toe Cellulitis of Right Foot MRSA Peripheral Vascular Disease Overactive Bladder Dementia Cellulitis of Right Foot - Arterial vs pressure ulcer of right second toe - Arterial ultrasound: " Moderate right and mild left peripheral vascular disease." - Venous ultrasound without evidence of DVT in the right lower extremity - XR right foot 11/23: " No acute osseous abnormality. Soft tissue swelling about the forefoot and midfoot. Diffuse osteopenia limits evaluation. " - Previously on Cefepime and Vancomycin (started 11/23) - Wound culture 11/24: Methicillin-Resistant Staphylococcus aureus (MRSA) - CT right foot 11/26: "Cortical irregularity involves the distal aspect of the second proximal phalanx. This may indicate osteomyelitis" - s/p amputation of right second toe on 11/[address] Adame Blood cultures 11/23: no growth to date No leukocytosis. Afebrile. Recommendations Osteomyelitis right second toe, s/p amputation on 11/27 - On Daptomycin day 4 - Due to patient continuing to remove IV lines and will be returning to her assisted living facility upon discharge, Consider switch to Zyvox PO x 3-5 days - Wound care per Dr. Adame, continue to follow up as outpatient Case discussed with Louis Ho
[2022-11-30] MEDS ORDERED: BUSPIRONE HCL 5 MG TABLET PO SCH (09:00)
[2022-11-30] MEDS ORDERED: Mirabegron [Myrbetriq] 50 MG Tab.Er.24h PO SCH (09:00)
[2022-11-30] MEDS ORDERED: CITALOPRAM 10 MG TABLET PO SCH (09:00)
[2022-11-30 12:59] LABS: Potassium 4.9 mEq/L (3.5-5.1)
[2022-11-30] MEDS ORDERED: LINEZOLID 600 MG TAB PO SCH (13:00)
[2022-11-30 16:41] VITALS: BP 132/61
[2022-11-30 16:42] VITALS: TEMP 97.6
[2022-11-30] MEDS ORDERED: GABAPENTIN 300 MG CAP PO SCH (21:00)
== END 2022-11-30 19:12 | disposition home or self-care (01) | DRG 504 ==
LOC: ER 14:19 → ERHOLD 17:32 → 4TH 20:38
PROVIDERS: ADMIT Internal Medicine; ATTEND Hospitalist
PROC: 0Y6R0Z0 Detachment at Right 2nd Toe, Complete, Open Approach (ICD-10-PCS; principal; 2022-11-27 14:45)
PROC: 02HV33Z Insertion of Infusion Device into Superior Vena Cava, Percutaneous Approach (ICD-10-PCS; 2022-11-29)
DX: M86.171 Other acute osteomyelitis, right ankle and foot (principal); F02.84 Dementia in other diseases classified elsewhere, unspecified severity, with anxiety; B95.62 Methicillin resistant Staphylococcus aureus infection as the cause of diseases classified elsewhere; L03.031 Cellulitis of right toe; I73.9 Peripheral vascular disease, unspecified; G30.9 Alzheimer's disease, unspecified; G62.9 Polyneuropathy, unspecified; Z90.49 Acquired absence of other specified parts of digestive tract; N32.81 Overactive bladder; E87.6 Hypokalemia; E83.39 Other disorders of phosphorus metabolism; L27.0 Generalized skin eruption due to drugs and medicaments taken internally; T36.8X5A Adverse effect of other systemic antibiotics, initial encounter
CPT/HCPCS: 36415; 71045; 73700; 80048; 80053; 80202; 82550; 83605; 83735; 84100; 84132; 85025; 85610; 85730; 87040; 87070; 87077; 87186; 87205; 88305; 88311; 93005; 93925; 93971; 96374; 99285; J0692; J0878; J1650; J2001; J2250; J2270; J2405; J2704; J2920; J3010; J3475; J7040; J7050; J7120